=== PATIENT | female | born 1995 | race Caucasian/White ===

== ENCOUNTER 2021-02-21 18:49 | Emergency (ER) | payer OTHER, SELFPAY ==
[2021-02-21 19:03] VITALS: BP 151/97; PULSE 110; RESP 18; TEMP 36.9; O2SAT 98
--- NOTE | 2021-02-21 19:22 | ED.URI ---
HPI - URI/Sore Throat General Chief Complaint: Upper Respiratory Infection Stated Complaint: trouble breathing Source: patient Mode of arrival: ambulatory History of Present Illness HPI Narrative: This is 26-year-old female with a history of asthma for the last week has had nasal congestion with sinus pressure and postnasal drip and currently having some audible wheezing with mild shortness of breath no chest pain no abdominal pain no nausea vomiting. The patient has albuterol but she has run out. Currently is no fever chills had a negative COVID approximately 2 weeks ago MD elicited complaint: cough, nasal congestion and sinus pain Pertinent past history: asthma Onset (ago): week(s) Consistency: constant Severity: moderate Description of mucous: clear Able to tolerate fluids by mouth: Yes Related Data Allergies Allergy/AdvReac Type Severity Reaction Status Date / Time No Known Allergies Allergy Verified 02/04/21 08:44 Review of Systems Review of Systems: All systems reviewed & are unremarkable except as noted in HPI and below PMFSH Past Medical History Medical History Asthma Chronic low back pain History of streptococcal sore throat Menorrhagia Morbid obesity Nicotine addiction Screening for cervical cancer Surgical History Surgical History Hx laparoscopic cholecystectomy Apr 2020 Family History Family History Father Family history of renal failure Grandparent Diabetes mellitus Social History Social History Smoking status: Current every day smoker Alcohol use details: denies alcohol use Substance use: never Substance use type: does not use Exam Const: General: no acute distress and alert Orientation/consciousness: patient oriented x3 HENMT: Head: normal to inspection Eyes: Conjunctivae: conjunctivae normal Pupils: Equal, round and reactive pupils present Neck: Neck: normal visual inspection, no lymphadenopathy and no meningeal signs Chest: Chest palpation & inspection: normal inspection of the chest Resp: Effort & Inspection: normal respiratory effort Auscultation: wheezes Cardio: Rate: regular rate and tachycardic GI: GI Palp: Yes Soft to palpation Percussion: Yes normal to percussion : General: Yes no CVA tenderness Skin: General skin exam: normal color Rashes: no rashes Extrem: General: normal to inspection Course Course Emergency Course: patient received a g of ceftriaxone, nebulizer treatment and IM steroids and symptoms have improved. Vital Signs Vital signs: Vital Signs Temperature 36.9 C 02/21/21 19:03 Pulse Rate 110 H 02/21/21 19:03 Respiratory Rate 18 02/21/21 19:03 Blood Pressure 151/97 H 02/21/21 19:03 Pulse Oximetry 98 02/21/21 19:03 Temperature 36.9 C 02/21/21 19:03 Pulse Rate 110 H 02/21/21 19:03 Respiratory Rate 18 02/21/21 19:03 Blood Pressure 151/97 H 02/21/21 19:03 Pulse Oximetry 98 02/21/21 19:03 Critical Care Time Critical Care Time Critical Care Time: No Discharge Plan Discharge Clinical Impression: Upper respiratory tract infection Qualifiers: URI type: unspecified URI Qualified Code(s): J06.9 - Acute upper respiratory infection, unspecified Patient Disposition: Home, Self-Care Condition: Stable Instructions: Antibiotic Form, Upper Respiratory Infection (ED) Additional Instructions: take medicine as prescribed and follow-up with primary care physician if symptoms persist or worsen. Prescriptions: New albuterol sulfate [ProAir HFA] 90 mcg/actuation HFA aerosol inhaler 2 puff inhalation QID PRN (Reason: shortness of breath or wheezing) Qty: 6.7 RF: 0 prednisone 20 mg tablet 20 mg PO DAILY 5 Days Qty: 5 RF: 0 azithromycin [Zithromax Z-Pa
[2021-02-21 19:25] VITALS: PULSE 110; RESP 20; O2SAT 97
[2021-02-21] MEDS: cefTRIAXone 1 GM VIAL IM (19:27)
[2021-02-21] MEDS: ALBUTEROL SULFATE NEB 1.25 MG/3 ML INH INHALATION (19:30)
[2021-02-21] MEDS: LIDOCAINE HCL 1% LOCAL INJ 20 ML VIAL (19:31)
[2021-02-21] MEDS: methylPREDNISolone ACETATE 40 MG/ML VIAL 80 MG IM (19:31)
[2021-02-21 19:38] VITALS: PULSE 105; RESP 20; O2SAT 98
[2021-02-21 19:42] VITALS: BP 142/96; PULSE 103; RESP 20; TEMP 36.6; O2SAT 96
== END 2021-02-21 19:48 | disposition home or self-care (01) ==
PROVIDERS: Emergency Provider Emergency Medicine
DX: J06.9 Acute upper respiratory infection, unspecified (principal)
CPT/HCPCS: 94640; 96372; 99283; 99284; J0696; J1030

== ENCOUNTER 2021-04-27 17:16 | Emergency (ER) | payer OTHER, SELFPAY ==
--- NOTE | ~2021-04-27 | XR_ITS ---
EXAMINATION: XR chest 1V portable INDICATION: Cough and shortness of breath TECHNIQUE: Portable AP chest at 1814 hours COMPARISON: None available FINDINGS: There are minimal airspace opacities of the lung bases. No pleural effusion or pneumothorax is identified. The cardiomediastinal silhouette is normal. IMPRESSION: 1. Minimal bibasilar airspace opacities, consistent with atelectasis versus pneumonia. Reviewed, dictated and finalized at location F. [facility] ASSISTANT IMPRESSION: 1. Minimal bibasilar airspace opacities, consistent with atelectasis versus pne umonia.
[2021-04-27 17:38] VITALS: BP 135/69; PULSE 100; RESP 20; TEMP 36.3; O2SAT 98
--- NOTE | 2021-04-27 17:51 | ED.URI ---
HPI - URI/Sore Throat General Chief Complaint: Upper Respiratory Infection Stated Complaint: possible bronchitis Source: patient and RN notes reviewed Mode of arrival: ambulatory Limitations: no limitations History of Present Illness HPI Narrative: patient started out with headache body aches runny nose and congestion 9 days ago. Then 3 days ago she started coughing. She took an [id number] COVID test that was negative. MD elicited complaint: cough, sore throat, rhinorrhea and nasal congestion Onset (ago): day(s) (3) Consistency: constant Able to tolerate fluids by mouth: Yes Exacerbating factors: other (coughing) Relieving factors: nothing Treatments prior to arrival: none Related Data Home Medications Medication Instructions Recorded Confirmed No Home Medications 04/27/21 04/27/21 Allergies Allergy/AdvReac Type Severity Reaction Status Date / Time No Known Allergies Allergy Verified 04/27/21 17:50 Review of Systems Review of Systems: All systems reviewed & are unremarkable except as noted in HPI and below PMFSH Past Medical History Medical History Asthma Chronic low back pain History of streptococcal sore throat Menorrhagia Morbid obesity Nicotine addiction Screening for cervical cancer Surgical History Surgical History Hx laparoscopic cholecystectomy Apr 2020 Family History Family History Father Family history of renal failure Grandparent Diabetes mellitus Social History Social History Smoking status: Current every day smoker Alcohol use details: denies alcohol use Substance use: never Substance use type: does not use Exam Const: General: healthy appearing, no acute distress and alert Nutritional Appearance: well nourished and obese morbidly obese Orientation/consciousness: patient oriented x3 Other: Female nurse in room during examination. HENMT: Head: normal to inspection Ears: external ears normal Eyes: Conjunctivae: conjunctivae normal Pupils: Equal, round and reactive pupils present EOM: EOMs intact bilaterally Neck: Neck: normal visual inspection Resp: Effort & Inspection: normal respiratory effort Auscultation: clear to auscultation bilaterally Cardio: Rate: regular rate Rhythm: regular rhythm GI: GI Palp: Yes Soft to palpation and No Tenderness to palpation present (GI) Auscultation: normal bowel sounds Back/Spine/Pelvis: Cervical Spine: cervical ROM normal Thoracic/Lumbar Spine: thoraco-lumbar ROM normal Skin: General skin exam: normal color Rashes: no rashes Neuro: General: patient oriented x3, moves all extremities, no meningeal signs, no focal motor deficits and CN's II-XI intact bilaterally Speech: normal speech Gait exam (Neuro): Normal gait present Extrem: General: normal to inspection and no clubbing, cyanosis or edema Psych: Appearance: grossly normal and well kempt Mental Status: mental status grossly normal Affect: normal affect and Anxious affect present Attitude: cooperative Thought content: Yes Normal thought content present Course Vital Signs Vital signs: Vital Signs Temperature 36.3 C L 04/27/21 17:38 Pulse Rate 100 04/27/21 17:38 Respiratory Rate 20 04/27/21 17:38 Blood Pressure 135/69 04/27/21 17:38 Pulse Oximetry 98 04/27/21 17:38 Temperature 36.3 C L 04/27/21 17:38 Pulse Rate 100 04/27/21 17:38 Respiratory Rate 20 04/27/21 17:38 Blood Pressure 135/69 04/27/21 17:38 Pulse Oximetry 98 04/27/21 17:38 MDM - URI/Sore Throat Lab Data Labs: Lab Results 04/27/21 Range/Units 18:00 SARS-CoV-2 RNA (RT-PCR) Negative (Negative) Discharge Plan Discharge Clinical Impression: Bronchitis Patient Disposition: Home, Self-Care Condition: Stabl
--- NOTE | 2021-04-27 17:59 | PC.NURSE ---
Assisted Dr. Bolton with exam. Covid swab obtained and walked to lab.
[2021-04-27 18:50] LABS: SARS-CoV-2 RNA PCR Negative (Negative)
== END 2021-04-27 19:20 | disposition home or self-care (01) ==
PROVIDERS: Emergency Provider Emergency Medicine
DX: J40 Bronchitis, not specified as acute or chronic (principal); Z20.822 Contact with and (suspected) exposure to COVID-19
CPT/HCPCS: 71045; 99282; 99283; C9803; U0003; U0005

== ENCOUNTER 2021-07-14 19:29 | Emergency (ER) | payer OTHER, SELFPAY ==
--- NOTE | ~2021-07-14 | XR_ITS ---
XR foot RT 2V DATE: 07/14/2021 20:10 INDICATION: Twisted ankle during a fall. Right ankle and foot pain TECHNIQUE: AP and lateral views COMPARISON: None FINDINGS: No fracture or dislocation, periosteal reaction or bone destruction. Joint spaces are prese rved. No erosive change. IMPRESSION: Negative Reviewed, dictated and finalized at location A. IMPRESSION: Negative
--- NOTE | ~2021-07-14 | XR_ITS ---
XR ankle RT min 3V DATE: 07/14/2021 20:10 INDICATION: Twisted ankle during a fall. Lateral pain. TECHNIQUE: 4 views of ankle COMPARISON: None FINDINGS: No fracture or dislocation of the ankle or disruption of the ankle mortise. No periosteal r eaction or bone destruction. IMPRESSION: Negative Reviewed, dictated and finalized at location A. IMPRESSION: Negative
[2021-07-14 19:49] VITALS: BP 129/77; PULSE 120; RESP 16; TEMP 37.1; O2SAT 93
--- NOTE | 2021-07-14 19:49 | ED.LOWEXIN ---
HPI - Extremity Injury (Lower) General Chief Complaint: Extremity Injury, Lower Stated Complaint: RT FOOT Time Seen by Provider: 07/14/21 19:50 History of Present Illness HPI Narrative: 26-year-old female patient is here with complaints of twisting her ankle around 2:00 p.m. this afternoon while stepping out of her porch. She states that she has been unable to bear weight on the entire foot but has been walking on her toes since then. She is complaining of pain around the ankle and in the big toe area. She denies any other injuries. She denies any numbness or tingling to the toes. Patient has used some leftover crutches from before but states that she is not sure how to use them. Patient is not on any blood thinners. Does have history of asthma and uses albuterol inhaler. She has no known allergies. She is generally in good health. Denies COVID exposure Related Data Home Medications Medication Instructions Recorded Confirmed albuterol sulfate 90 mcg INHALATION PRN 07/14/21 07/14/21 Allergies Allergy/AdvReac Type Severity Reaction Status Date / Time No Known Allergies Allergy Verified 07/14/21 19:55 Review of Systems Review of Systems: All systems reviewed & are unremarkable except as noted in HPI and below PMFSH Past Medical History Medical History Asthma Chronic low back pain History of streptococcal sore throat Menorrhagia Morbid obesity Nicotine addiction Screening for cervical cancer Surgical History Surgical History Hx laparoscopic cholecystectomy Apr 2020 Family History Family History Father Family history of renal failure Grandparent Diabetes mellitus Social History Social History Smoking status: Current every day smoker Alcohol use details: denies alcohol use Substance use: never Substance use type: does not use Exam Narrative: Alert female patient in no acute distress. Stable vital signs. HEENT grossly normal. No respiratory distress. Right lower extremity is examined in patient has minimal swelling around the ankle area. There is no obvious deformity. There is tenderness over the lateral malleolar area and the proximal foot. Range of motion is reduced. Distal neurovascular status is intact. The rest of the physical examination is normal Course Course Emergency Course: x-ray of the right foot and right ankle have been reported negative by the radiologist. No fractures or any dislocation is noted. patient will be given ketorolac for pain relief and she is aware of the discharge plans. She is also fitted with a walking boot since she is a little apprehensive about using crutches. Discharge Plan Discharge Clinical Impression: Ankle sprain Patient Disposition: Home, Self-Care Condition: Stable Instructions: Ankle Sprain (ED) Additional Instructions: Use the walking boot to ambulate with for the next 3-5 days. Elevate and ice the right foot and ankle as needed to keep the swelling down. Tylenol 500 mg and ibuprofen 400 mg every 6-8 hours as needed for pain. Follow-up with your primary care provider in 1 week or sooner as needed. Prescriptions: No Action albuterol sulfate 90 mcg/actuation HFA aerosol inhaler 90 mcg INHALATION PRN RF: 0 Follow-up/Referrals: UNKNOWN,DOCTOR [Primary Care Provider] - Time of Disposition: 20:33
[2021-07-14] MEDS: KETOROLAC (*BKC) 60 MG/2 ML VIAL IM (20:37)
[2021-07-14 20:57] VITALS: BP 130/80; PULSE 100; RESP 16; TEMP 36.6; O2SAT 98
== END 2021-07-14 20:59 | disposition home or self-care (01) ==
PROVIDERS: Emergency Provider Emergency Medicine
DX: S93.401A Sprain of unspecified ligament of right ankle, initial encounter (principal)
CPT/HCPCS: 73610; 73620; 96372; 99283; J1885; L2112

== ENCOUNTER 2021-07-28 03:47 | Emergency (ER) | payer OTHER, SELFPAY ==
--- NOTE | ~2021-07-28 | XR_ITS ---
EXAMINATION: XR chest 1V portable INDICATION: Shortness of breath and wheezing TECHNIQUE: Portable AP chest at 0556 hours COMPARISON: 04/27/2021 FINDINGS: The lung volumes are low. The lungs are free of acute opacities. There is no pleural effusi on or pneumothorax. The cardiomediastinal silhouette is normal. IMPRESSION: 1. No acute cardiopulmonary abnormality. Reviewed, dictated and finalized at location A.
[2021-07-28 04:01] VITALS: BP 167/99; PULSE 110; RESP 21; TEMP 36.7; O2SAT 98
--- NOTE | 2021-07-28 04:58 | ECG_ITS ---
Measurements Intervals [place] Rate: 104 P: 55 CA: 152 QRS: -13 QRSD: 93 T: 14 QT: 325 QTc: 428 Interpretive Statements SINUS TACHYCARDIA LOW QRS VOLTAGE IN PRECORDIAL LEADS [QRS DEFLECTION < 1.0 mV IN CHEST LEADS] POSSIBLE ANTERIOR MYOCARDIAL INFARCTION , PROBABLY OLD [30 ms Q WAVE IN V3/V4, OR R < 0.2 mV IN V4] ABNORMAL ECG NO PREVIOUS ECG AVAILABLE FOR COMPARISON Electronically Signed On 07-28-2021 17:51:43 CDT by Thaddeus Jaime M.D.
[2021-07-28] MEDS: IPRATROPIUM 0.5 MG/ALBUTEROL SULFATE 2.5 MG AMPUL.NEB 3 ML INHALATION (05:14)
[2021-07-28 05:15] VITALS: PULSE 113; RESP 20; O2SAT 96
[2021-07-28 05:23] VITALS: PULSE 108; RESP 20
[2021-07-28] MEDS: methylPREDNISolone SOD SUCC 125 MG VIAL IV PUSH (05:25)
[2021-07-28] MEDS: guaiFENesin 12 HR 600 MG TABCR PO (05:25)
[2021-07-28] MEDS: SODIUM CHLORIDE 0.9% IV 500 ML 999 ML IV CONT (05:28)
[2021-07-28 05:34] LABS: Base Excess ABG 0.5 mmol/L (0-2); HCO3 ABG 23.8 mmol/L (23-29); Oxygen Content ABG 19.6 %vol (16.0-22.0); Oxygen Saturation ABG 94.4 % (95-97); Oxyhemoglobin 92.8 % (94-100); PCO2 ABG 34.7 mmHg (35-45); PO2 ABG 67.5 mmHg (80-90); pH ABG 7.46 (7.35-7.45)
[2021-07-28 05:37] LABS: Basophils Absolute Auto 0.05 K/mm3 (0.00-0.10); Basophils Percent Auto 0.5 % (0.0-1.0); Eosinophils Absolute Auto 0.61 K/mm3 (0.02-0.50); Eosinophils Percent Auto 5.6 % (1.0-6.0); Hematocrit 41.7 % (35.0-49.0); Hemoglobin 14.3 g/dL (12.0-15.0); Immature Granulocyte Percent A 0.9 % (0.0-0.0); Lymphocytes Absolute Auto 2.84 K/mm3 (1.10-4.50); Lymphocytes Percent Auto 25.9 % (18.0-42.0); Mean Corpuscular HGB Conc 34.3 g/dL (32.0-36.0); Mean Corpuscular Hemoglobin 30.5 pg (27.0-31.0); Mean Corpuscular Volume 88.9 fL (78.0-102.0); Mean Platelet Volume 9.7 fl (9.2-11.8); Monocytes Absolute Auto 0.77 K/mm3 (0.10-0.90); Neutrophils Absolute Auto 6.6 K/mm3 (1.7-7.2); Neutrophils Percent Auto 60.1 % (50.0-70.0); Platelet Count Result 341 K/mm3 (150-420); Red Blood Count 4.69 M/mm3 (4.20-5.40); Red Cell Distribution Width 12.5 % (11.6-14.4)
[2021-07-28 05:39] LABS: Add Urine Microscopic? NO; Appearance Urine Clear (Clear); Bilirubin Urine Negative (Negative); Blood Urine Negative (Negative); Color Urine Light Yellow (Yellow); Device ROOM AIR; Glucose Urine UA Negative (Negative); Ketones Urine Negative (Negative); Leukocyte Esterase Ur Negative LEU/UL (Negative); Modified Allen's Test Pass; Nitrate Urine Negative (Negative); Protein Urine Negative (Negative); Site Drawn LEFT RADIAL; Specific Grav Ur 1.015 (1.010-1.020); pH Urine 7.5 (5.0-8.0)
[2021-07-28 06:01] LABS: Alanine Aminotransferase 61 U/L (14-59); Albumin Level 3.7 g/dL (3.4-5.0); Alkaline Phosphatase 90 U/L (46-116); Anion Gap 10 mmol/L (8-16); Aspartate Amino Transferase 22 U/L (15-37); Bilirubin,Total 0.4 mg/dL (0.00-1.00); Blood Urea Nitrogen 14 mg/dL (7-18); Calcium 8.7 mg/dL (8.5-10.1); Carbon Dioxide 26 mmol/L (21-32); Chloride 104 mmol/L (98-108); Estimated Glomerular Filt Rate > 60; Glucose 107 mg/dL (70-99); NT Pro B Type Natriuretic Pept 40 pg/mL (0-125); Osmolality Calculated 290 mOsm/kg (285-295); Potassium 3.8 mmol/L (3.5-5.1); Sodium 140 mmol/L (136-145); Total Protein 7.5 g/dL (6.4-8.2); Troponin I 4.8 ng/L (0.00-60.4)
--- NOTE | 2021-07-28 06:06 | ED.SOB ---
HPI - SOB/Dyspnea General Chief Complaint: Shortness of Breath/Dyspnea Stated Complaint: SOB Time Seen by Provider: 07/28/21 03:49 Source: patient and RN notes reviewed Mode of arrival: ambulatory Limitations: no limitations History of Present Illness MD elicited complaint: shortness of breath and cough Pertinent past history: other (recurrent bronchitis) Onset (ago): week(s) (2) Timing: constant Severity: moderate Exacerbating factors: exertion Relieving factors: bronchodilators Associated symptoms: cough and wheezing Treatment prior to arrival: none Related Data Home Medications Medication Instructions Recorded Confirmed albuterol sulfate 90 mcg INHALATION PRN 07/14/21 07/28/21 Allergies Allergy/AdvReac Type Severity Reaction Status Date / Time No Known Allergies Allergy Verified 07/28/21 03:57 Review of Systems Review of Systems: All systems reviewed & are unremarkable except as noted in HPI and below PMFSH Past Medical History Medical History Asthma Bronchitis Chronic low back pain History of streptococcal sore throat Menorrhagia Morbid obesity Nicotine addiction Screening for cervical cancer Surgical History Surgical History Hx laparoscopic cholecystectomy Apr 2020 Family History Family History Father Family history of renal failure Grandparent Diabetes mellitus Social History Social History Smoking status: Current every day smoker Alcohol use details: denies alcohol use Substance use: never Substance use type: does not use Exam Const: General: no acute distress and alert Nutritional Appearance: obese Orientation/consciousness: patient oriented x3 Limitations: no limitations HENMT: Ears: external ears normal, TM's normal bilaterally and EAC's normal General nose exam: Normal external nose present and Normal nares present Face and sinus: normal facial exam and sinuses nontender Mouth: Yes moist mucous membranes Teeth and gingiva: dentition normal Throat: posterior oropharynx normal Eyes: Conjunctivae: conjunctivae normal Pupils: Equal, round and reactive pupils present EOM: EOMs intact bilaterally Neck: Neck: normal visual inspection and no lymphadenopathy Chest: Chest palpation & inspection: normal inspection of the chest Resp: Effort & Inspection: normal respiratory effort Auscultation: rales, rhonchi and wheezes Cardio: Rate: regular rate Rhythm: regular rhythm GI: GI Palp: Yes Soft to palpation and No Tenderness to palpation present (GI) Auscultation: normal bowel sounds : General: Yes bladder normal to palpation and Yes no CVA tenderness Back/Spine/Pelvis: Back: no CVA tenderness Skin: General skin exam: normal color Rashes: no rashes Neuro: General: patient oriented x3, moves all extremities, no meningeal signs, no focal motor deficits and CN's II-XI intact bilaterally Extrem: General: normal to inspection and no pedal edema Psych: Mental Status: mental status grossly normal Affect: normal affect Thought content: Yes Normal thought content present Course Course Emergency Course: Pt was stable in the ED. no acute wheeing or SOB. Reevaluation(s) Date: 07/28/21 Time: 04:45 Vital Signs Vital signs: Vital Signs Temperature 36.7 C 07/28/21 04:01 Pulse Rate 110 H 07/28/21 04:01 Respiratory Rate 21 H 07/28/21 04:01 Blood Pressure 167/99 H 07/28/21 04:01 Pulse Oximetry 98 07/28/21 04:01 Temperature 37.1 C 07/28/21 06:34 Pulse Rate 102 H 07/28/21 06:34 Respiratory Rate 22 H 07/28/21 06:34 Blood Pressure 150/102 H 07/28/21 06:34 Pulse Oximetry 96 07/28/21 06:34 MDM - SOB/Dyspnea Differential Diagnosis Differential diagnosis: Likely acute exacerbation of chronic obstructive
[2021-07-28 06:34] VITALS: BP 150/102; PULSE 102; RESP 22; TEMP 37.1; O2SAT 96
== END 2021-07-28 06:35 | disposition home or self-care (01) ==
PROVIDERS: Emergency Provider Emergency Medicine
DX: J40 Bronchitis, not specified as acute or chronic (principal); J44.1 Chronic obstructive pulmonary disease with (acute) exacerbation
CPT/HCPCS: 36415; 36600; 71045; 80053; 81003; 82805; 83880; 84484; 85025; 93005; 94640; 96361; 96374; 99284; A9270; J2930; J7040

== ENCOUNTER 2022-03-07 00:05 | Emergency (ER) | payer OTHER, SELFPAY ==
--- NOTE | 2022-03-07 00:12 | ED.SOB ---
HPI - SOB/Dyspnea General Chief Complaint: Upper Respiratory Infection Stated Complaint: Bronchitis Time Seen by Provider: 03/07/22 00:09 Source: patient Mode of arrival: ambulatory History of Present Illness HPI Narrative: 27-year-old female, smoker with obesity, childhood asthma, recurrent bronchitis requiring bronchodilators/steroids, COVID in October of 2020, presents to the ER with 1 week history of -- cough with mucoid / mucopurulent sputum -- worsening shortness of breath worse on lying down -- wheezing no fever/chest pain MD elicited complaint: shortness of breath and cough Pertinent past history: COPD and asthma Onset (ago): day(s) ( started 2 days ago) Context: smoke/fume exposure Severity: moderate Exacerbating factors: exertion Relieving factors: rest Known history of: COPD and asthma Associated symptoms: denies other symptoms Treatment prior to arrival: none Related Data Home oxygen amount: none Home Medications Medication Instructions Recorded Confirmed albuterol sulfate 90 mcg/actuation 90 mcg inhalation PRN 07/14/21 03/07/22 aerosol inhaler tizanidine 4 mg tablet 4 mg PO HS 03/07/22 03/07/22 Allergies Allergy/AdvReac Type Severity Reaction Status Date / Time No Known Allergies Allergy Verified 07/28/21 03:57 Review of Systems Review of Systems: All systems reviewed & are unremarkable except as noted in HPI and below Constitutional: Constitutional: Reports as per HPI and Reports no additional constitutional complaints Eyes: Eyes: Reports as per HPI and Reports no additional eye complaints ENT: Reports system reviewed and no additional complaints, except as documented and Reports as per HPI Cardiovascular: Cardiovascular: Reports as per HPI and Reports no additional cardiovascular complaints Respiratory: Respiratory: Reports as per HPI, Reports no additional respiratory complaints, Reports cough, Reports dyspnea and Reports wheezing Gastrointestinal: Gastrointestinal: Reports as per HPI and Reports no additional gastrointestinal complaints Genitourinary: Genitourinary: Reports no additional female genitourinary complaints Musculoskeletal: Musculoskeletal: Reports no additional musculoskeletal complaints and Reports as per HPI Integumentary/Breasts: Skin/Breast: Reports system reviewed and no additional complaints, except as docu and Reports as per HPI Neurologic: Reports system reviewed and no additional complaints, except as documented and Reports as per HPI Psychiatric: Psychiatric: Reports no additional psychiatric complaints and Reports as per HPI Endocrine: Endocrine: Reports no additional endocrine complaints and Reports as per HPI Hematologic/Lymphatic: Hematologic/Lymphatic: Reports no additional hematologic/lymphatic complaints and Reports as per HPI Allergic/Immunologic: Allergic/Immunologic: Reports no additional allergic/immunologic complaints and Reports as per HPI PMFSH Past Medical History Medical History Asthma Bronchitis Chronic low back pain History of streptococcal sore throat Menorrhagia Morbid obesity Nicotine addiction Screening for cervical cancer Surgical History Surgical History Hx laparoscopic cholecystectomy Apr 2020 Family History Family History Father Family history of renal failure Grandparent Diabetes mellitus Social History Social History Smoking status: Current every day smoker Alcohol use details: denies alcohol use Substance use: never Substance use type: does not use Exam Const: General: healthy appearing and no acute distress Nutritional Appearance: well nourished Orientation/consciousness: patient oriented x3 Limitations: no limitations HENMT: Head: normal to inspection Ears: ex
[2022-03-07 00:18] VITALS: BP 152/91; PULSE 109; RESP 20; TEMP 36.6; O2SAT 96
[2022-03-07] MEDS: IPRATROPIUM 0.5 MG/ALBUTEROL SULFATE 2.5 MG AMPUL.NEB 3 ML INHALATION (00:25)
[2022-03-07 00:26] VITALS: PULSE 107; RESP 18; O2SAT 97
[2022-03-07 00:32] VITALS: PULSE 104; RESP 18; O2SAT 97
[2022-03-07 00:59] LABS: Strep Group A RT-PCR Not Detected (Negative)
[2022-03-07 01:02] LABS: Influenza A QL RT-PCR Negative (Negative); Influenza B QL RT-PCR Negative (Negative); SARS-CoV-2 RNA PCR Negative (Negative)
[2022-03-07 01:08] LABS: RSV RNA, RT-PCR Negative (Negative)
[2022-03-07] MEDS: AZITHROMYCIN 250 MG TABLET 500 MG PO (01:31)
[2022-03-07] MEDS: methylPREDNISolone SOD SUCC 125 MG VIAL 40 MG IM (01:31)
[2022-03-07 01:40] VITALS: BP 121/79; PULSE 100; RESP 20; TEMP 36.6; O2SAT 98
[2022-03-07 01:45] VITALS: PULSE 101; RESP 18; O2SAT 97
[2022-03-07] MEDS: ALBUTEROL SULFATE (*SP) INHALER 2 PUFF INHALATION (01:47)
[2022-03-07 01:49] VITALS: PULSE 101; RESP 18; O2SAT 97
== END 2022-03-07 01:50 | disposition home or self-care (01) ==
PROVIDERS: Emergency Provider Internal Medicine Critical Care Medicine
DX: J45.909 Unspecified asthma, uncomplicated (principal); J44.1 Chronic obstructive pulmonary disease with (acute) exacerbation; Z20.822 Contact with and (suspected) exposure to COVID-19; F17.200 Nicotine dependence, unspecified, uncomplicated
CPT/HCPCS: 87502; 87634; 87651; 94640; 96372; 99284; A9270; J2930; U0003; U0005

== ENCOUNTER 2022-07-14 16:00 | Outpatient (CLI) | payer OTHER, SELFPAY ==
--- NOTE | ~2022-07-14 | XR_ITS ---
EXAMINATION: XR wrist LT min 3V DATE: 07/14/2022 17:08 INDICATION: Left wrist pain TECHNIQUE: Posteroanterior, ulnar deviation, oblique, and lateral views of the left wrist were obtain ed. COMPARISON: None available FINDINGS: No fracture, dislocation, or subluxation. The bones, soft tissues, and joint spaces are nor mal. IMPRESSION: 1. No acute osseous abnormality. Reviewed, dictated and finalized at location F.
--- NOTE | ~2022-07-14 | XR_ITS ---
EXAMINATION: XR thoracic spine 3V DATE: 07/14/2022 17:06 INDICATION: Thoracic back pain TECHNIQUE: AP, lateral and lateral swimmer's views of the thoracic spine were obtained. COMPARISON: None. FINDINGS: No fracture, dislocation, or subluxation. The vertebral body heights, alignment, and interv ertebral disc spaces are normal. The paravertebral soft tissues are unremarkable. Surgical clips in t he right upper quadrant are likely from prior cholecystectomy. IMPRESSION: 1. No acute osseous abnormality. Reviewed, dictated and finalized at location F.
--- NOTE | ~2022-07-14 | XR_ITS ---
EXAMINATION: XR lumbar spine 2-3V DATE: 07/14/2022 17:07 INDICATION: Chronic low back pain TECHNIQUE: Anteroposterior and lateral views of the lumbar spine, and cone-down lateral view of the l umbosacral junction were obtained. COMPARISON: None. FINDINGS: Small degenerative osteophytes project from the anterior endplates of multiple vertebral last dies. Bone alignment is normal. There is no fracture. There is mild loss of intervertebral disc space height at L5-S1. Surgical clips in the right upper quadrant are likely from prior cholecystectomy. IMPRESSION: 1. Mild lumbar spondylosis without acute findings. Reviewed, dictated and finalized at location F.
== END 2022-07-14 16:01 | disposition home or self-care (01) ==
LOC: CHSIMG 16:02
PROVIDERS: PCP Family Medicine; Visit Provider Family Medicine
DX: M79.642 Pain in left hand (principal); M43.06 Spondylolysis, lumbar region
CPT/HCPCS: 72072; 72100; 73110

== ENCOUNTER 2022-07-21 14:44 | Outpatient (RCR) | payer OTHER, SELFPAY ==
--- NOTE | 2022-07-21 16:07 | PTOPEVAL1 ---
Assessment and note entered by Crystal Ochoa DPT Evaluation Information Assessment Status Evaluation Diagnosis low back pain Onset 07/15/22 Subjective Information Patient reports chronic lo wback pain that has increase in the last ~3months. Patient reports low back pain that started radiating to the R LE. She reports that now pain is no longer radiating but is moving to mid back region. She reports pain has been going on for >5 years after falling down stairs and being hit in the back multiple times. She reports difficulty with lifting, walking and performing heavy house hold chores. She reports she sleeps on her stomach all night and pain is intense in the mornings. She is not working due to back pain. Reported Pain Level Pain Score 3: Self Report Assessment PT Clinical Summary Patient is a 27 year old female who presents to PT with low back pain. She demonstrates painful R lumbar sidebend, decreased R LE strength and impaired posture impairing her ability to ambulate prolonged distances, lift and perform heavy house hold chores. She would benefit from skilled PT to address impairments and return to PLOF. Plan of Care Interventions Electrical Stimulation,Hot Pack/Cold Pack,Manual Therapy,Mechanical Traction,Neuro Re-education, Patient/Caregiver Educati,Therapeutic Activities, Therapeutic Exercise PT Services Indicated Yes Treatment Frequency and 2x weekly for 12 visits Duration These treatments will address the objective and functional deficits as defined above. The patient will be advanced safely and appropriately in order for the patient to progress towards his/her prior level of function. Additional exercises will be introduced and as well as a comprehensive home exercise program upon discharge, if needed, ?to ensure carryover of functional gains achieved in the clinic. This treatment plan has been reviewed and agreement upon by the patient.
== END 2022-08-18 16:19 | disposition home or self-care (01) ==
LOC: CHSPT 14:44
PROVIDERS: PCP Family Medicine; Visit Provider Family Medicine
DX: M54.9 Dorsalgia, unspecified (principal)
CPT/HCPCS: 97012; 97014; 97110; 97140; 97161; G0283

== ENCOUNTER 2022-07-31 17:09 | Emergency (ER) | payer OTHER, SELFPAY ==
[2022-07-31 17:28] VITALS: BP 131/88; PULSE 100; RESP 20; TEMP 36.7; O2SAT 97
--- NOTE | 2022-07-31 17:29 | ED.GENADULT ---
HPI - General Adult General Chief complaint: Unspecified Stated complaint: emesis Time Seen by Provider: 07/31/22 17:32 History of Present Illness HPI narrative: The patient is a 27-year-old woman with history of depression, obesity, asthma, status post cholecystectomy. She had lunch at a restaurant I then subsequently felt weak nauseated then had 2 episodes of emesis. The last episode was on the way here. Still with some nausea. Had diaphoresis with the emesis. No diarrhea. Her boyfriend ate the same food without issues, although the patient also ate shrimp and crab there. She had some dizziness with the emesis, but now her dizziness has resolved. She feels better. No abdominal pain. No diarrhea. LMP 06/07/2022 (irregular) Related Data Home Medications Medication Instructions Recorded Confirmed bupropion HCl 150 mg 24 hr tablet, 150 mg PO DAILY 07/31/22 07/31/22 extended release Allergies Allergy/AdvReac Type Severity Reaction Status Date / Time No Known Allergies Allergy Verified 07/31/22 17:33 Review of Systems Review of Systems: All systems reviewed & are unremarkable except as noted in HPI and below Constitutional: Constitutional: Reports as per HPI, Reports no additional constitutional complaints, Denies chills, Denies excessive sweating, Denies fatigue, Denies fever(s), Denies headache(s) and Denies weakness Eyes: Eyes: Reports as per HPI, Reports no additional eye complaints, Denies change in vision and Denies photophobia ENT: Reports system reviewed and no additional complaints, except as documented, Reports as per HPI, Denies dysphagia, Denies vertigo, Reports dizziness (transient, now resolved), Denies headache(s), Denies lip swelling, Denies nasal congestion, Denies sore throat, Denies throat swelling and Denies tongue swelling Cardiovascular: Cardiovascular: Reports as per HPI, Reports no additional cardiovascular complaints, Denies chest pain, Denies syncope, Denies rapid heart rate and Denies dyspnea Respiratory: Respiratory: Reports as per HPI, Reports no additional respiratory complaints, Denies chest congestion, Denies cough, Denies dyspnea and Denies wheezing Gastrointestinal: Gastrointestinal: Reports as per HPI, Reports no additional gastrointestinal complaints, Denies abdominal pain (NO ABDOMINAL PAIN), Denies change in stool character, Denies constipation, Denies dysphagia, Denies diarrhea (NO DIARRHEA), Reports nausea and Reports vomiting Genitourinary: Genitourinary: Reports as per HPI, Denies hematuria, Denies urinary frequency, Denies dysuria, Denies urinary incontinence and Denies urinary urgency Musculoskeletal: Musculoskeletal: Reports no additional musculoskeletal complaints, Denies back pain, Denies myalgias, Denies arthralgias, Denies joint swelling and Denies numbness Integumentary/Breasts: Skin/Breast: Reports system reviewed and no additional complaints, except as docu, Denies pruritus, Denies erythema, Denies rash and Denies skin ulcer Neurologic: Reports system reviewed and no additional complaints, except as documented, Reports as per HPI, Denies confusion, Denies vertigo, Denies dizziness, Denies syncope, Denies headache(s), Denies focal weakness, Denies numbness and Denies weakness Psychiatric: Psychiatric: Reports as per HPI, Denies anxiety, Denies confusion, Denies depression, Denies homicidal ideation and Denies suicidal ideation Endocrine: Endocrine: Reports no additional endocrine complaints, Denies excessive sweating, Denies fatigue, Denies polydipsia and Denies polyuria Hematologic/Lymphatic: Hematologic/Lymphatic: Reports no additional hematologic/lymphatic complaints, Denies easy bleeding and Denies easy bruising Allergic/Immunologic: Allergic/Immunologic: Reports no additional allergic/immunologic complaints, Denies lip swelling, Denies throat swelling, Denies tongue swelling and Denies wheezing PMFSH Past Medical History Medical History (Reviewed 07/31/22 @ 17:40 by Lm
[2022-07-31] MEDS: ONDANSETRON HCL ODT 4 MG TABLET 8 MG PO (17:43)
[2022-07-31 18:00] LABS: Bilirubin Urine Negative (Negative); Blood Urine 1+ (Negative); Color Urine Yellow (Yellow); Glucose Urine UA Negative (Negative); Ketones Urine Negative (Negative); Leukocyte Esterase Ur Negative LEU/UL (Negative); Nitrate Urine Negative (Negative); Protein Urine 1+ (Negative); Specific Grav Ur >= 1.030 (1.010-1.020); Urobilinogen Urine 0.2 mg/dL (0.2-1.0)
[2022-07-31 18:07] LABS: Pregnancy On Board Control Positive; Urine Pregnancy Test Negative
[2022-07-31 18:08] LABS: Add Urine Microscopic? YES; Amorphous Sediment Urine Heavy; Appearance Urine Cloudy (Clear); Bacteria Urine 2+ /hpf; Mucus Urine Heavy /lpf; Squamous Epithelial Cell Urine Many /hpf (Few)
[2022-07-31 18:23] VITALS: BP 128/84; PULSE 98; RESP 20; TEMP 36.7; O2SAT 99
== END 2022-07-31 18:24 | disposition home or self-care (01) ==
PROVIDERS: Emergency Provider Emergency Medicine; PCP Family Medicine
DX: R11.2 Nausea with vomiting, unspecified (principal); F32.A Depression, unspecified; J45.909 Unspecified asthma, uncomplicated; F17.200 Nicotine dependence, unspecified, uncomplicated; Z90.49 Acquired absence of other specified parts of digestive tract
CPT/HCPCS: 81001; 81025; 99283; A9270

== ENCOUNTER 2022-08-10 12:17 | Outpatient (CLI) | payer OTHER, SELFPAY | END 2022-08-10 12:18 | disposition home or self-care (01) | LOC: CHSCARD 12:20 | PROVIDERS: PCP Family Medicine; Visit Provider Family Medicine | DX: J45.20 Mild intermittent asthma, uncomplicated (principal) | CPT/HCPCS: 94060; 94726; 94729 ==

== ENCOUNTER 2022-08-12 09:08 | Outpatient (CLI) | payer OTHER, SELFPAY ==
--- NOTE | 2022-08-12 11:00 | NEURO_ITS ---
Impression: Patient reports a history of twitching in left hand/fingers and pain in the left palm. # Normal nerve conduction study. # Needle/EMG exam not requested. # Clinical correlation recommended. Nerve Conduction Studies Anti Sensory Summary Table Stim Site NR Peak (ms) P-T Amp (?V) Site1 Site2 Delta-P (ms) Dist (cm) Kenan (m/s) Left Median Anti Sensory (2-3nd Digit) Wrist 2.6 82.4 Wrist 2-3nd Digit 2.6 14.0 54 Wrist 2.6 73.8 Wrist 2-3nd Digit 2.6 14.0 54 Left Radial Anti Sensory (Base 1st Digit) Wrist 1.5 42.6 Wrist Base 1st Digit 1.5 0.0 Left Ulnar Anti Sensory (5th Digit) Wrist 2.3 40.0 Wrist 5th Digit 2.3 14.0 61 Motor Summary Table Stim Site NR Onset (ms) O-P Amp (mV) Site1 Site2 Delta-0 (ms) Dist (cm) Kenan (m/s) Left Median Motor (Abd Poll Brev) Wrist 2.5 6.1 Elbow Wrist 3.0 20.0 67 Elbow 5.5 5.1 Left Ulnar Motor (Abd Dig Minimi) Wrist 2.2 10.9 A Elbow Wrist 4.2 25.0 60 A Elbow 6.4 9.3 B Elbow Wrist 3.0 18.0 60 B Elbow 5.2 10.0 F Wave Studies NR F-Lat (ms) L-R F-Lat (ms) Left Median (Mrkrs) (Abd Poll Brev) 22.19 Left Ulnar (Mrkrs) (Abd Dig Min) 22.27 MTDD
== END 2022-08-12 09:09 | disposition home or self-care (01) ==
LOC: ANHNEURO 09:09
PROVIDERS: PCP Family Medicine; Visit Provider Family Medicine
DX: M79.642 Pain in left hand (principal)
CPT/HCPCS: 95909

== ENCOUNTER 2022-08-30 23:02 | Emergency (ER) | payer OTHER, SELFPAY ==
--- NOTE | ~2022-08-30 | XR_ITS ---
Clinical Indication: Cough PA and lateral views of the chest: Comparison: 07/28/2021 Findings: The lungs are clear, without evidence of focal consolidation or pleural effusion. Cardiome diastinal silhouette is within normal limits. Bones and soft tissues are unremarkable. Impression: Normal chest. Reviewed, dictated and finalized at location . Impression: Normal chest.
--- NOTE | 2022-08-30 23:05 | ED.SOB ---
HPI - SOB/Dyspnea General Chief Complaint: Shortness of Breath/Dyspnea Stated Complaint: SOB Time Seen by Provider: 08/30/22 23:03 Source: patient and RN notes reviewed Mode of arrival: ambulatory Limitations: no limitations History of Present Illness HPI Narrative: Patient states that she has been ill for about a week. She has a history of frequent ER visits due to her asthma and COPD. She continues to smoke. He says that then yesterday she began having some chest pain after coughing. She denies any fever chills. She is only using a MDI inhaler she does not have nebulizer at home. MD elicited complaint: shortness of breath and cough Pertinent past history: asthma Onset (ago): week(s) (1) Context: recent illness Timing: intermittent and progressively worsening Severity: moderate Exacerbating factors: exertion and coughing Relieving factors: nothing Known history of: COPD and asthma Associated symptoms: chest pain ( started yesterday after coughing) Treatment prior to arrival: none Related Data Home oxygen amount: none Home Medications Medication Instructions Recorded Confirmed bupropion HCl 300 mg 24 hr tablet, 300 mg PO DAILY 08/30/22 08/30/22 extended release (Wellbutrin XL) prazosin 1 mg capsule (Minipress) 1 mg PO DAILY 08/30/22 08/30/22 Allergies Allergy/AdvReac Type Severity Reaction Status Date / Time No Known Allergies Allergy Verified 07/31/22 17:33 Review of Systems Review of Systems: All systems reviewed & are unremarkable except as noted in HPI and below PMFSH Past Medical History Medical History Asthma Bronchitis Chronic low back pain History of streptococcal sore throat Menorrhagia Morbid obesity Nicotine addiction Screening for cervical cancer Surgical History Surgical History Hx laparoscopic cholecystectomy Apr 2020 Family History Family History Father Family history of renal failure Grandparent Diabetes mellitus Social History Social History Smoking status: Current every day smoker Alcohol use details: denies alcohol use Substance use: never Substance use type: does not use Living arrangements: with family Occupation/Education: unemployed Exam Const: General: healthy appearing, no acute distress and alert Nutritional Appearance: well nourished and obese morbidly obese Orientation/consciousness: patient oriented x3 Limitations: no limitations HENMT: Head: normal to inspection Ears: external ears normal Face/Nose/Sinus: Normal external nose present Face and sinus: normal facial exam Mouth: Yes moist mucous membranes Eyes: Conjunctivae: conjunctivae normal Pupils: Equal, round and reactive pupils present EOM: EOMs intact bilaterally Neck: Neck: normal visual inspection Resp: Effort & Inspection: normal respiratory effort Auscultation: clear to auscultation bilaterally Cardio: Rate: tachycardic Rhythm: regular rhythm GI: GI Palp: Yes Soft to palpation and No Tenderness to palpation present (GI) Auscultation: normal bowel sounds Back/Spine/Pelvis: Cervical Spine: cervical ROM normal Thoracic/Lumbar Spine: thoraco-lumbar ROM normal Skin: General skin exam: normal color Rashes: no rashes Neuro: General: patient oriented x3, moves all extremities, no focal motor deficits and CN's II-XI intact bilaterally Speech: normal speech Gait exam (Neuro): Normal gait present Extrem: General: normal to inspection and no clubbing, cyanosis or edema Psych: Mental Status: mental status grossly normal Affect: normal affect Attitude: cooperative Course Vital Signs Vital signs: Vital Signs Temperature 37.0 C 08/30/22 23:06 Pulse Rate 109 H 08/30/22 23:06 Respiratory Rate 21 H 08/30/22 23:06 Blood Pressure 158/94 H 05
[2022-08-30 23:06] VITALS: BP 156/94; BP 158/94; PULSE 109; PULSE 117; RESP 10; RESP 21; TEMP 36.9; TEMP 37; O2SAT 98; O2SAT 99
[2022-08-30] MEDS: IPRATROPIUM 0.5 MG/ALBUTEROL SULFATE 2.5 MG AMPUL.NEB 3 ML INHALATION (23:15)
[2022-08-30 23:16] VITALS: PULSE 81; RESP 20; O2SAT 97
[2022-08-30 23:22] VITALS: PULSE 96; RESP 16
[2022-08-30 23:30] LABS: Basophils Absolute Auto 0.04 K/mm3 (0.00-0.10); Basophils Percent Auto 0.3 % (0.0-1.0); Eosinophils Absolute Auto 0.61 K/mm3 (0.02-0.50); Eosinophils Percent Auto 5.2 % (1.0-6.0); Hemoglobin 14.8 g/dL (12.0-15.0); Immature Granulocyte Absolute 0.08 K/mm3 (0.00-0.00); Immature Granulocyte Percent A 0.7 % (0.0-0.0); Lymphocytes Absolute Auto 2.25 K/mm3 (1.10-4.50); Lymphocytes Percent Auto 19.3 % (18.0-42.0); Mean Corpuscular HGB Conc 34.4 g/dL (32.0-36.0); Mean Corpuscular Hemoglobin 29.5 pg (27.0-31.0); Mean Corpuscular Volume 85.8 fL (78.0-102.0); Mean Platelet Volume 9.2 fl (9.2-11.8); Monocytes Absolute Auto 0.55 K/mm3 (0.10-0.90); Monocytes Percent Auto 4.7 % (2.0-11.0); Neutrophils Absolute Auto 8.1 K/mm3 (1.7-7.2); Neutrophils Percent Auto 69.8 % (50.0-70.0); Platelet Count Result 370 K/mm3 (150-420); Red Blood Count 5.01 M/mm3 (4.20-5.40); Red Cell Distribution Width 12.6 % (11.6-14.4); White Blood Count 11.7 K/mm3 (4.8-10.8)
[2022-08-30 23:54] LABS: Alanine Aminotransferase 74 U/L (14-59); Albumin Level 3.9 g/dL (3.4-5.0); Alkaline Phosphatase 107 U/L (46-116); Anion Gap 11 mmol/L (8-16); Aspartate Amino Transferase 25 U/L (15-37); Bilirubin,Total 0.5 mg/dL (0.00-1.00); Blood Urea Nitrogen 16 mg/dL (7-18); CRP 1.9 mg/dL (0.0-0.9); Calcium 8.7 mg/dL (8.5-10.1); Carbon Dioxide 28 mmol/L (21-32); Chloride 102 mmol/L (98-108); Estimated Glomerular Filt Rate > 60; Glucose 140 mg/dL (70-99); NT Pro B Type Natriuretic Pept 43 pg/mL (0-125); Osmolality Calculated 295 mOsm/kg (285-295); Potassium 3.5 mmol/L (3.5-5.1); Sodium 141 mmol/L (136-145)
[2022-08-31] MEDS: methylPREDNISolone SOD SUCC 125 MG VIAL IM (00:16)
[2022-08-31] MEDS: AMOXICILLIN/CLAVULANATE K 875-125 MG TAB 1 TABLET PO (00:16)
[2022-08-31 00:25] VITALS: BP 155/88; PULSE 99; RESP 20; TEMP 36.7; O2SAT 100
== END 2022-08-31 00:27 | disposition home or self-care (01) ==
PROVIDERS: Emergency Provider Emergency Medicine; PCP Family Medicine
DX: J18.9 Pneumonia, unspecified organism (principal); J45.21 Mild intermittent asthma with (acute) exacerbation; J44.9 Chronic obstructive pulmonary disease, unspecified; F17.200 Nicotine dependence, unspecified, uncomplicated
CPT/HCPCS: 36415; 71046; 80053; 83880; 85025; 86140; 94640; 96372; 99283; A9270; J2930

== ENCOUNTER 2023-02-23 18:04 | Emergency (ER) | payer OTHER, SELFPAY ==
[2023-02-23] VITALS (16 sets, daily range): BP systolic 138–164; BP diastolic 90–103; PULSE 86–118; RESP 18–20; TEMP 36.6; O2SAT 94–100
--- NOTE | ~2023-02-23 | XR_ITS ---
EXAMINATION: XR chest 1V portable DATE: 02/23/2023 19:16 INDICATION: Cough. Shortness of breath. TECHNIQUE: A single frontal view of the chest was obtained on 2 radiographs. COMPARISON: Chest 2 views 08/30/2022 FINDINGS: There are mild airspace opacities in the lower lung zones. No pleural effusion or pneumotho rax. The heart size is normal. IMPRESSION: 1. Mild airspace opacities in the lower lung zones, consistent with atelectasis versus pneumonia. Reviewed, dictated and finalized at location E. CHAIN OPERATOR
--- NOTE | 2023-02-23 18:20 | ECG_ITS ---
Measurements Intervals [place] Rate: 113 P: 24 SC: 149 QRS: -10 QRSD: 102 T: 24 QT: 332 QTc: 456 Interpretive Statements SINUS TACHYCARDIA BORDERLINE R WAVE PROGRESSION, ANTERIOR LEADS BASELINE ARTIFACT- I, II, III, AVR, AVL, AVF ABNORMAL ECG COMPARED TO ECG 07/28/2021 05:12:31 NO SIGNIFICANT CHANGES Electronically Signed On 02-24-2023 7:14:37 TRIM SETTER HELPER by Mauricio Somers D.O.
--- NOTE | 2023-02-23 18:22 | ED.SOB ---
HPI - SOB/Dyspnea General Chief Complaint: Upper Respiratory Infection Stated Complaint: cough; chest congestion Time Seen by Provider: 02/23/23 18:12 Source: patient Mode of arrival: ambulatory Limitations: no limitations History of Present Illness HPI Narrative: 28-year-old female smoker with obesity, asthma/ bronchitis with recurrent flare up, chronic low back pain presents to the ER with a 3 day history of -- shortness of breath. no relief with bronchodilators. -- cough with mucopurulent sputum -- chest tightness /chest pain which is pleuritic. Her chest pain is related to coughing and deep breathing. It is unrelated to activity. No fever or chills. MD elicited complaint: shortness of breath, cough, pain with inspiration, chest pain and asthma attack Pertinent past history: COPD and asthma Onset (ago): day(s) ( Started 3 days ago) Severity: severe Exacerbating factors: exertion Relieving factors: nothing Known history of: COPD and asthma Associated symptoms: chest pain, cough and sputum production Treatment prior to arrival: bronchodilator Related Data Home oxygen amount: none Allergies Allergy/AdvReac Type Severity Reaction Status Date / Time No Known Allergies Allergy Verified 02/23/23 18:11 Review of Systems Review of Systems: All systems reviewed & are unremarkable except as noted in HPI and below Constitutional: Constitutional: Reports as per HPI and Reports no additional constitutional complaints Eyes: Eyes: Reports as per HPI and Reports no additional eye complaints ENT: Reports system reviewed and no additional complaints, except as documented and Reports as per HPI Cardiovascular: Cardiovascular: Reports as per HPI and Reports no additional cardiovascular complaints Respiratory: Respiratory: Reports as per HPI, Reports no additional respiratory complaints, Reports cough, Reports dyspnea and Reports wheezing Gastrointestinal: Gastrointestinal: Reports as per HPI and Reports no additional gastrointestinal complaints Genitourinary: Genitourinary: Reports no additional female genitourinary complaints Musculoskeletal: Musculoskeletal: Reports no additional musculoskeletal complaints and Reports as per HPI Integumentary/Breasts: Skin/Breast: Reports system reviewed and no additional complaints, except as docu and Reports as per HPI Neurologic: Reports system reviewed and no additional complaints, except as documented and Reports as per HPI Psychiatric: Psychiatric: Reports no additional psychiatric complaints and Reports as per HPI Endocrine: Endocrine: Reports no additional endocrine complaints and Reports as per HPI Hematologic/Lymphatic: Hematologic/Lymphatic: Reports no additional hematologic/lymphatic complaints and Reports as per HPI Allergic/Immunologic: Allergic/Immunologic: Reports no additional allergic/immunologic complaints and Reports as per HPI [facility] Past Medical History Medical History Asthma Bronchitis Chronic low back pain History of streptococcal sore throat Menorrhagia Morbid obesity Nicotine addiction Screening for cervical cancer Surgical History Surgical History Hx laparoscopic cholecystectomy Apr 2020 Family History Family History Father Family history of renal failure Grandparent Diabetes mellitus Social History Social History Smoking status: Current every day smoker Alcohol use details: denies alcohol use Substance use: never Substance use type: does not use Living arrangements: with family Occupation/Education: unemployed Exam Const: Orientation/consciousness: patient oriented x3 Limitations: no limitations HENMT: Head: normal to inspection Ears: external ears normal Face/Nose/Sinus: Normal external nose p
[2023-02-23] MEDS: IPRATROPIUM 0.5 MG/ALBUTEROL SULFATE 2.5 MG AMPUL.NEB 3 ML INHALATION (18:28)
[2023-02-23 18:43] LABS: Basophils Absolute Auto 0.06 K/mm3 (0.00-0.10); Basophils Percent Auto 0.5 % (0.0-1.0); Eosinophils Absolute Auto 0.47 K/mm3 (0.02-0.50); Eosinophils Percent Auto 3.9 % (1.0-6.0); Hematocrit 42.4 % (35.0-49.0); Hemoglobin 14.4 g/dL (12.0-15.0); Immature Granulocyte Absolute 0.07 K/mm3 (0.00-0.00); Immature Granulocyte Percent A 0.6 % (0.0-0.0); Lymphocytes Percent Auto 20.7 % (18.0-42.0); Mean Corpuscular Hemoglobin 29.6 pg (27.0-31.0); Mean Corpuscular Volume 87.2 fL (78.0-102.0); Mean Platelet Volume 9.5 fl (9.2-11.8); Monocytes Absolute Auto 0.65 K/mm3 (0.10-0.90); Monocytes Percent Auto 5.4 % (2.0-11.0); Neutrophils Absolute Auto 8.3 K/mm3 (1.7-7.2); Neutrophils Percent Auto 68.9 % (50.0-70.0); Platelet Count Result 334 K/mm3 (150-420); Red Blood Count 4.86 M/mm3 (4.20-5.40); Red Cell Distribution Width 12.7 % (11.6-14.4); White Blood Count 12.1 K/mm3 (4.8-10.8)
[2023-02-23 18:50] LABS: Appearance Urine Clear (Clear); Bilirubin Urine Negative (Negative); Blood Urine Negative (Negative); Color Urine Light Yellow (Yellow); Glucose Urine UA Negative (Negative); Ketones Urine Negative (Negative); Leukocyte Esterase Ur Negative LEU/UL (Negative); Nitrate Urine Negative (Negative); Protein Urine Negative (Negative); Urobilinogen Urine 0.2 mg/dL (0.2-1.0)
[2023-02-23 18:54] LABS: Add Urine Microscopic? NO
[2023-02-23 18:55] LABS: Pregnancy On Board Control Positive; Urine Pregnancy Test Negative
[2023-02-23 18:56] LABS: D Dimer 0.31 mg/L (0.19-0.50)
[2023-02-23 19:03] LABS: Lactic Acid Reflex 1.9 mmol/L (0.4-2.0)
[2023-02-23 19:05] LABS: Alanine Aminotransferase 46 U/L (14-59); Albumin Level 3.6 g/dL (3.4-5.0); Alkaline Phosphatase 98 U/L (46-116); Anion Gap 11 mmol/L (8-16); Aspartate Amino Transferase 16 U/L (15-37); Bilirubin,Total 0.4 mg/dL (0.00-1.00); Blood Urea Nitrogen 14 mg/dL (7-18); Calcium 9.3 mg/dL (8.5-10.1); Carbon Dioxide 26 mmol/L (21-32); Chloride 103 mmol/L (98-108); Estimated Glomerular Filt Rate > 60; Glucose 157 mg/dL (70-99); NT Pro B Type Natriuretic Pept 45 pg/mL (0-125); Osmolality Calculated 293 mOsm/kg (285-295); Potassium 3.6 mmol/L (3.5-5.1); Sodium 140 mmol/L (136-145); Total Protein 7.2 g/dL (6.4-8.2)
[2023-02-23 19:06] LABS: Troponin I 4.5 ng/L (0.00-60.4)
[2023-02-23] MEDS: methylPREDNISolone SOD SUCC 125 MG VIAL IM (19:20)
[2023-02-23 19:23] LABS: Influenza A QL RT-PCR Negative (Negative); Influenza B QL RT-PCR Negative (Negative); SARS-CoV-2 RNA PCR Negative (Negative)
[2023-02-23 19:24] LABS: RSV RNA, RT-PCR Negative (Negative)
[2023-02-23] MEDS: cefTRIAXone 1 GM, LIDOCAINE HCL 1% LOCAL INJ 2.1 ML IM (19:56)
[2023-02-23] MEDS: AZITHROMYCIN 250 MG TABLET 500 MG PO (19:57)
== END 2023-02-23 20:14 | disposition home or self-care (01) ==
PROVIDERS: Emergency Provider Internal Medicine Critical Care Medicine; PCP Family Medicine
DX: J45.41 Moderate persistent asthma with (acute) exacerbation (principal); J20.9 Acute bronchitis, unspecified; J18.9 Pneumonia, unspecified organism; F17.200 Nicotine dependence, unspecified, uncomplicated; Z20.822 Contact with and (suspected) exposure to COVID-19
CPT/HCPCS: 36415; 71045; 80053; 81003; 81025; 83605; 83880; 84484; 85025; 85380; 87637; 93005; 94640; 96372; 99284; A9270; J0696; J2930

== ENCOUNTER 2023-06-01 01:26 | Emergency (ER) | payer OTHER, SELFPAY ==
--- NOTE | ~2023-06-01 | XR_ITS ---
Left wrist Technique: PA, oblique, lateral, and ulnar deviation views were obtained. Clinical History: Pain Findings: No acute fracture or dislocation is seen. Osseous alignment is anatomic. Joint spaces are p reserved. Soft tissues are unremarkable. Impression: Unremarkable left wrist radiographs. Reviewed, dictated and finalized at location . MER CHEMIST Impression: Unremarkable left wrist radiographs.
[2023-06-01 01:30] VITALS: BP 154/92; PULSE 87; RESP 20; TEMP 36.6; O2SAT 100
--- NOTE | 2023-06-01 01:47 | ED.UPPEXIN ---
HPI - Extremity Injury (Upper) General Chief Complaint: Extremity Injury, Upper Stated Complaint: L Wrist Pain Time Seen by Provider: 06/01/23 01:47 History of Present Illness HPI narrative: Patient is a 28 year old female here with left wrist pain. Patient notes that about 2-2.5 weeks ago she was tickling her husbands belly and he accidentally kneed her left wrist into a coffee table. She notes it was initially quite red, bruised and swollen all of which have been improving. She has not seen anyone else for this injury. She notes that she has pain with supination of her wrist as well as abduction of her thumb. She feels a crunching sensation in her radial aspect of her wrist with these movements. She has been using Aleve and an over the counter wrist brace. Tonight she was attempting to make a cheesecake and had worsening symptoms prompting her to come into the ED for evaluation. No new trauma, no prior surgeries on this wrist. She is right hand dominant. Last Aleve dose was around 1999. Related Data Allergies Allergy/AdvReac Type Severity Reaction Status Date / Time No Known Allergies Allergy Verified 02/23/23 18:11 Review of Systems Review of Systems: All systems reviewed & are unremarkable except as noted in HPI and below PMFSH Past Medical History Medical History Asthma Bronchitis Chronic low back pain History of streptococcal sore throat Menorrhagia Morbid obesity Nicotine addiction Screening for cervical cancer Surgical History Surgical History Hx laparoscopic cholecystectomy Apr 2020 Family History Family History Father Family history of renal failure Grandparent Diabetes mellitus Social History Social History Smoking status: Current every day smoker Alcohol use details: denies alcohol use Substance use: never Substance use type: does not use Living arrangements: with family Occupation/Education: unemployed Exam Narrative: GENERAL: Well-appearing, well-nourished, and in no acute distress. HEAD: Normocephalic, atraumatic. EYES: PERRLA and EOMI. ENT: Mucous membranes moist. NECK: Supple. CHEST: No respiratory distress. HEART: Normal peripheral pulses. ABDOMEN: Soft, nontender, nondistended. EXTREMITIES: Normal range of motion. Tenderness in the snuff box. No obvious deformities. Normal ROM of wrist and hand. Strong radial pulse with good capillary refill and normal sensation throughout the hand. Tenderness with forced abduction of the thumb and axial loading. SKIN: Warm, dry, no rash. NEURO: No focal deficits. Alert and oriented x3. Course Course Emergency Course: Chart review performed. Patient here for wrist pain. Triage vitals normal. Patient seen and evaluated, non toxic appearing. Concern for subacute scaphoid fracture. Will do xray to evaluate for fracture and anticipate splint placement and orthopedic. XR reviewed by myself. No obvious displaced fractures noted. Given tylenol here for pain. Placed in thumb spica with normal PMS after splint placement. Will refer to Dr. Schmitz who is personalization specialist for orthopedic surgery tonight. The results of pertinent diagnostic studies and exam findings were discussed. The patient?s provisional diagnosis and plan of care were discussed with the patient and present family. The patient and/or present family expressed understanding of the diagnosis and plan. The nurse was instructed to provide written instructions and appropriate follow-up information. The patient understands their need and responsibility to obtain additional follow-up as instructed. The risks of medications administered and prescribed were discussed with the patient and family present. Vital Signs Vital signs: Vital Signs Temperature 97.8 F
[2023-06-01] MEDS: ACETAMINOPHEN 325 MG TABLET 650 MG PO (02:00)
[2023-06-01 02:15] VITALS: BP 140/88; PULSE 84; RESP 18; O2SAT 98
== END 2023-06-01 02:20 | disposition home or self-care (01) ==
PROVIDERS: Emergency Provider Student in an Organized Health Care Education/Training Program; PCP Family Medicine
DX: M25.532 Pain in left wrist (principal); J45.909 Unspecified asthma, uncomplicated; F17.200 Nicotine dependence, unspecified, uncomplicated
CPT/HCPCS: 29125; 73110; 99283; A9270; L3908

== ENCOUNTER 2023-10-20 23:38 | Emergency (ER) | payer OTHER, SELFPAY ==
--- NOTE | ~2023-10-20 | CT_ITS ---
CT of the Abdomen and Pelvis: Indication: Abdominal pain Technique: 2.5 mm axial scans were obtained through the abdomen and pelvis following intravenous adm inistration of 100 cc of Omnipaque 350. Dose reduction technique was used on this scan by utilizing a utomated exposure control and iterative reconstruction technique. The dose-length product (DLP) was 1 234.16 mGy-cm. Findings: Scans through the lung bases are unremarkable. The liver, spleen, pancreas, adrenals and kidneys are within normal limits. Cholecystectomy clips are present. No evidence of aortic aneurysm. No lymphadenopathy. No bowel obstruction or bowel wall thickening. There is no evidence to suggest acute appendicitis. Images through the pelvis were performed. Urinary bladder unremarkable. No pelvic mass seen. No ascit es. Impression: No significant abnormalities seen. Reviewed, dictated and finalized at [facility]. Impression: No significant abnormalities seen.
[2023-10-20 23:38] VITALS: BP 177/114; PULSE 100; RESP 20; TEMP 36.6; O2SAT 100
--- NOTE | 2023-10-20 23:49 | PC.NURSE ---
urine taken to lab
--- NOTE | 2023-10-21 00:01 | ED.ABDPAIN ---
HPI - Abdominal Pain General Chief Complaint: Abdominal Pain Stated Complaint: Abd Pain Time Seen by Provider: 10/20/23 23:59 Source: patient and family Mode of arrival: ambulatory Limitations: no limitations History of Present Illness HPI narrative: this is 19 presents started earlier this afternoon burning sensation in epigastric area localized to her right lower quadrant with no fever chills, patient does have nausea with episode of vomiting with diarrhea. There is no chest pain patient has a history of asthma is on albuterol has some mild wheezing. MD elicited complaint: abdominal pain Onset (ago): hour(s) Pain Consistency: constant Severity: severe Pain scale (0-10): 8 Quality: aching Radiation: RLQ and epigastric Related Data Allergies Allergy/AdvReac Type Severity Reaction Status Date / Time No Known Allergies Allergy Verified 02/23/23 18:11 Review of Systems Review of Systems: All systems reviewed & are unremarkable except as noted in HPI and below PMFSH Past Medical History Medical History Asthma Bronchitis Chronic low back pain History of streptococcal sore throat Menorrhagia Morbid obesity Nicotine addiction Screening for cervical cancer Surgical History Surgical History Hx laparoscopic cholecystectomy Apr 2020 Family History Family History Father Family history of renal failure Grandparent Diabetes mellitus Social History Social History Smoking status: Current every day smoker Alcohol use details: denies alcohol use Substance use: never Substance use type: does not use Living arrangements: with family Occupation/Education: unemployed Exam Const: General: no acute distress Nutritional Appearance: obese Orientation/consciousness: patient oriented x3 Limitations: no limitations HENMT: Head: normal to inspection Eyes: Conjunctivae: conjunctivae normal Neck: Neck: normal visual inspection, no lymphadenopathy and no meningeal signs Chest: Chest palpation & inspection: normal inspection of the chest Resp: Effort & Inspection: normal respiratory effort Auscultation: clear to auscultation bilaterally Cardio: Rate: regular rate Rhythm: regular rhythm GI: GI Palp: Yes Soft to palpation and Yes Tenderness to palpation present (GI) ( Epigastric and right lower quadrant) Auscultation: normal bowel sounds : General: Yes bladder normal to palpation Skin: General skin exam: normal color Neuro: General: patient oriented x3, moves all extremities, no meningeal signs and no focal motor deficits Course Course Emergency Course: CT scan without [place] [id number] otherwise the rest of blood work was within normal limits patient received IV fluids and IV Protonix and IV Zofran and pain medication Vital Signs Vital signs: Vital Signs Temperature 36.6 C 10/20/23 23:38 Pulse Rate 100 10/20/23 23:38 Respiratory Rate 10/20/23 23:38 Blood Pressure 177/114 H 10/20/23 23:38 Pulse Oximetry 100 10/20/23 23:38 Oxygen Delivery Room Air 10/20/23 23:38 Temperature 36.6 C 10/20/23 23:38 Pulse Rate 100 10/20/23 23:38 Respiratory Rate 10/20/23 23:38 Blood Pressure 177/114 H 10/20/23 23:38 Pulse Oximetry 100 10/20/23 23:38 Oxygen Delivery Room Air 10/20/23 23:38 Critical Care Time Critical Care Time Critical Care Time: No Discharge Plan Discharge Clinical Impression: Gastroenteritis Patient Disposition: Home, Self-Care Condition: Stable Instructions: Antibiotic Form, Gastroenteritis (ED) Additional Instructions: advised take medicine as prescribed can use Tylenol or Motrin for pain and follow up with primary in 1 week further evaluation and yasemin
[2023-10-21 00:11] LABS: Appearance Urine Clear (Clear); Bilirubin Urine Negative (Negative); Blood Urine Negative (Negative); Color Urine Yellow (Yellow); Glucose Urine UA Negative (Negative); Ketones Urine Negative (Negative); Leukocyte Esterase Ur Negative LEU/UL (Negative); Nitrate Urine Negative (Negative); Protein Urine Negative (Negative); Specific Grav Ur 1.025 (1.010-1.020); Urobilinogen Urine 0.2 mg/dL (0.2-1.0)
[2023-10-21 00:13] LABS: Pregnancy On Board Control Positive; Urine Pregnancy Test Negative
[2023-10-21 00:13] LABS: Add Urine Microscopic? NO
[2023-10-21] MEDS: SODIUM CHLORIDE 0.9% IV 1,000 ML 999 ML IV CONT (00:14)
[2023-10-21] MEDS: PANTOPRAZOLE SODIUM IV 40 MG VIAL IV PUSH (00:15)
[2023-10-21] MEDS: ONDANSETRON INJ 4 MG/2 ML VIAL IV PUSH (00:15)
[2023-10-21] MEDS: KETOROLAC 30 MG/ML VIAL (*BKC) IV PUSH (00:15)
[2023-10-21] MEDS: IPRATROPIUM 0.5 MG/ALBUTEROL SULFATE 2.5 MG AMPUL.NEB 3 ML INHALATION (00:15)
--- NOTE | 2023-10-21 00:15 | PC.NURSE ---
lab at the bedside
[2023-10-21 00:36] LABS: Basophils Absolute Auto 0.08 K/mm3 (0.00-0.10); Basophils Percent Auto 0.5 % (0.0-1.0); Eosinophils Absolute Auto 0.18 K/mm3 (0.02-0.50); Eosinophils Percent Auto 1.1 % (1.0-6.0); Hematocrit 43.8 % (35.0-49.0); Hemoglobin 15.3 g/dL (12.0-15.0); Immature Granulocyte Percent A 1.8 % (0.0-0.0); Lymphocytes Absolute Auto 1.92 K/mm3 (1.10-4.50); Lymphocytes Percent Auto 11.7 % (18.0-42.0); Mean Corpuscular HGB Conc 34.9 g/dL (32-36); Mean Corpuscular Hemoglobin 29.9 pg (27.0-31.0); Mean Corpuscular Volume 85.5 fL (78.0-102.0); Mean Platelet Volume 9.2 fl (9.2-11.8); Monocytes Absolute Auto 0.54 K/mm3 (0.10-0.90); Monocytes Percent Auto 3.3 % (2.0-11.0); Neutrophils Absolute Auto 13.34 K/mm3 (1.70-7.20); Neutrophils Percent Auto 81.6 % (50.0-70.0); Platelet Count Result 352 K/mm3 (150-420); Red Blood Count 5.12 M/mm3 (4.20-5.40); Red Cell Distribution Width 12.6 % (11.6-14.4); White Blood Count 16.4 K/mm3 (4.8-10.8)
[2023-10-21 00:41] LABS: Alanine Aminotransferase 49 U/L (14-59); Albumin Level 3.6 g/dL (3.4-5.0); Alkaline Phosphatase 87 U/L (46-116); Anion Gap 11 mmol/L (4-12); Aspartate Amino Transferase 23 U/L (15-37); Bilirubin,Total 0.8 mg/dL (0.00-1.00); Blood Urea Nitrogen 22 mg/dL (7-18); Calcium 8.9 mg/dL (8.5-10.1); Carbon Dioxide 25 mmol/L (21-32); Chloride 101 mmol/L (98-108); Estimated Glomerular Filt Rate > 60; Glucose 172 mg/dL (70-99); Lipase 27 U/L (16-77); Osmolality Calculated 291 mOsm/kg (285-295); Potassium 3.7 mmol/L (3.5-5.1); Sodium 137 mmol/L (136-145); Total Protein 7.3 g/dL (6.4-8.2)
[2023-10-21 00:43] LABS: Partial Thromboplastin Time 28.3 Sec (23.9-30.70); Prothrombin Time 10.8 Seconds (9.50-12.1)
--- NOTE | 2023-10-21 00:50 | PC.NURSE ---
patient transported to ct via wheel chair
[2023-10-21 00:51] LABS: Lactic Acid Reflex 1.2 mmol/L (0.4-2.0)
--- NOTE | 2023-10-21 01:21 | PC.NURSE ---
patient ambulated to the bathroom and back to room
[2023-10-21 02:12] VITALS: BP 153/93; PULSE 92; RESP 20; O2SAT 100
--- NOTE | 2023-10-21 02:12 | PC.NURSE ---
patient ambulated to the bathroom. currently waiting on ct report
--- NOTE | 2023-10-21 03:20 | PC.NURSE ---
ct fax report arrived. notified patient that provider would be in to see her soon. patient verbalized understanding
[2023-10-21 03:33] VITALS: BP 152/90; PULSE 88; RESP 18; O2SAT 100
== END 2023-10-21 03:33 | disposition home or self-care (01) ==
PROVIDERS: Emergency Provider Emergency Medicine; PCP Family Medicine
DX: K52.9 Noninfective gastroenteritis and colitis, unspecified (principal)
CPT/HCPCS: 36415; 74177; 80053; 81003; 81025; 83605; 83690; 85025; 85610; 85730; 96361; 96374; 96375; 99284; J1885; J2405; J2470; J7030; Q9967

== ENCOUNTER 2023-10-22 21:23 | Emergency (ER) | payer OTHER, SELFPAY ==
[2023-10-22] VITALS (20 sets, daily range): BP systolic 134–180; BP diastolic 73–124; PULSE 100–106; RESP 18; TEMP 36.4; O2SAT 92–97
--- NOTE | ~2023-10-22 | XR_ITS ---
EXAM: XR abdomen obstructive series DATE: 10/22/2023 21:54 HISTORY: UPPER ABD PAIN. RUQ PAIN. GALLBLADDER REMOVED IN 2019. . COMPARISON: None available. FINDINGS: Clear lung bases. Cholecystectomy clips. No free air. Paucity of small bowel gas, otherwis e normal bowel gas pattern. Enlarged liver. Enlarged spleen. No abnormal abdominal calcification. Reg ional bones and soft tissues normal for age. IMPRESSION: Paucity of small bowel gas which limits evaluation for small bowel obstruction. No radiog raphic evidence of large bowel obstruction. Hepatosplenomegaly. Reviewed, dictated and finalized at location K. IMPRESSION: Paucity of small bowel gas which limits evaluation for small bowel obstruction. No radiographic evidence of large bowel obstruction. Hepatosplenom egaly.
--- NOTE | ~2023-10-22 | CT_ITS ---
EXAMINATION: CT abdomen pelvis w con DATE: 10/22/2023 22:35 INDICATION: Right upper quadrant abdominal pain. Vomiting. TECHNIQUE: Computed tomography (CT) of the abdomen and pelvis was performed with 100 mL Omnipaque 350 intravenous contrast. Automated exposure control and iterative reconstruction technique were employe d. The dose-length product was 1356.30 mGy-cm. COMPARISON: CT abdomen and pelvis 10/21/2023 FINDINGS: The visualized portions of the lung bases demonstrate tree-in-bud opacities in right lower lobe. No pleural effusion. The heart size is normal. No pericardial effusion. The liver, spleen, panc reas, adrenal glands, and kidneys are normal. There are changes of cholecystectomy. There are no dila pablo loops of bowel. The appendix is normal. There are no pathologically enlarged lymph nodes. There i s no free intraperitoneal fluid. There is mild lumbar spondylosis. IMPRESSION: 1. Tree-in-bud opacities in right lung lower lobe, consistent with inflammation/infection. Reviewed, dictated and finalized at location E. IMPRESSION: 1. Tree-in-bud opacities in right lung lower lobe, consistent with inflammation /infection.
--- NOTE | 2023-10-22 21:29 | PC.NURSE ---
pts blood pressure is high due to pain. rn aware. will continue to monitor
[2023-10-22 21:55] LABS: Appearance Urine Clear (Clear); Bilirubin Urine Negative (Negative); Blood Urine Trace-intact (Negative); Color Urine Yellow (Yellow); Glucose Urine UA Negative (Negative); Ketones Urine Negative (Negative); Leukocyte Esterase Ur Negative LEU/UL (Negative); Nitrate Urine Negative (Negative); Protein Urine Negative (Negative); Specific Grav Ur 1.025 (1.010-1.020); Urobilinogen Urine 0.2 mg/dL (0.2-1.0)
[2023-10-22 22:00] LABS: Add Urine Microscopic? YES; Amorphous Sediment Urine Moderate; Squamous Epithelial Cell Urine Moderate /hpf (Few)
[2023-10-22] MEDS: KETOROLAC 30 MG/ML VIAL (*BKC) IV PUSH (22:14)
[2023-10-22] MEDS: SODIUM CHLORIDE 0.9% IV 1,000 ML 999 ML IV CONT (22:14)
[2023-10-22 22:15] LABS: Basophils Absolute Auto 0.09 K/mm3 (0.00-0.10); Basophils Percent Auto 0.6 % (0.0-1.0); Eosinophils Absolute Auto 0.72 K/mm3 (0.02-0.50); Eosinophils Percent Auto 4.6 % (1.0-6.0); Hematocrit 42.5 % (35.0-49.0); Hemoglobin 14.9 g/dL (12.0-15.0); Immature Granulocyte Absolute 0.18 K/mm3 (0.00-0.00); Immature Granulocyte Percent A 1.2 % (0.0-0.0); Lymphocytes Absolute Auto 3.96 K/mm3 (1.10-4.50); Lymphocytes Percent Auto 25.3 % (18.0-42.0); Mean Corpuscular HGB Conc 35.1 g/dL (32-36); Mean Corpuscular Hemoglobin 29.6 pg (27.0-31.0); Mean Corpuscular Volume 84.3 fL (78.0-102.0); Mean Platelet Volume 9.2 fl (9.2-11.8); Monocytes Absolute Auto 0.87 K/mm3 (0.10-0.90); Monocytes Percent Auto 5.6 % (2.0-11.0); Neutrophils Absolute Auto 9.83 K/mm3 (1.70-7.20); Neutrophils Percent Auto 62.7 % (50.0-70.0); Platelet Count Result 355 K/mm3 (150-420); Red Blood Count 5.04 M/mm3 (4.20-5.40); Red Cell Distribution Width 12.8 % (11.6-14.4); White Blood Count 15.7 K/mm3 (4.8-10.8)
[2023-10-22] MEDS: ONDANSETRON INJ 4 MG/2 ML VIAL IV PUSH (22:15)
[2023-10-22 22:24] LABS: Pregnancy On Board Control Positive; Urine Pregnancy Test Negative
[2023-10-22 22:32] LABS: Partial Thromboplastin Time 27.1 Sec (23.9-30.70); Prothrombin Time 10.5 Seconds (9.50-12.1)
[2023-10-22 22:33] LABS: Alanine Aminotransferase 46 U/L (14-59); Albumin Level 3.8 g/dL (3.4-5.0); Alkaline Phosphatase 90 U/L (46-116); Anion Gap 9 mmol/L (4-12); Aspartate Amino Transferase 34 U/L (15-37); Bilirubin,Total 0.8 mg/dL (0.00-1.00); Blood Urea Nitrogen 20 mg/dL (7-18); Calcium 9.4 mg/dL (8.5-10.1); Carbon Dioxide 27 mmol/L (21-32); Chloride 102 mmol/L (98-108); Estimated Glomerular Filt Rate > 60; Glucose 111 mg/dL (70-99); Lipase 17 U/L (16-77); Osmolality Calculated 289 mOsm/kg (285-295); Potassium 4.1 mmol/L (3.5-5.1); Sodium 138 mmol/L (136-145); Total Protein 7.8 g/dL (6.4-8.2)
[2023-10-22 22:38] LABS: Lactic Acid Reflex 1.2 mmol/L (0.4-2.0)
[2023-10-23] VITALS (9 sets, daily range): BP systolic 134–146; BP diastolic 74–98; O2SAT 93–99
--- NOTE | 2023-10-23 00:16 | ED.ABDPAIN ---
HPI - Abdominal Pain General Chief Complaint: Abdominal Pain Stated Complaint: abdominal pain Time Seen by Provider: 10/22/23 21:32 Source: patient Mode of arrival: ambulatory Limitations: no limitations History of Present Illness HPI narrative: this is a 28-year-old female that presents abdominal pain patient was seen approximately 2 days ago and had similar symptoms of crampy abdominal pain with nausea and episodes of with diarrhea CT scan was unremarkable. Patient returns with some abdominal discomfort or cramping diarrhea has resolved there is currently no nausea or vomiting no fever chills. Onset (ago): day(s) Pain Consistency: intermittent Location: diffuse Severity: mild Quality: cramping Related Data Allergies Allergy/AdvReac Type Severity Reaction Status Date / Time No Known Allergies Allergy Verified 02/23/23 18:11 Review of Systems Review of Systems: All systems reviewed & are unremarkable except as noted in HPI and below PMFSH Past Medical History Medical History Asthma Bronchitis Chronic low back pain History of streptococcal sore throat Menorrhagia Morbid obesity Nicotine addiction Screening for cervical cancer Surgical History Surgical History Hx laparoscopic cholecystectomy Apr 2020 Family History Family History Father Family history of renal failure Grandparent Diabetes mellitus Social History Social History Smoking status: Current every day smoker Alcohol use details: denies alcohol use Substance use: never Substance use type: does not use Living arrangements: with family Occupation/Education: unemployed Exam Const: General: healthy appearing and no acute distress Nutritional Appearance: well nourished Limitations: no limitations HENMT: Head: normal to inspection Eyes: Conjunctivae: conjunctivae normal Pupils: Equal, round and reactive pupils present Neck: Neck: normal visual inspection, no lymphadenopathy and no meningeal signs Chest: Chest palpation & inspection: normal inspection of the chest Resp: Effort & Inspection: normal respiratory effort Auscultation: clear to auscultation bilaterally Cardio: Rate: regular rate Rhythm: regular rhythm GI: GI Palp: Yes Soft to palpation and Yes Tenderness to palpation present (GI) Auscultation: normal bowel sounds : General: Yes bladder normal to palpation Back/Spine/Pelvis: Back: no CVA tenderness Skin: General skin exam: normal color Course Course Emergency Course: Patient received Toradol and after reassessment pain level has slightly improved patient had an elevated blood pressure and received 5mg IV metoprolol and blood pressure currently 145/86. Labs reviewed and within normal limits. Vital Signs Vital signs: Vital Signs Temperature 36.4 C 10/22/23 21:28 Pulse Rate 106 H 10/22/23 21:28 Respiratory Rate 18 10/22/23 21:28 Pulse Oximetry 97 10/22/23 21:28 Oxygen Delivery Room Air 10/22/23 21:28 Temperature 36.4 C 10/22/23 21:28 Pulse Rate 100 10/22/23 22:42 Respiratory Rate 18 10/22/23 22:42 Blood Pressure 145/86 H 10/22/23 22:42 Pulse Oximetry 95 10/22/23 22:42 Oxygen Delivery Room Air 10/22/23 22:42 MDM - Abdominal Pain Lab Data 10/22/23 21:38 10/22/23 21:38 Labs: Lab Results 10/22/23 10/22/23 10/22/23 Range/Units 21:38 22:08 22:11 WBC 15.7 H (4.8-10.8) K/mm3 RBC 5.04 (4.20-5.40) M/mm3 Hgb 14.9 (12.0-15.0) g/dL Hct 42.5 (35.0-49.0) % MCV 84.3 (78.0-102.0) fL MCH 29.6 (27.0-31.0) pg MCHC 35.1 (32-36) g/dL RDW 12.8 (11.6-14.4) % Plt Count 355 (150-420) K/mm3 MPV 9.2 (9.2-11.8) fl Immature Gran % (Auto) 1.2 H (0.0-0.0) %
== END 2023-10-23 01:19 | disposition home or self-care (01) ==
PROVIDERS: Emergency Provider Emergency Medicine; PCP Family Medicine
DX: K52.9 Noninfective gastroenteritis and colitis, unspecified (principal); F17.200 Nicotine dependence, unspecified, uncomplicated
CPT/HCPCS: 36415; 74019; 74177; 80053; 81001; 81025; 83605; 83690; 85025; 85610; 85730; 96361; 96374; 96375; 99284; J1885; J2405; J7030; Q9967

== ENCOUNTER 2024-05-19 16:55 | Emergency (ER) | payer OTHER, SELFPAY ==
--- NOTE | ~2024-05-19 | XR_ITS ---
EXAMINATION: XR chest 1V portable Exam Date/Time: 05/19/2024 17:15 STATION SUPERVISOR HISTORY: Cough/sob x1 month; worsening today Comparison: 02/23/2023. RESULT: Lines, tubes, and devices: None. Lungs and pleura: Clear. Cardiomediastinal silhouette: Stable. Other: No acute osseous or upper abdominal finding. IMPRESSION: No acute cardiopulmonary process. Reviewed, dictated and finalized at location K. ION SUPERVISOR
[2024-05-19 16:56] VITALS: BP 162/99; PULSE 118; RESP 20; TEMP 36.5; O2SAT 96
--- OUTSIDE RECORDS SUMMARY | 2024-05-19 16:57 | XMS_ITS | Clinical Summary ---
Author Organization [facility] Address [address] [place] [address]. [place], [place] [id number] [place] [id number] Care Team Providers Care Plug Stitcher Name Role Phone None, Provider MD Primary Care Provider Unavaila ble Allergies No known active allergies Medications levonorgestrel 20 MCG/24HR IUD Active Active Problems No known active problems Social History Tobacco Use Types Packs/Day Years Used Date Smoking Tobacco: Every Day Cigarettes Smokeless Tobacco: Never Alcohol Use Standard Drinks/Week Comments No 0 (1 standard drink = 0.6 oz pur e alcohol) AUDIT-C Answer Date Recorded Frequency of Alcohol Consumption Never 04/08/2019 Average Number of Drinks Not on file 019 Frequency of Binge Drinking Not on file 03/19 Comments Unknown Sex and Gender Information Value Date Recorded Sex Assigned at Not on file Legal Sex Female 5:48 PM CERTIFICATION ENGINEER Gender Identity Not on file Sexual Orientation Not on file Last Filed Vital Signs Vital Sign Reading Time Taken Comments Blood Pressure 119/88 04/08/2019 2:25 AM CERTIFICATION ENGINEER Pulse 87 04/08/2019 2:25 AM CERTIFICATION ENGINEER Temperature 36.3 ??C (97.4 ??F) 04/08/2019 2:25 AM CS T Respiratory Rate 20 04/08/2019 2:25 AM CERTIFICATION ENGINEER Oxygen Saturation 100% 04/08/2019 2:25 AM CERTIFICATION ENGINEER Inhaled Oxygen Concentration - - Weight - - Height - - Body Mass Index - - Plan of Treatment Health Maintenance Due Date Last Done Comments Cervical Cancer Screening Pa p Smear (Age 30 to 64) Every 3 Years 1994 Annual Physical 1997 Pneumococcal Vaccine: Pediat rics (0 to 5 Years) and At-Risk Patients (6 to 64 Years) (1 of 2 - PCV) 02/11/2000 Hepatitis C 02/11/2012 DTaP, Tdap and Td Vaccines ( 1 - Tdap) 2013 Hepatitis B Vaccines (1 of 3 - 19+ 3-dose series) 2013 COVID-19 Vaccine (1 - 2023-2 5 season) 2023 Influenza Adult (#1) 2024 Cervical Cancer Screening Pa p with HPV Testing (Age 30 to 64) Every 5 Years 02/11/2024 Cervical Cancer Screening with HPV 02/11/2024 HPV Vaccines Aged Out No longer eligi ble based on patient's age to complete this topic Meningococcal B Vaccine Aged Out No l onger eligible based on patient's age to complete this topic Meningococcal Vaccine Aged Out No vi cj eligible based on patient's age to complete this topic RSV Immunizations Under 20 Months Aged Out No longer eligible based on patient's age to complete this topic Insurance Care Teams Plug Stitcher Relationship Specialty Start Date End Date None, Provider, PCP - General 04/08/19
--- OUTSIDE RECORDS SUMMARY | 2024-05-19 16:57 | XMS_ITS | Referral Summary ---
Author Organization [facility] Address [address] [place] [address] Care Team Providers Care Corrective Therapy Aide Name Role Phone Dixie Plaza MD Primary Care Provider [phone] Source Comments [facility],non-owned Affiliates and Associated Physician Practices is [facility] [facility] organization consisting of ambulatory clinics and hospital sitesin [place], [place], [place] and [place]. This disclosure is being madepursuant to the Care Everywhere program and may not contain all information available regarding this patient. Last updated 18.[facility] Social History Tobacco Use Types Packs/Day Years Used Date Smoking Tobacco: Never Assessed Sex and Gender Information Value Date Recorded Sex Assigned at Not on file Gender Identity Not on file Sexual Orientation Not on file Plan of Treatment Not on file Care Teams Corrective Therapy Aide Relationship Specialty Start Date End Date Dixie Plaza MD [address] [place] [id number] PCP - General Internal Medicine 01/31/19
--- OUTSIDE RECORDS SUMMARY | 2024-05-19 16:57 | XMS_ITS | Encounter Summary ---
Author Organization [facility] Address [address] [place] [address]. [place], [place] [id number] [place] [id number] Care Team Providers Care Supervisor Sewing Department Name Role Phone None, Provider Primary Care Provider Unavaila ble Encounter Details Date Type Department Care Team (Late st Contact Info) Description 09/23/2018 Abstract SFL CONVERSION [address] [place] [address] , Generic Conversion, Social History Tobacco Use Types Packs/Day Years Used Date Smoking Tobacco: Never Assessed Comments Unknown Sex and Gender Information Value Date Recorded Sex Assigned at Not on file Legal Sex Female 5:48 PM BUSINESS UNIT DIRECTOR Gender Identity Not on file Sexual Orientation Not on file documented as of this encounter Plan of Treatment Not on file documented as of this encounter Visit Diagnoses Not on filedocumented in this encounter Care Teams Supervisor Sewing Department Relationship Specialty Start Date End Date None, Provider, PCP - General 04/08/19 documented as of this encounter
--- OUTSIDE RECORDS SUMMARY | 2024-05-19 16:57 | XMS_ITS | Clinical Summary ---
Author Organization [facility] Address [address] [place] [address] Phone Care Team Providers Care Medical Operations Supervisor Name Role Phone Iam Riley MD Primary Care Provider Dorian Cortez MD Unavailable [phone] Allergies No known active allergies Medications levonorgestrel (MIRENA) 20 MCG/24HR IUD by Intrauterine route. Active albuterol 108 (90 Base) MCG/ACT Aerosol Solution take 2 Puffs by inhalation every 4 hours as needed. Active FLUOXETINE HCL PO Take by mouth. Activ e cholestyramine (QUESTRAN) 4 GM/DOSE Powder Take 4 g by mouth 2 times daily. Active Active Problems Problem Noted Date Diagnosed Date GLENNA (obstructive sleep apnea) 10/23/2018 Morbid obesity 10/23/2018 Tobacco use disorder 10/23/2018 Centrilobular emphysema 10/23/2018 Family History Medical History Relation Name Comments Alcohol Abuse Father Diabetes Maternal Grandmother Hypertension Maternal Grandmother Stroke Maternal Grandmother Relation Name Status Comments Father Maternal Grandmother Social History Tobacco Use Types Packs/Day Years Used Date Smoking Tobacco: Every Day Cigarettes 1.5 9 Smokeless Tobacco: Never Alcohol Use Standard Drinks/Week Comments Not Currently 0 (1 standard drink = 0.6 oz pur e alcohol) social Sexually Active Control Partners Comments Yes Comments Unknown Sex and Gender Information Value Date Recorded Sex Assigned at Not on file Legal Sex Female 1:02 PM CDT Gender Identity Not on file Sexual Orientation Not on file Last Filed Vital Signs Vital Sign Reading Time Taken Comments Blood Pressure 108/70 12/07/2022 2:08 PM CDT Pulse 109 12/07/2022 2:08 PM CDT Temperature 36 ??C (96.8 ??F) 12/07/2022 2:08 PM CDT Respiratory Rate 18 12/07/2022 2:08 PM CDT Oxygen Saturation 95% 12/07/2022 2:08 PM CDT Inhaled Oxygen Concentration - - Weight 104.8 kg (231 lb) 12/07/2022 2:08 PM CDT Height 149.9 cm (4' 11 ) 12/07/2022 2:08 PM CDT Body Mass Index 46.66 12/07/2022 2:08 PM CDT Plan of Treatment Health Maintenance Due Date Last Done Comments Hepatitis C Virus (HCV) Screening 1994 TdaP Immunization 1994 Hepatitis B Immunization (1 of 3 - 19+ 3-dose series) 2013 Pneumococcal Immunization Combined (1 of 2 - PCV) 2013 Pap Smear 2015 Influenza Immunization (#1) 2023 12/05/2021, 03/12/2019 SARS-COV-2 Immunization (3 - season) 2023 02/03/2021, 01/06/2021 Cervical Cancer Screening (CCS) 02/11/2024 HPV/Cotest 02/11/2024 Respiratory Syncytial Virus (RSV) Immunization (Adult) (1 - 1-dose 75+ series) 2069 Meningococcal Immunization (ACWY) Aged Out No longer eligible b ased on patient's age to complete this topic Rotavirus Immunization Aged Out No lo nger eligible based on patient's age to complete this topic Insurance MEDICAID [employer] Care Teams Medical Operations Supervisor Relationship Specialty Start Date End Date Iam Riley MD [address] [place] [address] PCP - General Pediatrics 12/27/22 Dorian Cortez MD [address] [place] [id number] Consulting Physician Neurology 12/07/22
--- OUTSIDE RECORDS SUMMARY | 2024-05-19 16:57 | XMS_ITS | Referral Summary ---
Author Organization [facility] Address [address] [place] [address] Care Team Providers Care Linen Room Attendant Name Role Phone Dixie Plaza MD Primary Care Provider Allergies No known active allergies Medications FLUoxetine (PROzac) 40 mg capsule Take 1 capsule every day by oral route. 0 Active albuterol HFA (PROVENTIL HFA,VENTOLIN HFA,PROAIR HFA) 90 mcg/actuation inhaler INHALE 2 PUFFS BY MOUTH EVERY 6 TO 8 HOURS NEEDED Active topiramate (TOPAMAX) 25 mg tablet Take 1 tablet every day by oral route. 0 Active naproxen sodium 220 mg capsule Take by mouth A ctive omeprazole (PriLOSEC) 20 mg capsule Take 1 capsule (20 mg total) by mouth 2 (two) times a day for 14 days 28 capsule 1 Active Additional Information Patient not taking.Reported on 02/25/2022 tiZANidine (ZANAFLEX) 4 mg tablet Take 1 tablet every day by oral route at bedtime. 2 Active ibuprofen (ADVIL,MOTRIN) 600 mg tabletIndicatio ns:Pain Take 1 tablet (600 mg total) by mouth every 6 (six) hours as needed for pain 20 tablet 3 Active cyclobenzaprine (FLEXERIL) 5 mg tablet Take 1 tablet (5 mg total) by mouth 3 (three) times a day as needed for muscle spasms 30 tablet 3 Active Active Problems Problem Noted Date Diagnosed Date GERD without esophagitis 05/29/2020 Overview (06/10/2020): Added automatically from request for surgery [id number] Symptomatic cholelithiasis 04/17/2020 Overview (04/17/2020): Added automatically from request for surgery [id number] Assessment & Plan (05/13/2020 8:54 AM PIECE GOODS PACKER): No heavy lifting for 4 weeks. No submerging incisions for 4 weeks. Right upper quadrant pain 01/10/2020 Assessment & Plan (04/15/2020 9:05 AM PIECE GOODS PACKER): Patient with symptomatic cholelithiasis. We are trying to wait to see if he could do the gallbladder and sleeve at the same time but she does not feel like she can make it given the pain that she is having. We will therefore set her up for cholecystectomy. Assessment & Plan (03/11/2020 9:16 AM PIECE GOODS PACKER): Patient is set to have a right upper quadrant ultrasound tomorrow. We will follow up on those results and discuss with her at next follow-up options going forward Assessment & Plan (02/07/2020 9:03 AM CDT): I ordered an ultrasound last visit but does not seem that she has been call by Radiology to set this up. We will call them and figure out when this can be scheduled to evaluate for gallstones Assessment & Plan (01/10/2020 11:52 AM CDT): The patient sounds like she is having symptomatic cholelithiasis. I will 1st start by ordering a right upper quadrant ultrasound to evaluate this further. When we see her back at the 4 weeks follow-up with regards to her bariatric surgery planning will discuss further options with regards to her gallbladder going forward. Until then she should try a low-fat diet avoiding the trigger foods as much as possible Body mass index (BMI) of 40.0 to 44.9 in adult 0 01/10/2020 Assessment & Plan (06/10/2020 9:38 AM PIECE GOODS PACKER): She is set to see psych at the end of the month as well as undergo her EGD. We will then send all other information in for precertification. Her preoperative diet instructions have been given in the dietitian has gone over them. No further questions about surgery at this time. Assessment & Plan (05/13/2020 8:54 AM PIECE GOODS PACKER): The patient will continue to work on small frequent meals with a goal calorie intake of around 1600. She is set to see psych in early June. We will set her up for an EGD in between this time. Once that has been completed we will then pre certify her and get her ready for surgery. Assessment & Plan (04/15/2020 9:06 AM PIECE GOODS PACKER): She has done extremely well contributing this to really watching her portion size. She will continue to do small frequent meals. She has already seen the dietitian. She needs to see psych. We will see her back in 4 weeks. Assessment & Plan (03/11/2020 9:17 AM PIECE GOODS PACKER): The patient has done well having lost little over lb since last visit. She states she has really been trying cutting out all soda from her diet. She was going to the gym but now due to the increase in COVID -19 cases she has had to cut back which is understandable. She will continue to do as much as she can at home from a cardiovascular exercise standpoint. Continue small frequent meals. We will see her back in 4 weeks to reassess. Assessment & Plan (02/07/2020 9:04 AM CDT): Patient will continue with small frequent meals and avoiding soda if possible. She has done well with working outside and doing the hiking trails. She will continue to try and attempt cardiovascular exercise 3 times a week of 30 minutes. We will have her see the dietitian as well as psych in further preparation for surgery. Follow back up in 1 month. Assessment & Plan (01/10/2020 11:54 AM CDT): Given her morbid obesity the patient would be a good candidate for weight loss surgery. She is currently somewhat hesitant as she is fearful about dying on the operating table. We have gone over risks and benefits of the surgery and compared sleeve gastrectomy verses Rosy-en-Y. We have discussed risks of anastomotic leak, development of reflux as well as blood clots. We have also gone over dietary changes shooting for a goal calorie intake of around 1500 a day. We have discussed doing this in small frequent meals spread out throughout the day. She wants to try dietary changes on her own before entertaining weight loss surgery. Once the ultrasound has been completed we will see her back in January and discuss further proceeding with weight loss surgery versus just addressing the gallbladder. Greater than 15 minutes was spent in counseling the patient with regards to her diet and exercise for her morbid obesity. Resolved Problems Problem Noted Date Diagnosed Date Resolved Date GERD without esophagitis 05/29/2020 Overview (05/29/2020): Added automatically from request for surgery [id number] Social History Tobacco Use Types Packs/Day Years Used Date Smoking Tobacco: Every Day Cigarettes 0.5 11 Smokeless Tobacco: Never Tobacco Cessation:Ready to Q uit: Not Asked; Counseling Given: Not Answered Alcohol Use Standard Drinks/Week Comments Yes 0 (1 standard drink = 0.6 oz pur e alcohol) rarely AUDIT-C Answer Date Recorded Q1: How often do you have a drink containing alc ohol? Monthly or less 06/17/2020 Average Number of Drinks Not on file Frequency of Binge Drinking Not on file 05/2020 Personal Safety Answer Date Recorded Have you ever been in or are you currently in a harmful physical or emotional relationship or is someone making you feel afraid or unsafe? Denies 02/01/2023 Comments No Sex and Gender Information Value Date Recorded Sex Assigned at Not on file Legal Sex Female 9:01 AM PIECE GOODS PACKER Gender Identity Not on file Sexual Orientation Not on file Last Filed Vital Signs Vital Sign Reading Time Taken Comments Blood Pressure 147/92 02/01/2023 12:00 PM CDT Pulse 93 02/01/2023 12:00 PM CDT Temperature 36.9 ??C (98.5 ??F) 02/01/2023 10:18 AM C DT Respiratory Rate 16 02/01/2023 10:18 AM CDT Oxygen Saturation 91% 02/01/2023 12:00 PM CDT Inhaled Oxygen Concentration - - Weight 102.1 kg (225 lb) 02/01/2023 10:18 AM CDT Height 149.9 cm (4' 11 ) 02/01/2023 10:18 AM CDT Body Mass Index 45.44 02/01/2023 10:18 AM CDT Plan of Treatment Not on file Insurance [address] [address] [facility] Advance Directives For more information, please contact: [phone] * Full Code (Latest Code Status on File) Date Activated Date Inactivated Comments 06/17/2020 12:07 PM 06/17/2020 5:48 PM * Full Code Date Activated Date Inactivated Comments 06/17/2020 12:07 PM 06/17/2020 12:07 PM Care Teams Linen Room Attendant Relationship Specialty Start Date End Date Dixie Plaza MD PCP - General Internal Medicine 10/26/19
--- OUTSIDE RECORDS SUMMARY | 2024-05-19 16:57 | XMS_ITS | Patient Health Summary ---
Author Organization [facility] Address [address] [place] [address] Care Team Providers Care Puppet Developer Name Role Phone Dixie Plaza MD Primary Care Provider [phone] Note from [facility],non-owned Affiliates and Associated Physician Practices is amultiple site organization consisting of ambulatory clinics and hospital sitesin [place], [place], [place] and [place]. This disclosure is being madepursuant to the Care Everywhere program and may not contain all information available regarding this patient. Last updated 18.[facility] Social History Tobacco Use Types Packs/Day Years Used Date Smoking Tobacco: Never Assessed Sex and Gender Information Value Date Recorded Sex Assigned at Not on file Gender Identity Not on file Sexual Orientation Not on file Care Teams Puppet Developer Relationship Specialty Start Date End Date Dixie Plaza MD [address] [place] [phone] PCP - General Internal Medicine 01/31/19
--- OUTSIDE RECORDS SUMMARY | 2024-05-19 16:57 | XMS_ITS | Continuity of Care Document ---
Demographics Address [address] [place] [address] Work Phone Home Phone Preferred Language und Marital Status Never Jainism Affiliation Sabianism Race White Ethnic Group Not or Lati no Author Organization [facility] Address [address] [place] [address] Phone Care Team Providers Care Dental Laboratory Worker Name Role Phone SHARIF LUONG MD Unavailable Unavailable Allergies, Adverse Reactions, Alerts Substance Reaction Status Criticality No Known Allergies Active No Inform ation Procedures Procedure Date OFFICE/OUTPATIENT VISIT, NEW OFFICE/OUTPATIENT VISIT, NEW Advance Directives Directive Yes / No Effective Date File Name No Information Encounters Encounter Description Practice Location Reason(s) For Visit Diagnoses Date Provider Providers Copied on Encounter [facility], [facility] [place], [address], tel: [phone] [facility] No Information [address]. [facility] [place], [address], . tel: [phone] Referring Provider: SHARIF Staton, [facility] [place], [address]. tel:[phone] OFFICE/OUTPA TIENT VISIT, [facility], [address] [place], [address], tel: [phone] [facility] infertility (chief complaint)ab normal bleeding (chief complaint)co ntinue (chief complaint) Secondary oligomenorrheaFem go infertility associated with anovulation [address]. [address] [place], [address], [place]. tel: [phone] Referring Provider: SHARIF Staton, [address], [place], [address]. tel:[phone] OFFICE/OUTPA TIENT VISIT, [facility], [address], [place], [address], [place] tel:[phone] [facility] Bronchitis, Acute 5 Wendy Young. [address] [place], [id number] , [place]. tel:[phone] Referring Provider: Hannah Nam, [address] [place], [address] . tel:[phone] Family History Family Member Type Diagnosis Age At Onset Paternal grandfather Problem (finding) CVA Maternal grandmother Problem (finding) Diabetes mellit Father Problem (finding) alcoholism Father Problem (finding) Cirrohsis Maternal grandmother Problem (finding) [place], CAD Mother Problem (finding) Bipolar Maternal grandmother Problem (finding) hypertension Mother Problem (finding) Anxiety Paternal grandfather Problem (finding) Diabetes mellit Father Problem (finding) hypertension Payers Payer name Insurance type Covered constitution party ID Authoriza tion(s) No Information Social [...] patient had a cycle sometime in December.. continue Patient reports this has been her [...] cleared). Patient was seeing Dr. Campos in [place] and Dr. Tovar in [place].Discussed with patient and partner obtaining records before [...] for about 16 months without successful . Functional Status Date Functional Assessmen t No [...]
--- OUTSIDE RECORDS SUMMARY | 2024-05-19 16:57 | XMS_ITS | Data Portability ---
Author Organization W - [facility], [facility] Address [address] [place] [address] Care Team Providers Care Medical Biller Name Role Phone CM LU TYSON Assessment No assessment recorded. Plan of Treatment Reminders Order Date Submit Date Provider Last Modified By Organization Details Last Modified Time Details Appointments None recorded. Lab CT + NG DNA, PCR, unspecifie d specimen 2015 016 DBA_PATCH_ [id number] [facility], [place], [address], 6 04:05:17 RPR (rapid plasma reagin), serum 2015 016 DBA_PATCH_ [id number] [facility], [place], [address], 6 04:05:17 hepatitis C Ab, serum 2015 016 DBA_PATCH_ [id number] [facility], [place], [address], 6 04:05:11 hsv (1+2) igm Ab, serum 2015 016 DBA_PATCH_ [id number] [facility], [place], [address], 6 04:05:06 hepatitis B surface Ab, qualitativ e, serum 2015 016 DBA_PATCH_ [id number] [facility], [place], [address], 6 04:04:56 HIV 1+2 AB + HIV 1 p24 Ag, qualitativ e immunoassa y, serum 2015 016 DBA_PATCH_ [id number] [facility], [address] [place] [place], [address], 6 04:05:15 Referral None recorded. Procedures None recorded. Surgeries None recorded. Imaging None recorded. Medication Orders ProAir HFA 90 mcg/actuat ion aerosol inhaler [address] [facility]acy #[id number], [address] [place] [address], [address], 4 08:13:39 Zithromax Z-Inocente 250 mg tablet [address]/Pharmacy #7649, [address] [place] [address], [address], 5 16:29:19 Tessalon Perles 100 mg capsule [address]/Pharmacy #7649, [address] [place] [address], [address], 6 14:28:36 ProAir HFA 90 mcg/actuat ion aerosol inhaler 2014 015 [facility]/Pharmacy #7649, [address] [place] [address], [address], 5 16:52:50 Medrol (Inocente) 4 mg tablets in a dose pack [address]/Pharmacy #7649, [address] [place] [address], [address], 6 14:28:26 Guaiatussi n AC 10 mg-100 mg/5 mL oral liquid [address]/Pharmacy #7649, [address] [place] [address], [address], 6 14:28:21 diclofenac potassium 50 mg tablet 2015 016 DBA_PATCH_ [id number] [facility], [address] [place] [place], [address], 6 04:05:59 Patient TargetsNo targets recorded. Patient Instructions Encounter Date Encounter Id Patient Instructions Last Modified By Organization Details Last Modified Time 12/25/2014 [id number] Discussed viral nature & course of illness with patient Supportive care Cool mist humidifier qhs Rtc if no improvement within 7-10 days, sooner if worsening occurs.? ? ? [email or web address] Not available 12/25/2014 16:52:45 10/06/2015 [id number] program - program one pager DBA_PATCH_ [id number] Not available 04/03/2016 04:04:59 Reason for Referral None Reported. Results Created Date Observation Date Name Description Value Unit Range Abnormal Flag Note LastModifiedBy Organization Detail LastModifiedTime 09/14/19 14 09/13/2013 HCG quali tativ e, urine HCG negati ve Not Available In-Office Order Internal Use Only DO Not Attach Compendium DO Not Attach Compendium, Do Not Delete/merge, [id number] 09/13/2013 10:23:29 09/14/19 14 09/13/2013 urina lysis , dipst ick Leukocytes Negati ve Not Available In-Office Order Internal Use Only DO Not Attach Compendium DO Not Attach Compendium, Do Not Delete/merge, 09/13/2013 10:23:10 09/14/19 14 09/13/2013 urina lysis , dipst ick Nitrite negati ve Not Available In-Office Order Internal Use Only DO Not Attach Compendium DO Not Attach Compendium, Do Not Delete/merge, 09/13/2013 10:23:10 09/14/19 14 09/13/2013 urina lysis , dipst ick Urobilinogen .2 Not Available In-Of fice Order Internal Use Only DO Not Attach Compendium DO Not Attach Compendium, Do Not Delete/merge, 09/13/2013 10:23:10 09/14/19 14 09/13/2013 urina lysis , dipst ick Protein Trace Not Available In-Office Order Internal Use Only DO Not Attach Compendium DO Not Attach Compendium, Do Not Delete/merge, 09/13/2013 10:23:10 09/14/19 14 09/13/2013 urina lysis , dipst ick pH 5.0 Not Available In-Office Order Internal Use Only DO Not Attach Compendium DO Not Attach Compendium, Do Not Delete/merge, 09/13/2013 10:23:10 09/14/19 14 09/13/2013 urina lysis , dipst ick Blood Negati ve Not Available In-Office Order Internal Use Only DO Not Attach Compendium DO Not Attach Compendium, Do Not Delete/merge, 09/13/2013 10:23:10 09/14/19 14 09/13/2013 urina lysis , dipst ick Specific [place] 1.030 Not Available In-Off ice Order Internal Use Only DO Not Attach Compendium DO Not Attach Compendium, Do Not Delete/merge, 09/13/2013 10:23:10 09/14/19 14 09/13/2013 urina lysis , dipst ick Ketone Negati ve Not Available In-Office Order Internal Use Only DO Not Attach Compendium DO Not Attach Compendium, Do Not Delete/merge, 09/13/2013 10:23:10 09/14/19 14 09/13/2013 urina lysis , dipst ick Bilirubin Negati ve Not Available In-Office Order Internal Use Only DO Not Attach Compendium DO Not Attach Compendium, Do Not Delete/merge, 09/13/2013 10:23:10 09/14/19 14 09/13/2013 urina lysis , dipst ick Glucose Negati ve Not Available In-Office Order Internal Use Only DO Not Attach Compendium DO Not Attach Compendium, Do Not Delete/merge, 09/13/2013 10:23:10 09/14/19 14 09/14/2013 CBC w/dif f WBC 12.1 x10e3 /uL 3.4-10 .8 high Not Available [facility] ([facility]) [address] [facility], [place], [address], 09/14/2013 06:58:22 09/14/19 14 09/14/2013 CBC w/dif f RBC 4.65 x10e6 /uL 3.77-5 .28 Not Available [facility] ([facility]) [address] [facility], [place], [address], 09/14/2013 06:58:22 09/14/19 14 09/14/2013 CBC w/dif f hemoglobin 13.9 g/dL 11.1-1 5.9 Not Available [facility] ([facility]) [address] [place], [address], 09/14/2013 06:58:22 09/14/19 14 09/14/2013 CBC w/dif f hematocrit 41.8 % 34.0-4 6.6 Not Available [facility] ([facility]) [address] [place], [address], 09/14/2013 06:58:22 09/14/19 14 09/14/2013 CBC w/dif f MCV 90 fL 79-97 Not Available [facility] ([facility]) [address] [place], [address], 09/14/2013 06:58:22 09/14/19 14 09/14/2013 CBC w/dif f MCH 29.9 pg 26.6-3 3.0 Not Available [facility] ([facility]) [address] [place], [address], 09/14/2013 06:58:22 09/14/19 14 09/14/2013 CBC w/dif f MCHC 33.3 g/dL 31.5-3 5.7 Not Available [facility] ([facility]) [address] [place], [address], 09/14/2013 06:58:22 09/14/19 14 09/14/2013 CBC w/dif f RDW 14.3 % 12.3-1 5.4 Not Available [facility] ([facility]) [address] [facility], [place], [address], 09/14/2013 06:58:22 09/14/19 14 09/14/2013 CBC w/dif f platelets 355 x10e3 /uL 155-37 9 Not Available [facility] ([facility]) [address] [facility], [place], [address], 09/14/2013 06:58:22 09/14/19 14 09/14/2013 CBC w/dif f neutrophils 61 % 40-74 Not Available [facility] ([facility]) [address] [facility], [place], [address], 09/14/2013 06:58:22 09/14/19 14 09/14/2013 CBC w/dif f lymphs 27 % 14-46 Not Available [facility] ([facility]) [address] [facility], [place], [address], 09/14/2013 06:58:22 09/14/19 14 09/14/2013 CBC w/dif f monocytes 8 % 4-12 Not Available [facility] ([facility]) [address] [facility], [place], [address], 09/14/2013 06:58:22 09/14/19 14 09/14/2013 CBC w/dif f eos 4 % 0-5 Not Available [facility] ([facility]) [address] [facility], [place], [address], 09/14/2013 06:58:22 09/14/19 14 09/14/2013 CBC w/dif f basos 0 % 0-3 Not Available [facility] ([facility]) [address] [place], [address], 09/14/2013 06:58:22 09/14/19 14 09/14/2013 CBC w/dif f neutrophils (absolute) 7.4 x10e3 /uL 1.4-7. 0 high Not Available [facility] ([facility]) [address] [facility], [place], [address], 09/14/2013 06:58:22 09/14/19 14 09/14/2013 CBC w/dif f lymphs (absolute) 3.2 x10e3 /uL 0.7-3. 1 high Not Available [facility] ([facility]) [address] [facility], [place], [address], 09/14/2013 06:58:22 09/14/19 14 09/14/2013 CBC w/dif f monocytes(ab solute) 0.9 x10e3 /uL 0.1-0. 9 Not Available [facility] ([facility]) [address] [facility], [place], [address], 09/14/2013 06:58:22 09/14/19 14 09/14/2013 CBC w/dif f eos (absolute) 0.5 x10e3 /uL 0.0-0. 4 high Not Available [facility] ([facility]) [address] [facility], [place], [address], 09/14/2013 06:58:22 09/14/19 14 09/14/2013 CBC w/dif f baso (absolute) 0.0 x10e3 /uL 0.0-0. 2 Not Available [facility] ([facility]) [address] [facility], [place], [address], 09/14/2013 06:58:22 09/14/19 14 09/14/2013 CBC w/dif f immature granulocytes 0 % 0-2 Not Available [facility] ([facility]) [address] [facility], [place], [address], 09/14/2013 06:58:22 09/14/19 14 09/14/2013 CBC w/dif f immature grans (abs) 0.0 x10e3 /uL 0.0-0. 1 Not Available [facility] ([facility]) [address] [facility], [place], [address], 09/14/2013 06:58:22 09/14/19 14 09/14/2013 comp. metab olic panel (12) glucose, serum 97 mg/dL 65-99 Not Available [facility] ([facility]) [address] [place], [address], 09/14/2013 06:58:22 09/14/19 14 09/14/2013 comp. metab olic panel (12) BUN 14 mg/dL 6-20 Not Available [facility] ([facility]) [address] [place], [address], 09/14/2013 06:58:22 09/14/19 14 09/14/2013 comp. metab olic panel (12) creatinine, serum 0.78 mg/dL 0.57-1 .00 Not Available [facility] ([facility]) [address] [place], [address], 09/14/2013 06:58:22 09/14/19 14 09/14/2013 comp. metab olic panel (12) eGFR if nonafricn AM 111 mL/mi n/1.7 3 >59 Not Available [facility] ([facility]) [address] [place], [address], 09/14/2013 06:58:22 09/14/19 14 09/14/2013 comp. metab olic panel (12) eGFR if africn AM 127 mL/mi n/1.7 3 >59 Not Available [facility] ([facility]) [address] [place], [address], 09/14/2013 06:58:22 09/14/19 14 09/14/2013 comp. metab olic panel (12) BUN/creatini ne ratio 18 8-20 Not Available [facility] ([facility]) [address] [place], [address], 09/14/2013 06:58:22 09/14/19 14 09/14/2013 comp. metab olic panel (12) sodium, serum 144 mmol/ L 134-14 4 Not Available [facility] ([facility]) [address] [facility] [place], [address], 09/14/2013 06:58:22 09/14/19 14 09/14/2013 comp. metab olic panel (12) potassium, serum 4.7 mmol/ L 3.5-5. 2 Not Available [facility] ([facility]) [address] [facility] [place], [address], 09/14/2013 06:58:22 09/14/19 14 09/14/2013 comp. metab olic panel (12) chloride, serum 103 mmol/ L 97-108 Not Available [facility] ([facility]) [address] [facility] [place], [address], 09/14/2013 06:58:22 09/14/19 14 09/14/2013 comp. metab olic panel (12) calcium, serum 10.1 mg/dL 8.7-10 .2 Not Available [facility] ([facility]) [address] [facility] [place], [address], 09/14/2013 06:58:22 09/14/19 14 09/14/2013 comp. metab olic panel (12) protein, total, serum 7.4 g/dL 6.0-8. 5 Not Available [facility] ([facility]) [address] [place], [address], 09/14/2013 06:58:22 09/14/19 14 09/14/2013 comp. metab olic panel (12) albumin, serum 4.5 g/dL 3.5-5. 5 Not Available [facility] ([facility]) [address] [facility] [place], [address], 09/14/2013 06:58:22 09/14/19 14 09/14/2013 comp. metab olic panel (12) globulin, total 2.9 g/dL 1.5-4. 5 Not Available [facility] ([facility]) [address] [facility] [place], [address], 09/14/2013 06:58:22 09/14/19 14 09/14/2013 comp. metab olic panel (12) A/G ratio 1.6 1.1-2. 5 Not Available [facility] ([facility]) [address] [facility] [place], [address], 09/14/2013 06:58:22 09/14/19 14 09/14/2013 comp. metab olic panel (12) bilirubin, total 0.2 mg/dL 0.0-1. 2 Not Available [facility] ([facility]) [address] [place], [address], 09/14/2013 06:58:22 09/14/19 14 09/14/2013 comp. metab olic panel (12) alkaline phosphatase, S 92 IU/L 39-117 Not Available [facility] ([facility]) [address] [place], [address], 09/14/2013 06:58:22 09/14/19 14 09/14/2013 comp. metab olic panel (12) AST (SGOT) 12 IU/L 0-40 Not Available [facility] ([facility]) [address] [place], [address], 09/14/2013 06:58:22 10/06/19 16 10/06/2015 CT + NG DNA, PCR, unspe cifie d speci men please note: COMMEN T ACCEP TABLE SPECI MENS FOR THIS TEST ARE MALE URETH RAL SWAB, ENDOC ERVIC AL SWAB AND LIQUI D BASED PAP SPECI MENS, VAGIN AL SWABS IN APTIM A TRANS PORTS AND FIRST VOID URINE . SEE BRUNO KINCAID OF SERVI DENNISE FOR TEST NUMBE R FOR RECTA L AND PHARY NGEAL SPECI MENS. Not Available [facility] ([facility]) [address] [place], [address], 10/21/2015 15:07:03 10/06/19 16 10/07/2015 CT + NG DNA, PCR, unspe cifie d speci men chlamydia trachomatis, JESSE NEGATI VE negati ve Not Available [facility] ([facility]) [address] [place], [address], 10/21/2015 15:07:03 10/06/19 16 10/07/2015 CT + NG DNA, PCR, unspe cifie d speci men neisseria gonorrhoeae, JESSE NEGATI VE negati ve Not Available [facility] ([facility]) [address] [place], [address], 10/21/2015 15:07:03 10/06/19 16 10/06/2015 hepat itis C Ab, serum PCR amplificatio n + detection COMMEN T PERFO RMED Not Available [facility] ([facility]) [address] [place], [address], 10/21/2015 15:07:03 10/06/19 16 10/21/2015 hepat itis C Ab, serum ngi HCV ultraqual TNP REPEA T ROBBIE SIS OF THIS SPECI MEN IS REQUI RED TO ESTAB GODFREY VALID RESUL TS. HOWEV ER, THE QUANT ITY OF SPECI MEN DUTCHAI BRITTA IS INSUF FICIE NT TO REPEA T. PLEAS E RESUB NIESHA SAMPL E OR CONTA CT NGI CLIEN T SERVI DENNISE AT [phone] TO DISCU SS ALTER EMERITA TESTI NG OPTIO NS. PCR ASSAY PERFO RMED USING NATIO NAL RYLIE ICS INSTI TUTE' S VALID ATED, PROPR IETAR Y METHO DOLOG Y. Not Available [facility] ([facility]) [address] [place], [address], 10/21/2015 15:07:03 10/06/19 16 10/08/2015 hsv (1+2) igm Ab, serum hsv 1 IgM antibodies <1:10 titer <1:10 Not Available [facility] ([facility]) [address] [place], [address], 10/21/2015 15:07:04 10/06/19 16 10/08/2015 hsv (1+2) igm Ab, serum hsv 2 IgM antibodies <1:10 titer <1:10 HSV 1 AND HSV 2 SHARE MANY CROSS -REAC TING ANTIG ENS. ELEVA FLORENCIO TITER S TO BOTH HSV 1 AND HSV 2 MAY REPRE SENT CROSS REACT ANNABELLA HSV ANTIB ODIES RATHE R THAN EXPOS URE TO BOTH HSV 1 AND HSV 2. RESUL TS FOR THIS TEST ARE FOR RESEA RCH PURPO SES ONLY BY THE ASSAY 'S MANUF ACTUR ER. THE PERFO RMANC E MCKAYLA CTERI STICS OF THIS PRODU CT HAVE NOT BEEN ESTAB LISHE D. RESUL TS SHOUL D NOT BE USED A DIAGN OSTIC PROCE DURE WITHO UT CONFI RMATI ON OF THE DIAGN OSIS BY [facility] MEDIC ALLY ESTAB LISHE D DIAGN OSTIC PRODU CT OR PROCE DURE. Not Available [facility] ([facility]) [address] [facility], [place], [address], 10/21/2015 15:07:04 10/06/19 16 10/07/2015 hepat itis B surfa ce Ab, quali tativ e, serum hep B surface Ab, qual NON REACTI VE NON REACT ANNABELLA: INCON SISTE NT WITH IMMUN ITY, LESS THAN 10 MIU/M L REACT ANNABELLA: CONSI STENT WITH IMMUN ITY, GREAT ER THAN 9.9 MIU/M L Not Available [facility] ([facility]) [address] [facility], [place], [address], 10/21/2015 15:07:04 10/06/19 16 10/07/2015 RPR (rapi d plasm a reagi n), serum RPR NON REACTI VE non reacti ve Not Available [facility] ([facility]) [address] [facility], [place], [address], 10/21/2015 15:07:05 10/06/19 16 10/07/2015 HIV 1+2 AB + HIV 1 p24 Ag, quali tativ e immun oassa y, serum HIV screen 4TH generation wrfx NON REACTI VE non reacti ve Not Available [facility] ([facility]) [address], [place], [address], 10/21/2015 15:07:05 09/14/19 14 09/13/2013 x-ray , lumba r spine No observ ation record ed. [place] [address], [place], [address] 09/14/2013 10:50:14 Result Notes None recorded. Problems Name Problem SNOMED Code Status Onset Date Resolution Date Notes Provider Name and Address Organization Details Recorded Time Environmental allergy 283112044 Active TEN Alcantara [address] [place], [address], [facility] 3 09:01:09 Asthma 218124720 Active Dilip Palencia PA-C [address] [place] [address], [address], [facility] 5 16:52:45 Obesity 670269330 Active Dilip Palencia PA-C [address] [place] [address], [address], [facility] 5 16:52:45 Depressive disorder 76615075 Active Dilip Palencia PA-C [address] [place] [address], [address], [facility] 5 16:52:45 Tobacco dependence syndrome 33086377 Active Dilip Palencia PA-C [address] [place] [address], [address], [facility] 5 16:52:45 Problem Notes None recorded. Procedures Surgical History None recorded. Imaging Results Imaging Date Name Status LastModified by Organiz [facility] Details LastModified Time 09/13/2013 x-ray, lumbar spine completed [address], [place], [address] 09/14/2013 10:50:14 Procedure Notes None recorded. Medical Equipment None Reported. Allergies No known drug allergies Medications Name Sig Start Date Stop Date Status Note LastModified by Organization Details LastModified Time medroxyprog esterone 10 mg tablet active Not Available Not Available No t Available promethazin e-DM 6.25 mg-15 mg/5 mL oral syrup one tsp po every 4 hrs prn for cough 10/05 completed Not Available Not Available Not Available azithromyci n 250 mg tablet TAKE 2 TABLETS (500 MG) BY ORAL ROUTE ONCE DAILY FOR 1 DAY THEN 1 TABLET (250 MG) BY ORAL ROUTE ONCE DAILY FOR 4 DAYS active Not Available Not Available No t Available Medrol (Inocente) 4 mg tablets in a dose pack as directed per pack instructi ons 10/05 completed Not Available Not Available Not Available prednisone 20 mg tablet one tablet PO BID for 5 days active Not Available Not Available No t Available sulfamethox azole 800 mg-trimetho prim 160 mg tablet active Not Available Not Available Not Available lamotrigine 25 mg tablet active Not Available Not Available Not Available Tessalon Perles 100 mg capsule Take 1 capsule 3 times a day by oral route as needed for cough.. 10/05 completed Not Available Not Available Not Available Guaiatussin AC 10 mg-100 mg/5 mL oral liquid Take 10 mL every 4 hours by oral route. 10/05 completed Not Available Not Available Not Available progesteron e micronized 200 mg capsule active Not Available Not Available Not Available diclofenac potassium 50 mg tablet Take 1 tablet every 8 hours by oral route as needed. 2015 active Not Available Not Available Not Avai lable naproxen 500 mg tablet TAKE ONE PO BID PRN PAIN. active Not Available Not Available No t Available Abilify 10 mg tablet Take 1 tablet every day by oral route. 11/23 completed Not Available Not Available Not Available Abilify 5 mg tablet active Not Available Not Available No t Available ProAir HFA 90 mcg/actuati on aerosol inhaler Inhale 2 puffs every 4-6 hours by inhalatio n route as needed. 2014 active Not Available Not Available Not Avai lable Fanapt 2 mg tablet active Not Available Not Available Not Available Abilify Maintena 300 mg intramuscul ar suspension, extended release Inject 300 mg every month by intramusc ular route. active Not Available Not Available No t Available Vitals Date Recorded Body weight Body height Body mass index (BMI) Respiratory rate Body temperature Provider Name and Address Organization Details Last Updated DateTime 09/25/2013 20818.2 9527 g 149.86 cm 34.5 kg/m2 18 /min 98.4 [degF] Te Fish LPN [facility] 4 19:44:55 Date Recorded Oxygen saturation Oxygen saturation in Arterial blood by Pulse oximetry Heart rate Systolic blood pressure Diastolic blood pressure Provider Name and Address Organization Details Last Updated DateTime 4 98 % 98 % 104 /min 118 mm[Hg] 70 mm[Hg] Te Fish LPN [facility] 4 19:47:52 Date Recorded Respiratory rate Body weight Oxygen saturation Oxygen saturation in Arterial blood by Pulse oximetry Body height Body temperature Heart rate Body mass index (BMI) Systolic blood pressure Diastolic blood pressure Provider Name and Address Organization Details Last Updated DateTime 5 17 /min 09487.3 34049 g 98 % 98 % 149.86 cm 98.8 [degF] 112 /min 36.6 kg/m2 120 mm[Hg] 80 mm[Hg] Dena Fontanez LPN [facility] 5 16:24:53 Date Recorded Body weight Oxygen saturation Oxygen saturation in Arterial blood by Pulse oximetry Body height Body mass index (BMI) Body temperature Heart rate Systolic blood pressure Diastolic blood pressure Provider Name and Address Organization Details Last Updated DateTime 5 62313.8 1134 g 93 % 93 % 152.4 cm 35.5 kg/m2 98.8 [degF] 113 /min 118 mm[Hg] 82 mm[Hg] Gerardo Domínguez LPN [facility] 5 19:43:34 Date Recorded Body height Provider Name an d Address Organization Details Last Updated DateTime 10/06/2015 152.4 cm Dena Fontanez LPN [facility] 10/06/2015 14:24:42 Date Recorded Body weight Body mass index (BMI) Provider Name and Address Organization Details Last Updated DateTime 10/06/2015 32944.33 g 37.7 kg/m2 Dena Fontanez LPN [facility] 10/06/2015 14:24:52 Date Recorded Respiratory rate Provider Name a nd Address Organization Details Last Updated DateTime 10/06/2015 16 /min Dena Fontanez LPN [facility] 10/06/2015 14:26:08 Date Recorded Body temperature Provider Name a nd Address Organization Details Last Updated DateTime 10/06/2015 99 [degF] Dena Fontanez LPN [facility] 10/06/2015 14:26:22 Date Recorded Oxygen saturation Oxygen saturation in Arterial blood by Pulse oximetry Provider Name and Address Organization Details Last Updated DateTime 10/06/2015 98 % 98 % Dena Fontanez LPN [facility] 10/06/2015 14:26:31 Date Recorded Heart rate Provider Name an d Address Organization Details Last Updated DateTime 10/06/2015 90 /min Dena Fontanez LPN [facility] 10/06/2015 14:26:33 Date Recorded Body height Provider Name an d Address Organization Details Last Updated DateTime 11/24/2015 152.4 cm Gerardo Domínguez LPN [facility] 11/24/2015 14:06:45 Date Recorded Body weight Provider Name an d Address Organization Details Last Updated DateTime 11/24/2015 64322.7 g Gerardo Domínguez LPN [facility] 11/24/2015 14:08:03 Date Recorded Body mass index (BMI) Respiratory rate Provider Name and Address Organization Details Last Updated DateTime 11/24/2015 38.5 kg/m2 19 /min Gerardo Domínguez LPN [facility] 11/24/2015 14:08:04 Date Recorded Oxygen saturation Oxygen saturation in Arterial blood by Pulse oximetry Provider Name and Address Organization Details Last Updated DateTime 11/24/2015 97 % 97 % Gerardo Domínguez LPN [facility] 11/24/2015 14:08:23 Date Recorded Body temperature Provider Name a nd Address Organization Details Last Updated DateTime 11/24/2015 98.2 [degF] Gerardo Domínguez LPN [facility] 11/24/2015 14:08:28 Date Recorded Heart rate Provider Name an d Address Organization Details Last Updated DateTime 11/24/2015 104 /min Gerardo Domínguez LPN [facility] 11/24/2015 14:08:32 Date Recorded Systolic blood pressure Diastolic blood pressure Provider Name and Address Organization Details Last Updated DateTime 10/06/2015 128 mm[Hg] 80 mm[Hg] Dena Fontanez LPN [place] - [facility] 10/06/2015 14:27:43 Date Recorded Systolic blood pressure Diastolic blood pressure Provider Name and Address Organization Details Last Updated DateTime 11/24/2015 120 mm[Hg] 78 mm[Hg] Gerardo Domínguez LPN [place] - [facility] 11/24/2015 14:09:21 Social History Question Answer Notes LastModified by Organizat ion Details LastModified Time Tobacco Smoking Status Current Every Day Smoker Cassie camara [place] - [facility] 02/01/2013 08:26:45 Do You Have An Advance Directive? No Information n ot available 11/24/2015 What Is Your Level Of Alcohol Consumption? None [email or web address] Information not available 09/13/2013 What Is Your Level Of Caffeine Consumption? Heavy Information not available 09/25/2013 How Much Tobacco Do You Chew? None Information not available 11/24/2015 What Type Of Diet Are You Following? REGULAR Information n ot available 09/25/2013 Which Illicit Or Recreational Drugs Have You Used? None [email or web address] Information not available 09/13/2013 Hard Of Hearing Or Deaf In One Or Both Ears? No Information not available 10/06/2015 Legally Blind In One Or Both Eyes? No Information no t available 10/06/2015 How Often Do You Need Help Reading Or Understanding Information About Your Medical Problems? (age 18 And Up) Never Information not available 11/24/2015 Have You Seen A Dentist In The Past 12 Months? No Information not available 10/06/2015 Control Method No Method: /Seek ing Information not available 10/06/2015 Are You Taking Any Over The Counter Medication, Herbal Therapies And/or Supplements? No Information not available 10/06/2015 Marital Status Single Informatio n not available 09/25/2013 Do You Use Protection During Sex? No Information not available 10/06/2015 Seat Belts Used Routinely Yes [email or web address] Information not available 09/13/2013 Are You Sexually Active? No Information not available 10/06/2015 Do You Have Smoke And Carbon Monoxide Detectors In Your Home? Yes [email or web address] Information not available 09/13/2013 Are You Passively Exposed To Smoke? Yes [email or web address] Information no t available 09/13/2013 How Much Tobacco Do You Smoke? 0.5 PPD Information not available 10/06/2015 How Many Years Have You Smoked Tobacco? 2 [email or web address] Information not available 02/01/2013 Sex: Female Functional Status Question Answer Note LastModified by Organizat ion Details LastModified Time Are you able to care for yourself? Yes [email or web address] Information not available 09/13/2013 What is your exercise level? Occasional Information not available 11/24/2015 Mental Status None recorded. Family History Relationship Description Onset Age of this Age Resolved Age Notes LastModified by Organization Details LastModified Time Mother History of mood disorder Not available 2014 19:43:34 Medical History Condition Response Coronary Artery Disease N Gout N Kidney Stones N Blood Diseases N Hyperthyroidism N Medication adverse effects N (PM) Board of Pharmacy Discrepancy N Depression Y COPD N Hypothyroidism N Developmental or Behavioral Disorders N Anxiety Disorder N Vision or Eye Problems N Arthritis N Serious Illness or Injuries N Congenital Anomalies N Cancer N Stroke N Bladder or Kidney Problems N Hospital Admission other than N High Cholesterol N Liver Disease N Fibromyalgia N Kidney Disease N Heart Problems N Ear or Hearing Problems N Eczema/Hives/other skin conditions N ADD or ADHD Y Skin Problems N Anemia N Constipation N Diabetes N Bedwetting N Seizures/Epilepsy N Tuberculosis N Muscle/Joint/Bone Problems N Diverticulitis N Asthma N Allergies Y GERD/Reflux N Heart Disease N Pulmonary Embolism N Hypertension N Chicken Pox N Osteoporosis N Gynecological History Statement/Question Response Menses Monthly Y Age at Menarche 8 None LMP Definite Obstetrics History GPAL:G 0 P 0 0 0 0 Past Encounters Encounter ID Performer Location Encounter Start Date Encounter Closed Date Diagnosis/Indication Diagnosis SNOMED-CT Code Diagnosis ICD10 Code Diagnosis Note [id number] Rena Roberts [employer] ARCHITECT [facility] [place] [address] 02/01/2013 08:16:44 02/01/2013 09:03:20 Non-suppurative otitis media 623384084 Acute bronchitis 58509227 Smoker [id number] [facility] ed pt. to quit smoking. [id number] Dena Fontanez LPN [facility] [place] [facility] [place] [id number] 09/13/2013 09:52:46 09/13/2013 10:52:26 Chronic back pain [id number] SEE DISCUSSION DUE TO CHRONICITY I AM GOING TO OBTAIN CBC, CMP, AND LUMBAR FILMS [id number] Dena Fontanez LPN [facility] [place] [facility] [place] [address] 09/25/2013 19:40:26 09/25/2013 20:15:25 Upper respiratory infection [id number] Discussed with patient and mother. Discussed viral vs. bacterial infections . ProAir as prescribed if needed, her old inhaler is broken. Zpak if sx persist for more than a week or worsen, discussed use of ABs. Discussed symptomati c tx. May continue cough DM and add expectoran t. Discussed worsening of sx to look for including breathing difficulti es and f/u needed. If sx persist beyond a week she is to f/u with PCP or return here. Encouraged smoking cessation. [id number] [facility] [place] [id number] 12/25/2014 16:05:49 12/25/2014 18:10:46 Acute upper respiratory infection 15281378 See discussion Will give a new hfa Tessalon for cough. [id number] [facility] [address] 12/31/2014 19:25:15 12/31/2014 19:50:13 Acute bronchitis 02633105 Continue inhaler. Discussed why I was not prescribin g an antibiotic . If fevers develop RTC. [id number] Dilip Palenica PA-C [facility] [place] [address] [place] [place] [address] 10/06/2015 14:15:00 10/06/2015 14:55:28 Finding of body mass index 979915239 Z68.37 Venereal d isease screening 668790069 Z11.3 --Pt is currently asymptomat icDiscusse d need for safe sex practicesW ill obtain std panel & treat if indicatedR tc prn. [id number] Dilip Palencia PA-C [facility] [place] [address] [place] [id number] 11/24/2015 13:30:17 11/24/2015 14:44:03 Shoulder strain 224566201 S46.911A RICENsaid as prescribed for pain--pt warned not to mix with other nsaidsAdvi sed against use of sling to prevent frozen shoulderMa y consider PT if symptoms do not show improvemen t within 1-2 weeksPt to rtc ramon if no improving. Health Concerns Section Related Observation LastModified by Organization Detai ls LastModified Time None Recorded Concern Status LastModified by Organization Details LastModified Time None Recorded Advance Directives Directive N: Payers Encounter Date Sequence Insurance Name Policy Number Policy Dukes Covered Member ID Dukes Member ID Guarantor Name 09/25/2013 1 [place] [employer] Rena D Elmer [id number] Rena D Elmer 12/25/2014 1 [place] [employer] Rena D Elmer [id number] Rena D Elmer 12/31/2014 1 [place] [employer] Rena D Elmer [id number] Rena D Elmer 10/06/2015 1 [place] [employer] Rena D Elmer [id number] Renajasmin Payne Notes Date Note Type Note Provider Name and Address Organization Details Recorded Time 09/25/2013 text/html HPI Pt c/o cough, runny nose, nasal congestion. Has had symptoms for several days. Denies fevers. Has used otc cough dm which may have helped some. Vomited after coughing yesterday morning. Pt is a smoker 1ppd. Some wheezing and shortness of breath. Denies other complaints.? Joe Sim PA-C [address] [place], [address], [facility] - [facility] 09/26/2013 08:14:58 12/25/2014 text/html HPI Pt presents c/o cough, congestion, & sore throat x 3-4 days. She denies fever, chills, dyspnea, wheezing, chest pain, n/v/d. Her mother has similar symptoms. She also requests a new albuterol inhaler, and states that she has been told by a previous doctor that they believed she has asthma. She is a smoker.? Dilip Palencia PA-C [address] [place] [address], [id number], [facility] 12/25/2014 16:52:53 12/31/2014 text/html HPI treated with Tessalon perls and an inhaler for her cough on 12/25/2014. patient states that illness has not improved. still with cough and upper respiratory congestion and sore throat. has noted no fevers. has been using her inhaler. + wheezing--history of asthma and bronchitis.? Christiana Goncalves, TEN [address] [place], [address], [facility] - [facility] 01/01/2015 08:47:48 10/06/2015 text/html Pt presents to t he office requesting std testing. She states that her exboyfriend has been going around telling everyone that she has herpes, and she does not have any symptoms of an std. She wants to have lab work to prove she is clean. Pt admits to a past hx of chlamydia in 2013 which was treated. She feels well, and denies any complaints. Dilip Palencia PA-C [address] [place], [address], [facility] - [facility] 10/06/2015 14:50:19 11/24/2015 text/html Pt presents to t he office c/o right anterior shoulder pain & decreased rom x 5 days. She denies any hx of direct trauma or recent accidents. No hx of previous shoulder problems noted. Pt is a smoker, and is very upset because she always holds her cigarette in the right. She feels well otherwise, and denies any other problems. Her LMP was the last week of October & she is not . Dilip Palencia PA-C [address] [place], [address], [facility] - [facility] 11/24/2015 15:15:08 OBGyn Episode No OBEpisode recorded.
--- OUTSIDE RECORDS SUMMARY | 2024-05-19 16:57 | XMS_ITS | Clinical Summary ---
Author Organization [facility] Address [address] [place] [address] Care Team Providers Care Assistant Professor Of Archaeology Name Role Phone Dixie Plaza MD Primary Care Provider [phone] Source Comments [facility],non-owned Affiliates and Associated Physician Practices is amultiple site organization consisting of ambulatory clinics and hospital sitesin [place], [place], [place] and [place]. This disclosure is being madepursuant to the Care Everywhere program and may not contain all information available regarding this patient. Last updated 18.[facility] ipadio Social History Tobacco Use Types Packs/Day Years Used Date Smoking Tobacco: Never Assessed Sex and Gender Information Value Date Recorded Sex Assigned at Not on file Gender Identity Not on file Sexual Orientation Not on file Plan of Treatment Health Maintenance Due Date Last Done Comments PAP SMEAR 1994 HIV SCREENING 2009 HEPATITIS C SCREENING 02/06/2012 DTAP/TDAP/TD VACCINES (1 - Tdap) 2013 HEPATITIS B VACCINE (1 of 3 - 19+ 3-dose series) 2013 COVID-19 VACCINE (1 - 2023-2 5 season) 2023 INFLUENZA VACCINE (#1) 2023 DEPRESSION SCREENING 04/18/2024 ZOSTER VACCINE (1 of 2) 02/11/2044 HIB VACCINE Aged Out No longer eligi ble based on patient's age to complete this topic HPV VACCINE Aged Out No longer eligi ble based on patient's age to complete this topic MENINGOCOCCAL (Group B) VACCINE Aged Out No longer eligible based on patient's age to complete this topic MENINGOCOCCAL VACCINE Aged Out No vi cj eligible based on patient's age to complete this topic PNEUMOCOCCAL VACCINE Aged Out No long er eligible based on patient's age to complete this topic Care Teams Assistant Professor Of Archaeology Relationship Specialty Start Date End Date Dixie Plaza MD [address] [place] [id number] PCP - General Internal Medicine 01/31/19
--- OUTSIDE RECORDS SUMMARY | 2024-05-19 16:57 | XMS_ITS | Clinical Summary ---
Author Organization [facility] Address [address] [place] [address] Care Team Providers Care Binding Cementer French Cord Name Role Phone Dixie Plaza MD Primary [...] (06/10/2020): Added automatically from request for surgery [id number] Symptomatic cholelithiasis 04/17/2020 Overview (04/17/2020): Added automatically from request for surgery [id number] Assessment & Plan (05/13/2020 8:54 AM WINDERMAN): No heavy lifting for 4 weeks. No submerging incisions for 4 weeks. Right upper quadrant pain 01/10/2020 Assessment & Plan (04/15/2020 9:05 AM WINDERMAN): Patient with symptomatic cholelithiasis. We are trying to wait to see if he could do the gallbladder and sleeve at the same time but she does not feel like she can make it given the pain that she is having. We will therefore set her up for cholecystectomy. Assessment & Plan (03/11/2020 9:16 AM WINDERMAN): Patient is set to have a right [...] 01/10/2020 Assessment & Plan (06/10/2020 9:38 AM WINDERMAN): She is set to see psych at the end of the month as well as undergo her EGD. We will then send all other information in for precertification. Her preoperative diet instructions have been given in the dietitian has gone over them. No further questions about surgery at this time. Assessment & Plan (05/13/2020 8:54 AM WINDERMAN): The patient will continue to work on small frequent meals with a goal calorie intake of around 1600. She is set to see psych in early June. We will set her up for an EGD in between this time. Once that has been completed we will then pre certify her and get her ready for surgery. Assessment & Plan (04/15/2020 9:06 AM WINDERMAN): She has done extremely well contributing this to really watching her portion size. She will continue to do small frequent meals. She has already seen the dietitian. She needs to see psych. We will see her back in 4 weeks. Assessment & Plan (03/11/2020 9:17 AM WINDERMAN): The patient has done well having lost [...] (05/29/2020): Added automatically from request for surgery [id number] Surgical History Surgery Date Site/Laterality Comments CHOLECYSTECTOMY j04/25/2020 Medical History Medical History Date Comments Motion sickness Asthma Family History Medical History Relation Name Comments Diabetes Maternal Grandmother Hyperlipidemia Mother's Brother Relation Name Status Comments Maternal Grandmother Mother's Brother Social History Tobacco Use Types Packs/Day Years [...] Average Number of Drinks Not on file 021 Frequency of Binge Drinking Not on file 05/2020 Personal Safety Answer Date Recorded Have you ever been in or are you currently in a harmful physical or emotional relationship or is someone making you feel afraid or unsafe? Denies 02/01/2023 Comments No Sex and Gender Information Value Date Recorded Sex Assigned at Not on file Legal Sex Female 9:01 AM WINDERMAN Gender Identity Not on file Sexual Orientation Not on file Obstetrics History Last Filed Vital Signs Vital Sign Reading [...] 02/01/2023 10:18 AM CDT Plan of Treatment Health Maintenance Due Date Last Done Comments Cervical Cancer Screening 1994 Depression Screening 1994 Hepatitis C Screening 1994 Pneumococcal vaccine <65 (1 of 2 - PCV) 02/11/2000 DTaP/Tdap/Td Vaccine (1 - Tdap) 2005 Varicella Vaccines (1 of 2 - 13+ 2-dose series) 2007 Hepatitis B Screening 02/11/2012 Regular Well Visit/Exam 18-64 02/11/2012 Influenza Vaccine (#1) 2023 03/12/2019 HPV Vaccines Aged Out No longer eligi ble based on patient's age to complete this topic Insurance [facility] Advance Directives For more information, please contact: [phone] * Full Code (Latest Code Status on File) Date Activated Date Inactivated Comments 06/17/2020 12:07 PM 06/17/2020 5:48 PM * Full Code Date Activated Date Inactivated Comments 06/17/2020 12:07 PM 06/17/2020 12:07 PM Care Teams Binding Cementer French Cord Relationship Specialty Start Date End Date Dixie Plaza MD PCP - General Internal Medicine 10/26/19
--- NOTE | 2024-05-19 17:02 | PC.NURSE ---
covid culture sent to lab
--- NOTE | 2024-05-19 17:03 | ED.ASTHMA ---
HPI - Asthma General Chief Complaint: Asthma Stated Complaint: congestion, cough Time Seen by Provider: 05/19/24 17:03 Source: patient Mode of arrival: ambulatory Limitations: no limitations History of Present Illness HPI Narrative: 29-year-old female with a history of smoking, asthma / bronchitis presents to the ED with a one-week history of -- cough which is productive of mucoid /mucopurulent sputum. she has recurrent cough which is made worse by taking a deep breath. -- shortness of breath no fever or chills. No chest pain MD complaint: shortness of breath Onset (ago): week(s) ( 1 week) Severity: moderate Associated symptoms: productive cough Asthma History: childhood onset Related Data Current Asthma Therapy: inhaled bronchodilator Allergies Allergy/AdvReac Type Severity Reaction Status Date / Time No Known Allergies Allergy Verified 05/19/24 17:01 Review of Systems Review of Systems: All systems reviewed & are unremarkable except as noted in HPI and below Constitutional: Constitutional: Reports as per HPI, Reports no additional constitutional complaints and Reports weakness Eyes: Eyes: Reports as per HPI and Reports no additional eye complaints ENT: Reports system reviewed and no additional complaints, except as documented and Reports as per HPI Cardiovascular: Cardiovascular: Reports as per HPI and Reports no additional cardiovascular complaints Respiratory: Respiratory: Reports as per HPI, Reports no additional respiratory complaints, Reports cough and Reports dyspnea Gastrointestinal: Gastrointestinal: Reports as per HPI and Reports no additional gastrointestinal complaints Genitourinary: Genitourinary: Reports no additional female genitourinary complaints and Reports as per HPI Musculoskeletal: Musculoskeletal: Reports no additional musculoskeletal complaints and Reports as per HPI Integumentary/Breasts: Skin/Breast: Reports system reviewed and no additional complaints, except as docu and Reports as per HPI Neurologic: Reports system reviewed and no additional complaints, except as documented and Reports as per HPI Psychiatric: Psychiatric: Reports no additional psychiatric complaints and Reports as per HPI Endocrine: Endocrine: Reports no additional endocrine complaints and Reports as per HPI Hematologic/Lymphatic: Hematologic/Lymphatic: Reports no additional hematologic/lymphatic complaints and Reports as per HPI Allergic/Immunologic: Allergic/Immunologic: Reports no additional allergic/immunologic complaints and Reports as per HPI PMFSH Past Medical History Medical History Bronchitis Menorrhagia Nicotine addiction Screening for cervical cancer Morbid obesity Chronic low back pain Asthma History of streptococcal sore throat Surgical History Surgical History Hx laparoscopic cholecystectomy Apr 2020 Family History Family History Father Family history of renal failure Grandparent Diabetes mellitus Social History Social History Smoking status: Current every day smoker Alcohol use details: denies alcohol use Substance use: never Substance use type: does not use Living arrangements: with family Occupation/Education: unemployed Exam Narrative: afebrile. Oxygen saturation of 96% on room air with a respiratory rate of 20. Const: Orientation/consciousness: patient oriented x3 Limitations: no limitations HENMT: Head: normal to inspection Ears: external ears normal Face/Nose/Sinus: Normal external nose present Face and sinus: normal facial exam Mouth: Yes Normal oral and palatal mucosa present Throat: posterior oropharynx normal Eyes: Conjunctivae: conjunctivae normal Pupils: Equal, round and reactive pupils present EOM: EOMs intact bilaterally Direct Ophthalmoscopy: no photophobia Neck: Neck: normal visual inspection, no lymphadenopathy and no meningeal signs Chest: Chest palpation & inspection: normal inspection of the chest Resp: Effort & Inspection: normal respiratory effort Auscultation: clear to auscultation bilaterally Other: Recurrent cough made worse by deep breathing. Cardio: Rate: regular rate Rhythm: regular rhythm GI: Auscultation: normal bowel sounds Other: No tenderness/ rigidity /rebound. : General: Yes no CVA tenderness Back/Spine/Pelvis: Back: no CVA tenderness Skin: General skin exam: normal color Lesions: no lesions Wounds: no wounds Neuro: General: patient oriented x3, moves all extremities, no meningeal signs, no focal motor deficits and CN's II-XI intact bilaterally Cranial nerves: Yes Nystagmus not present Speech: normal speech Gait exam (Neuro): Normal gait present Extrem: General: normal to inspection and no clubbing, cyanosis or edema Psych: Mental Status: mental status grossly normal Affect: normal affect Attitude: cooperative Course Course Emergency Course: Asthma/ bronchitis flare up- the patient is coughing a lot- will give 125 Solu-Medrol with oral steroids. The patient is having yellow exudate. Will give Z-Inocente hypertension upper respiratory tract infection-- tested positive for influenza A Vital Signs Vital signs: Vital Signs Temperature 36.5 C 05/19/24 16:56 Pulse Rate 118 H 05/19/24 16:56 Respiratory Rate 20 05/19/24 16:56 Blood Pressure 162/99 H 05/19/24 16:56 Pulse Oximetry 96 05/19/24 16:56 Oxygen Delivery Room Air 05/19/24 16:56 Temperature 38.8 C H 05/19/24 18:52 Pulse Rate 100 05/19/24 18:52 Respiratory Rate 18 05/19/24 18:52 Blood Pressure 141/97 H 05/19/24 18:52 Pulse Oximetry 96 05/19/24 18:52 Oxygen Delivery Room Air 05/19/24 18:52 Oxygen Flow Rate 6 05/19/24 17:31 MDM - Asthma MDM Narrative Medical decision making narrative: influenza a asthma/ bronchitis exacerbation Differential Diagnosis Differential diagnosis: Likely Pneumonia, COPD exacerbation, ARDS and Pneumothorax Medical Records Attestation: I reviewed the patient's medical records. Lab Data Attestation: I reviewed the patient's lab results. Labs: Lab Results 05/19/24 Range/Units 17:11 Influenza A (RT-PCR) Positive A (Negative) Influenza B (RT-PCR) Negative (Negative) RSV (RT-PCR) Negative (Negative) SARS-CoV-2 RNA (RT-PCR) Negative (Negative) Discharge Plan Discharge Clinical Impression: Bronchitis, Influenza A Asthma with acute exacerbation Qualifiers: Asthma severity: moderate Asthma persistence: persistent Qualified Code(s): J45.41 - Moderate persistent asthma with (acute) exacerbation Patient Disposition: Home, Self-Care Condition: Stable Instructions: Antibiotic Form, Asthma (ED), Influenza (ED) Patient Language: Tajik Prescriptions: New prednisone 20 mg tablet 20 mg PO BID Qty: 10 0RF azithromycin [Zithromax Z-Inocente] 250 mg tablet See Rx Instructions .ROUTE .COMPLEX Qty: 6 0RF Rx Instructions: For 250 mg dose pack: take 500 mg today (day 1), then 250 mg for 4 days (days 2-5) No Action albuterol sulfate 90 mcg/actuation HFA aerosol inhaler 2 puff inhalation QID PRN (Reason: shortness of breath or wheezing) Qty: 8.5 0RF tramadol 50 mg tablet 50 mg PO Q6H PRN (Reason: pain) Qty: 20 0RF ondansetron 4 mg tablet,disintegrating 4 mg PO Q6H PRN (Reason: nausea and vomiting) Qty: 10 0RF pantoprazole [Protonix] 40 mg tablet,delayed release (DR/EC) 40 mg PO QAM 28 Days Qty: 28 0RF Follow-up/Referrals: Iam Riley MD [Primary Care Provider] - Time of Disposition: 18:46
[2024-05-19 17:14] VITALS: PULSE 118; RESP 22; O2SAT 94
[2024-05-19] MEDS: IPRATROPIUM 0.5 MG/ALBUTEROL SULFATE 2.5 MG AMPUL.NEB 3 ML INHALATION (17:14)
--- OUTSIDE RECORDS SUMMARY | 2024-05-19 17:16 | XMS_ITS | Continuity of Care Document ---
Demographics Address [address] [place] [address] Work Phone Home Phone Preferred Language und Marital Status Never Sabianist Affiliation Mandaeism Race White Ethnic Group Not or Lati no Author Organization [facility] Address [address] [place] [address] Phone Care Team Providers Care Quality Supervisor Name Role Phone SHARIF LUONG MD Unavailable Unavailable Allergies, Adverse Reactions, Alerts Substance Reaction Status Criticality No Known Allergies Active No Inform ation Procedures Procedure Date OFFICE/OUTPATIENT VISIT, NEW OFFICE/OUTPATIENT VISIT, NEW Advance Directives Directive Yes / No Effective Date File Name No Information Encounters Encounter Description Practice Location Reason(s) For Visit Diagnoses Date Provider Providers Copied on Encounter [facility], [facility] [place], [address], tel: [phone] [facility] No Information 6 CHERISE OLGUIN. [facility] [place], [address], . tel: [phone] Referring Provider: SHARIF Staton, [facility] [place], [address]. tel:[phone] OFFICE/OUTPA TIENT VISIT, [facility], [address] [place], [address], tel: [phone] [facility] infertility (chief complaint)ab normal bleeding (chief complaint)co ntinue (chief complaint) Secondary oligomenorrheaFem go infertility associated with anovulation 6 CHERISE OLGUIN. [address] [place], [address], [place]. tel: [phone] Referring Provider: SHARIF Staton, [address], [place], [address]. tel:[phone] OFFICE/OUTPA TIENT VISIT, [facility], [address], [place], [address], [place] tel: [phone] [facility] Bronchitis, Acute 5 Wendy Young. [address] [place], [id number] , [place]. tel:[phone] Referring Provider: Hannah Nam, [address] [place], [address] . tel:[phone] Family History Family Member Type Diagnosis Age At Onset Paternal grandfather Problem (finding) CVA Maternal grandmother Problem (finding) Diabetes mellit Father Problem (finding) alcoholism Father Problem (finding) Cirrohsis Maternal grandmother Problem (finding) PA, CAD Mother Problem (finding) Bipolar Maternal grandmother [...] cleared). Patient was seeing Dr. Campos in [place] and Dr. Tovar in [place].Discussed with patient and partner obtaining records before [...]
[2024-05-19 17:20] VITALS: O2SAT 99
[2024-05-19 17:31] VITALS: PULSE 114; RESP 20; O2SAT 98
[2024-05-19 17:57] LABS: SARS-CoV-2 RNA PCR Negative (Negative)
[2024-05-19 18:22] LABS: Influenza A QL RT-PCR Positive (Negative); Influenza B QL RT-PCR Negative (Negative); RSV RNA, RT-PCR Negative (Negative)
[2024-05-19 18:52] VITALS: BP 141/97; PULSE 100; RESP 18; TEMP 38.8; O2SAT 96
[2024-05-19] MEDS: methylPREDNISolone SOD SUCC 125 MG VIAL IM (18:59)
== END 2024-05-19 19:16 | disposition home or self-care (01) ==
PROVIDERS: Emergency Provider Internal Medicine Critical Care Medicine; PCP Family Medicine
DX: J10.1 Influenza due to other identified influenza virus with other respiratory manifestations (principal); J40 Bronchitis, not specified as acute or chronic; J45.41 Moderate persistent asthma with (acute) exacerbation; F17.200 Nicotine dependence, unspecified, uncomplicated; Z20.822 Contact with and (suspected) exposure to COVID-19
CPT/HCPCS: 71045; 87637; 96372; 99283; J2919

== ENCOUNTER 2024-08-01 14:14 | Outpatient (RCR) | payer OTHER, SELFPAY ==
--- NOTE | 2024-08-01 15:18 | OPREHPOC ---
Outpatient Therapy Plan of Care This is a Multidisciplinary Plan of Care that may contain components documented by all disciplines (PT, OT, and ST.) PT Problem 1 PT Problem #1 Knowledge Deficit PT Goal 1 Goal / Goal Update Independent and compliant with HEP. Target Visit 4 PT Problem 2 PT Problem #2 Pain PT Goal 1 Goal / Goal Update Pt to report no more than 4/10 pain at rest. Pt to report no more than 6/10 pain with activity. Target Visit 12 PT Problem 3 PT Problem #3 Impaired Functional Mobility PT Goal 1 Goal / Goal Update Pt to report 20% reduction in disability on quick DASH. Pt to tolerate sitting or walking for more than 30 mins before onset of back pain. Target Visit 12 PT Problem 4 PT Problem #4 Impaired Strength PT Goal 1 Goal / Goal Update Pt to improve lower abdominal strength to 4+/5. Pt to improve gross LE strength to 5/5. Target Visit 12
--- NOTE | 2024-08-01 15:18 | PTOPEVAL1 ---
Assessment and note entered by Jeanette Ballard, PT Evaluation Information Assessment Status Evaluation ICD-10 Condition Codes (PT) Pain in low back M54.50 Onset 07/02/24 Subjective Information Pt reports pack pain for nearly a decade. She reports she has come to therapy once for her back before but stopped coming. She notes numbness and tingling in the back and down the L leg. She notes occasional numbness in the R hip as well. Since this exacerbation of pain she also notes she's been having R shoulder problems that have radiated to her neck and cause migraines. She thinks these may be connected. Pain increases to 10/10 when doing dishes, laundry, prolonged sitting, walking, and lifting. She feels like her back pain is worse than before. Most recent lumbar x-ray from 2022 shows mild spondylosis with small degenerative osteophytes. Reported Pain Level Pain Score 5: Self Report Assessment PT Clinical Summary Mrs. Payne is a 29 yo female who enters the clinic with reports on long standing low back pain . She also has pain, numbness, and tingling into the L lower leg and R hip. Her pain intensifies with prolonged sitting, walking, bending forward, and lifting. She demonstrates impaired core and lower extremity strength worse on L than on R as well as pain with active lumbar flexion and extension. She will benefit from skilled PT intervention to improve on these deficits to be able to perform daily functional tasks with less pain. Plan of Care Interventions Electrical Stimulation,Gait Training,Hot Pack/Cold Pack,Manual Therapy,Neuro Re-education,Patient/ Caregiver Education,Therapeutic Activities, Therapeutic Exercise,Self-Care/Home Management PT Services Indicated Yes Treatment Frequency and 3x/week for 12 visits Duration These treatments will address the objective and functional deficits as defined above. The patient will be advanced safely and appropriately in order for the patient to progress towards his/her prior level of function. Additional exercises will be introduced and as well as a comprehensive home exercise program upon discharge, if needed, ?to ensure carryover of functional gains achieved in the clinic. This treatment plan has been reviewed and agreement upon by the patient.
--- NOTE | 2024-08-06 17:57 | PCPTNOTE ---
Patient called & cancelled scheduled appointment this date.
--- NOTE | 2024-08-24 15:16 | PCPTNOTE ---
Pt cancelled session. Reports she is not going to make it in.
--- NOTE | 2024-09-06 16:55 | PCPTNOTE ---
Patient did not show up for scheduled appointment this date.
== END 2024-10-30 23:59 | disposition home or self-care (01) ==
LOC: CHSPT 14:14
PROVIDERS: PCP Family Medicine; Visit Provider Family Medicine
DX: M54.9 Dorsalgia, unspecified (principal)
CPT/HCPCS: 97014; 97110; 97161; G0283

== ENCOUNTER 2024-12-26 15:06 | Outpatient (CLI) | payer OTHER, SELFPAY ==
--- OUTSIDE RECORDS SUMMARY | 2015-08-25 08:41 | XMS_ITS | Continuity of Care Document ---
Demographics Address [address] [place] [address] Work Phone Home Phone Preferred Language und Marital Status Never Catholic Affiliation Congregation Race White Ethnic Group Not or Lati no Author Organization [facility] Address [address] [place] [address] Phone Care Team Providers Care Army Ranger Name Role Phone Unavailable Unavailable Unavailable Allergies, Adverse Reactions, Alerts Substance Reaction Status Criticality No Known Allergies Active No Inform ation Procedures Procedure Date OFFICE/OUTPATIENT VISIT, NEW OFFICE/OUTPATIENT VISIT, [facility] Advance Directives Directive Yes / No Effective Date File Name No Information Encounters Encounter Description Practice Location Reason(s) For Visit Diagnoses Date Provider Providers Copied on Encounter [facility], [address] [place], [address], tel: [phone] [facility] No Information 6 No Information OFFICE/OUTPA TIENT VISIT, [facility], [address] [place], [address], tel: [phone] [facility] infertility (chief complaint)ab normal bleeding (chief complaint)co ntinue (chief complaint) Secondary oligomenorrhea Female infertility associated with anovulation 6 No Information OFFICE/OUTPA TIENT VISIT, [facility], [address] [place] [place], [address], [place] tel: [phone] [facility] Bronchitis, Acute 3 5 [facility] [address], [id number], [place]. tel:[phone] Referring Provider: Hannah Nam, [address], [place], [address] . tel:[phone] Family History Family Member Type Diagnosis Age At Onset Paternal grandfather Problem (finding) CVA Maternal grandmother Problem (finding) Diabetes mellit us Father Problem (finding) alcoholism Father Problem (finding) Cirrohsis Maternal grandmother Problem (finding) [place], CAD Mother Problem (finding) Bipolar Maternal grandmother Problem (finding) hypertension Mother Problem (finding) Anxiety Paternal grandfather Problem (finding) Diabetes mellit us Father Problem (finding) hypertension Payers Payer name Insurance type Covered alliance party ID Authoriza tion(s) No Information Social History Type Description Quantity Date Captured Comments Alcohol Use Details Unknown Caffeine Use Details Unknown Tobacco Use Status Smoking Status No Information Sex Female Sexual Orientation Straight or heterosexual Chief Complaint And Reason For Visit No Information Reason For Referral Reason For Referral No Information History Of Present Illness Encounter Date Complaint History Of Prese nt Illness continue Patient reports this has been her normal since she came off her pills at 16 years old. She reports that when she started her menses they were regular and this was her pattern until she was started on DepoProvera around 14 years old and she got 2-3 injections. Nevery on any other type of control. No abnormal pap smears, history of chlamydia in September (treated and cleared). Patient was seeing Dr. Campos in [place] and Dr. Tovar in [place].Discussed with patient and partner obtaining records before ordering additional work-up at this time. Patient and partner advised they must quit smoking if we are going to assist them in getting . Reviewed increased risk of miscarriage with smoking. Patient and partner expressed understanding. infertility The age of menar milad onset was 8. Patient not . Additional information: Patient stopped control when 16 years old and since then has had 2 sexual partners. Patient's previous partner had no other pregnancies, patient does report having a positive test 1 time with that partner but then menses began the next day and was like a heavy menses, after that test was negative. Patient has been sexually active with current partner for about 16 months without successful . abnormal bleeding Additional inf ormation: First day of last menses 04/18 or 04/19 and last about 4 days then had a single day of spotting after that. Prior to April patient had a cycle sometime in December.. Functional Status Date Functional Assessmen t No Information Instructions Date Instruction Additional Infor manisha Will begin by obtain ing past records to determine what work-up has been performed and when labs were obtained. Will plan further testing and follow-up after that information is obtained. Related to Secondary oligomenorrhea Patient and partner advised to stop smoking before we will do anything to assist with infertility. Related to Female infertility associated with anovulation See detailed plan. Related to Se condary oligomenorrhea Assessments Type Assessment Date No Information Patient Care Teams Name Effective Dates (start - stop) Status Members No Information
--- OUTSIDE RECORDS SUMMARY | 2024-12-26 15:32 | XMS_ITS | Clinical Summary ---
Author Organization [facility] Address [address] [place] [address] Care Team Providers Care Supercalender Operator Helper Name Role Phone None, Provider MD Primary [...] on file Legal Sex Female 5:48 PM MANAGER ARCHITECTURE Gender Identity Not on file Sexual Orientation Not on file Last Filed Vital Signs Vital Sign Reading Time Taken Comments Blood Pressure 119/88 04/08/2019 2:25 AM MANAGER ARCHITECTURE Pulse 87 04/08/2019 2:25 AM MANAGER ARCHITECTURE Temperature 36.3 C (97.4 F) 04/08/2019 2:25 AM MANAGER ARCHITECTURE Respiratory Rate 20 04/08/2019 2:25 AM MANAGER ARCHITECTURE Oxygen Saturation 100% 04/08/2019 2:25 AM MANAGER ARCHITECTURE Inhaled Oxygen Concentration - - Weight - - Height - - Body Mass Index - - Plan of Treatment Health Maintenance Due Date Last Done Comments Cervical Cancer Screening Pa p Smear (Age 30 to 64) Every 3 Years 1994 Annual Physical 1997 Hepatitis C 02/11/2012 DTaP, Tdap and Td Vaccines ( 1 - Tdap) 2013 Hepatitis B Vaccines (1 of 3 - 19+ 3-dose series) 2013 Pneumococcal Vaccine: Pediat rics (0 to 5 Years) and At-Risk Patients (6 to 49 Years) (1 of 2 - PCV) 2013 HPV Vaccines (1 - 3-dose SCD M series) 2021 Cervical Cancer Screening Pa p with HPV Testing (Age 30 to 64) Every 5 Years 02/11/2024 Cervical Cancer Screening with HPV 02/11/2024 COVID-19 Vaccine ( - 2023-2 5 season) 2024 Meningococcal B Vaccine Aged Out No l onger eligible based on patient's age to complete this topic Meningococcal Vaccine Aged Out No vi cj eligible based on patient's age to complete this topic RSV Immunizations Under 20 Months Aged Out No longer eligible based on patient's age to complete this topic Insurance Care Teams Supercalender Operator Helper Relationship Specialty Start Date End Date None, Provider, PCP - General 04/08/19
--- OUTSIDE RECORDS SUMMARY | 2024-12-26 15:32 | XMS_ITS | Clinical Summary ---
Author Organization [facility] Medical Office Building [address] Address [address] [place] [address] Care Team Providers Care Cod Clerk Name Role Phone Dixie Plaza MD Primary [...] (06/10/2020): Added automatically from request for surgery [id number] Symptomatic cholelithiasis 04/17/2020 Overview (04/17/2020): Added automatically from request for surgery [id number] Assessment & Plan (05/13/2020 8:54 AM MANAGER OFFICE SERVICES): No heavy lifting for 4 weeks. No submerging incisions for 4 weeks. Right upper quadrant pain 01/10/2020 Assessment & Plan (04/15/2020 9:05 AM MANAGER OFFICE SERVICES): Patient with symptomatic cholelithiasis. We are trying to wait to see if he could do the gallbladder and sleeve at the same time but she does not feel like she can make it given the pain that she is having. We will therefore set her up for cholecystectomy. Assessment & Plan (03/11/2020 9:16 AM MANAGER OFFICE SERVICES): Patient is set to have a right [...] 01/10/2020 Assessment & Plan (06/10/2020 9:38 AM MANAGER OFFICE SERVICES): She is set to see psych at the end of the month as well as undergo her EGD. We will then send all other information in for precertification. Her preoperative diet instructions have been given in the dietitian has gone over them. No further questions about surgery at this time. Assessment & Plan (05/13/2020 8:54 AM MANAGER OFFICE SERVICES): The patient will continue to work on small frequent meals with a goal calorie intake of around 1600. She is set to see psych in early June. We will set her up for an EGD in between this time. Once that has been completed we will then pre certify her and get her ready for surgery. Assessment & Plan (04/15/2020 9:06 AM MANAGER OFFICE SERVICES): She has done extremely well contributing this to really watching her portion size. She will continue to do small frequent meals. She has already seen the dietitian. She needs to see psych. We will see her back in 4 weeks. Assessment & Plan (03/11/2020 9:17 AM MANAGER OFFICE SERVICES): The patient has done well having lost [...] (05/29/2020): Added automatically from request for surgery [id number] Surgical History Surgery Date Site/Laterality Comments CHOLECYSTECTOMY [...] on file Legal Sex Female 9:01 AM MANAGER OFFICE SERVICES Gender Identity Not on file Sexual Orientation Not on file Obstetrics History Last Filed Vital Signs Vital Sign Reading Time Taken Comments Blood Pressure 147/92 02/01/2023 12:00 PM CDT Pulse 93 02/01/2023 12:00 PM CDT Temperature 36.9 C (98.5 F) 02/01/2023 10:18 AM CDT Respiratory Rate 16 02/01/2023 10:18 AM CDT Oxygen Saturation 91% 02/01/2023 12:00 PM CDT Inhaled Oxygen Concentration - - Weight 102.1 kg (225 lb) 02/01/2023 10:18 AM CDT Height 149.9 cm (4' 11) 02/01/2023 10:18 AM CDT Body Mass Index 45.44 02/01/2023 10:18 AM CDT Plan of Treatment Health Maintenance Due Date Last Done Comments Cervical Cancer Screening 1994 Depression Screening 1994 Hepatitis C Screening 1994 DTaP/Tdap/Td Vaccine (1 - Tdap) 2005 Varicella Vaccines (1 of 2 - 13+ 2-dose series) 2006 Hepatitis B Screening 02/11/2012 Regular Well Visit/Exam 18-64 02/11/2012 Pneumococcal vaccine <65 (1 of 2 - PCV) 2013 HPV Vaccines (1 - 3-dose SCDM series) 2021 Influenza Vaccine (#1) 2024 03/12/2019 Insurance [facility] Advance Directives For more information, please contact: [phone] * Full Code (Latest Code Status on File) Date Activated Date Inactivated Comments 06/17/2020 12:07 PM 06/17/2020 5:48 PM * Full Code Date Activated Date Inactivated Comments 06/17/2020 12:07 PM 06/17/2020 12:07 PM Care Teams Cod Clerk Relationship Specialty Start Date End Date Dixie Plaza MD PCP - General Internal Medicine 10/26/19
--- OUTSIDE RECORDS SUMMARY | 2024-12-26 15:32 | XMS_ITS | Encounter Summary ---
Author Organization [facility] Address [facility] [place] [address] Care Team Providers Care Afternoon Nanny Name Role Phone None, Provider Primary Care Provider Unavaila ble Encounter Details Date Type Department Care Team (Late st Contact Info) Description 09/23/2018 Abstract SFL CONVERSION [address] [place] [address] , Generic Conversion, Social History Tobacco Use Types Packs/Day Years Used Date Smoking Tobacco: Never Assessed Comments Unknown Sex and Gender Information Value Date Recorded Sex Assigned at Not on file Legal Sex Female 5:48 PM SLICING MACHINE OPERATOR Gender Identity Not on file Sexual Orientation Not on file documented as of this encounter Plan of Treatment Not on file documented as of this encounter Visit Diagnoses Not on filedocumented in this encounter Care Teams Afternoon Nanny Relationship Specialty Start Date End Date None, Provider, PCP - General 04/08/19 documented as of this encounter
--- OUTSIDE RECORDS SUMMARY | 2024-12-26 15:32 | XMS_ITS | Clinical Summary ---
Author Organization [facility] Address [address] [place] [address] Care Team Providers Care Advanced Nursing Professor Name Role Phone Dixie Plaza MD Primary Care Provider [phone] Source Comments [facility],non-owned Affiliates and Associated Physician Practices is amultiple site organization consisting of ambulatory clinics and hospital sitesin [place], [place], [place] and [place]. This disclosure is being madepursuant to the Care Everywhere program and may not contain all information available regarding this patient. Last updated 18.[facility] [employer] Social History Tobacco Use Types Packs/Day Years Used Date Smoking Tobacco: Never Assessed Comments Unknown Sex and Gender Information Value Date Recorded Sex Assigned at Not on file Legal Sex Female 9:20 AM CDT Gender Identity Not on file Sexual Orientation Not on file Plan of Treatment Health Maintenance Due Date Last Done Comments HIV SCREENING 2009 HEPATITIS C SCREENING 02/06/2012 DTAP/TDAP/TD VACCINES (1 - Tdap) 2013 HEPATITIS B VACCINE (1 of 3 - 19+ 3-dose series) 2013 HPV VACCINE (1 - 3-dose SCDM series) 2021 COVID-19 VACCINE (1 - 2023-2 5 season) 2023 DEPRESSION SCREENING 04/18/2024 INFLUENZA VACCINE (#1) 2024 ZOSTER VACCINE (1 of 2) 02/11/2044 HIB VACCINE Aged Out No longer eligi ble based on patient's age to complete this topic MENINGOCOCCAL (Group B) VACC INE SHARED DECISION-MAKING Aged Out No longer eligibl e based on patient's age to complete this topic MENINGOCOCCAL GROUPS A/C/Y/W VACCINE Aged Out No longer eligible b ased on patient's age to complete this topic PNEUMOCOCCAL VACCINE Aged Out No long er eligible based on patient's age to complete this topic Insurance [facility] Care Teams Advanced Nursing Professor Relationship Specialty Start Date End Date Dixie Plaza MD [address] [place] [address] PCP - General Internal Medicine 01/31/19
--- OUTSIDE RECORDS SUMMARY | 2024-12-26 15:32 | XMS_ITS | Clinical Summary ---
Author Organization [facility] Address [address] [place] [address] Phone Care Team Providers Care Bender Machine Operator Name Role Phone Iam Riley MD Primary Care Provider Dorian Cortez MD Unavailable [phone] Allergies No known active allergies Medications levonorgestrel [...] 109 12/07/2022 2:08 PM CDT Temperature 36 C (96.8 F) 12/07/2022 2:08 PM CDT Respiratory Rate 18 12/07/2022 2:08 PM CDT Oxygen Saturation 95% 12/07/2022 2:08 PM CDT Inhaled Oxygen Concentration - - Weight 104.8 kg (231 lb) 12/07/2022 2:08 PM CDT Height 149.9 cm (4' 11) 12/07/2022 2:08 PM CDT Body Mass Index 46.66 12/07/2022 2:08 PM CDT Plan of Treatment Health Maintenance Due Date Last Done Comments Hepatitis C Virus (HCV) Screening 1994 TdaP Immunization 1994 Hepatitis B Immunization (1 of 3 - 19+ 3-dose series) 2013 Pneumococcal Immunization Combined (1 of 2 - PCV) 2013 Pap Smear 2015 Human Papillomavirus (HPV) Immunization (1 - 3-dose SCDM series) 2021 Cervical Cancer Screening (CCS) 02/11/2024 HPV/Cotest 02/11/2024 Influenza Immunization (#1) 2024 12/0 05/2021, 03/12/2019 SARS-COV-2 Immunization (3 - season) 2024 02/03/2021, 01/06/2021 Respiratory Syncytial Virus (RSV) Immunization (Adult) (1 - 1-dose 75+ series) 2069 Meningococcal Immunization (ACWY) Aged Out No longer eligible b ased on patient's age to complete this topic Rotavirus Immunization Aged Out No lo nger eligible based on patient's age to complete this topic Insurance [employer]ICA[employer] [facility] [employer] Care Teams Bender Machine Operator Relationship Specialty Start Date End Date Iam Riley MD [address] [place] [address] PCP - General Pediatrics 12/27/22 Dorian Cortez MD [address] [place] [id number] Consulting Physician Neurology 12/07/22
[2024-12-26 15:58] LABS: Glucose Urine UA Negative (Negative); Hematocrit 41.6 % (35.0-49.0); Hemoglobin 14.0 g/dL (12.0-15.0); Immature Granulocyte Percent A 0.4 % (0.0-0.0); Leukocyte Esterase Ur Negative (Negative); Lymphocytes Absolute Auto 2.72 K/mm3 (1.10-4.50); Mean Corpuscular HGB Conc 33.7 g/dL (32-36); Mean Corpuscular Hemoglobin 28.5 pg (27.0-31.0); Mean Corpuscular Volume 84.7 fL (78.0-102.0); Nitrate Urine Negative (Negative); Nucleated Red Blood Cells Absolute Auto 0.00 K/mm3 (0.00-0.00); Nucleated Red Blood Cells Perc 0.0 % (0-0.0); Platelet Count Result 406 K/mm3 (150-420); Red Blood Count 4.91 M/mm3 (4.20-5.40); Specific Grav Ur >= 1.030 (1.010-1.020); White Blood Count 10.2 K/mm3 (4.8-10.8)
[2024-12-26 16:00] LABS: Add Urine Microscopic? NO; Appearance Urine Clear (Clear)
[2024-12-26 16:08] LABS: Alanine Aminotransferase 39 U/L (6-35); Albumin Level 4.2 g/dL (3.5-5.1); Alkaline Phosphatase 85 U/L (38-126); Amylase 49 U/L (30-110); Anion Gap 11 mmol/L (4-12); Aspartate Amino Transferase 27 U/L (14-36); Bilirubin,Total 0.9 mg/dL (0.2-1.3); Blood Urea Nitrogen 14 mg/dL (7-17); Calcium 9.9 mg/dL (8.4-10.2); Carbon Dioxide 23 mmol/L (22-30); Chloride 106 mmol/L (98-107); Estimated Glomerular Filt Rate > 60; Glucose 140 mg/dL (65-110); Lipase 36 U/L (23-300); Osmolality Calculated 292 mOsm/kg (285-295); Potassium 4.7 mmol/L (3.4-5.0); Sodium 140 mmol/L (137-145); Total Protein 6.9 g/dL (6.3-8.2)
[2024-12-27 09:35] LABS: Hemoglobin A1C 5.7 % (<5.7)
== END 2024-12-26 15:07 | disposition home or self-care (01) ==
PROVIDERS: PCP Family Medicine; Visit Provider Family Medicine
DX: R10.9 Unspecified abdominal pain (principal)
CPT/HCPCS: 36415; 80053; 81003; 82150; 83036; 83690; 85025

== ENCOUNTER 2025-01-02 08:34 | Outpatient (CLI) | payer OTHER, SELFPAY ==
--- OUTSIDE RECORDS SUMMARY | 2015-08-25 08:41 | XMS_ITS | Continuity of Care Document ---
Demographics Address [address] [place] [address] Work Phone Home Phone Preferred Language und Marital Status Never Orthodoxy Affiliation Spiritism Race White Ethnic Group Not or Lati no Author Organization [facility] Address [address] [place] [address] Phone Care Team Providers Care Library Helper Name Role Phone Unavailable Unavailable Unavailable Allergies, Adverse Reactions, Alerts Substance Reaction Status Criticality No Known Allergies Active No Inform ation Procedures Procedure Date OFFICE/OUTPATIENT VISIT, NEW OFFICE/OUTPATIENT VISIT, [facility] Advance Directives Directive Yes / No Effective Date File Name No Information Encounters Encounter Description Practice Location Reason(s) For Visit Diagnoses Date Provider Providers Copied on Encounter [facility], [address] [place], [address], tel: [phone] [facility] No Information 6 No Information OFFICE/OUTPA TIENT VISIT, [facility], [address] [place], [address], tel: [phone] [facility] infertility (chief complaint)ab normal bleeding (chief complaint)co ntinue (chief complaint) Secondary oligomenorrhea Female infertility associated with anovulation 6 No Information OFFICE/OUTPA TIENT VISIT, [facility], [address] [place], [address], [place] tel: [phone] [facility] Bronchitis, Acute 3 5 [facility] [address], [id number], [place]. tel:[phone] Referring Provider: Hannah Nam, [address], [place], [address] . tel:[phone] Family History Family Member Type Diagnosis Age At Onset Paternal grandfather Problem (finding) CVA Maternal grandmother Problem (finding) Diabetes mellit us Father Problem (finding) alcoholism Father Problem (finding) Cirrohsis Maternal grandmother Problem (finding) [place], CAD Mother Problem (finding) Bipolar Maternal grandmother [...] Date Complaint History Of Prese nt Illness abnormal bleeding Additional inf ormation: First day of last menses 04/18 or 2 and last about 4 days then had a single day of spotting after that. Prior to April patient had a cycle sometime in December.. infertility The age of menar milad onset [...] for about 16 months without successful . continue Patient reports this has been her [...] cleared). Patient was seeing Dr. Campos in [place] and Dr. Tovar in [place].Discussed with patient and partner obtaining records before ordering additional work-up at this time. Patient and partner advised they must quit smoking if we are going to assist them in getting . Reviewed increased risk of miscarriage with smoking. Patient and partner expressed understanding. Functional Status Date Functional Assessmen t No Information Instructions Date Instruction Additional Infor manisha Patient and partner advised to stop smoking before we will do anything to assist with infertility. Related to Female infertility associated with anovulation Will begin by obtain ing past records to determine what work-up has been performed and when labs were obtained. Will plan further testing and follow-up after that information is obtained. Related to Secondary oligomenorrhea See detailed plan. Related to Se condary oligomenorrhea Assessments Type Assessment Date No Information Patient Care Teams Name Effective Dates (start - stop) Status Members No Information
--- NOTE | ~2025-01-02 | US_ITS ---
US abdomen complete EXAMINATION: US Abdomen Complete INDICATION: Abdominal pain PROCEDURE: Realtime High Resolution abdomen ultrasound. COMPARISON: No prior studies for comparison FINDINGS: Gallbladder is surgically absent. Common bile duct measures 4 mm. Liver echotexture is increased, consistent with fatty infiltration.. Pancreas within normal limits. Pancreatic tail is obscured by bowel gas. Spleen is unremarkeable. Renal echotexture is within normal limits bilaterally without hydronephrosis, contour deforming mass or renal stone. Right kidney measures 9.8 cm. Left kidney measures 10.6 cm. Visualized aspects of the aorta and IVC are within normal limits. Portal vein is patent. No sonographic Sheridan's sign indicated by the technologist. IMPRESSION: 1: Fatty infiltration of the liver. Reviewed, dictated and finalized at location O.
--- OUTSIDE RECORDS SUMMARY | 2025-01-02 09:12 | XMS_ITS | Clinical Summary ---
Author Organization [facility] Address [address] [place] [address] Care Team Providers Care Customer Quality Engineer Name Role Phone Dixie Plaza MD Primary Care Provider [phone] Source Comments [facility],non-owned Affiliates and Associated Physician Practices is amultiple site organization consisting of ambulatory clinics and hospital sitesin [place], [place], [place] and [place]. This disclosure is being madepursuant to the Care Everywhere program and may not contain all information available regarding this patient. Last updated 18.[facility] [employer] Social History Tobacco Use Types Packs/Day Years [...] VACCINE (1 - 3-dose SCDM series) 2021 DEPRESSION SCREENING 04/18/2024 COVID-19 VACCINE (1 - 2023-2 5 season) 2024 INFLUENZA VACCINE (#1) 2024 ZOSTER VACCINE (1 [...] patient's age to complete this topic Insurance [facility] Care Teams Customer Quality Engineer Relationship Specialty Start Date End Date Dixie Plaza MD [address] [place] [address] PCP - General Internal Medicine 01/31/19
--- OUTSIDE RECORDS SUMMARY | 2025-01-02 09:12 | XMS_ITS | Clinical Summary ---
Author Organization [facility] Medical Office Building [address] Address [address] [place] [address] Care Team Providers Care Associate Consulting Engineer Name Role Phone Dixie Plaza MD [...] (06/10/2020): Added automatically from request for surgery [id number] Symptomatic cholelithiasis 04/17/2020 Overview (04/17/2020): Added automatically from request for surgery [id number] Assessment & Plan (05/13/2020 8:54 AM LOG CHIPPER OPERATOR): No heavy lifting for 4 weeks. No submerging incisions for 4 weeks. Right upper quadrant pain 01/10/2020 Assessment & Plan (04/15/2020 9:05 AM LOG CHIPPER OPERATOR): Patient with symptomatic cholelithiasis. We are trying to wait to see if he could do the gallbladder and sleeve at the same time but she does not feel like she can make it given the pain that she is having. We will therefore set her up for cholecystectomy. Assessment & Plan (03/11/2020 9:16 AM LOG CHIPPER OPERATOR): Patient is set to have a right [...] 01/10/2020 Assessment & Plan (06/10/2020 9:38 AM LOG CHIPPER OPERATOR): She is set to see psych at the end of the month as well as undergo her EGD. We will then send all other information in for precertification. Her preoperative diet instructions have been given in the dietitian has gone over them. No further questions about surgery at this time. Assessment & Plan (05/13/2020 8:54 AM LOG CHIPPER OPERATOR): The patient will continue to work on small frequent meals with a goal calorie intake of around 1600. She is set to see psych in early June. We will set her up for an EGD in between this time. Once that has been completed we will then pre certify her and get her ready for surgery. Assessment & Plan (04/15/2020 9:06 AM LOG CHIPPER OPERATOR): She has done extremely well contributing this to really watching her portion size. She will continue to do small frequent meals. She has already seen the dietitian. She needs to see psych. We will see her back in 4 weeks. Assessment & Plan (03/11/2020 9:17 AM LOG CHIPPER OPERATOR): The patient has done well having lost [...] (05/29/2020): Added automatically from request for surgery [id number] Surgical History Surgery Date Site/Laterality Comments CHOLECYSTECTOMY [...] on file Legal Sex Female 9:01 AM LOG CHIPPER OPERATOR Gender Identity Not on file Sexual [...] 2021 Influenza Vaccine (#1) 2024 03/12/2019 Insurance [facility] Advance Directives For more information, please contact: [phone] * Full Code (Latest Code Status on File) Date Activated Date Inactivated Comments 06/17/2020 12:07 PM 06/17/2020 5:48 PM * Full Code Date Activated Date Inactivated Comments 06/17/2020 12:07 PM 06/17/2020 12:07 PM Care Teams Associate Consulting Engineer Relationship Specialty Start Date End Date Dixie Plaza MD PCP - General Internal Medicine 10/26/19
--- OUTSIDE RECORDS SUMMARY | 2025-01-02 09:12 | XMS_ITS | Clinical Summary ---
Author Organization [facility] Address [address] [place] [address] Phone Care Team Providers Care Skip Locator Name Role Phone Iam Riley MD Primary Care Provider [phone] Dorian Cortez MD Unavailable [phone] Allergies No known active allergies Medications levonorgestrel [...] Insurance [employer]ICAID [facility] Care Teams Skip Locator Relationship Specialty Start Date End Date Ima Riley MD [address] [place] [facility] [place] [address] PCP - General Pediatrics 12/27/22 Dorian Cortez MD [address] [place] [phone] Consulting Physician Neurology 12/07/22
== END 2025-01-02 08:35 | disposition home or self-care (01) ==
PROVIDERS: PCP Family Medicine; Visit Provider Family Medicine
DX: R10.9 Unspecified abdominal pain (principal); K76.0 Fatty (change of) liver, not elsewhere classified
CPT/HCPCS: 76700

== ENCOUNTER 2025-02-06 20:57 | Emergency (ER) | payer OTHER, SELFPAY ==
--- NOTE | ~2025-02-06 | XR_ITS ---
XR hand RT min 3V INDICATION: FALL. PAIN POSTERIOR RIGHT HAND. PAIN 4TH AND 5TH DIGITS . COMPARISON: None. FINDINGS: Frontal, lateral, and oblique views of the right hand demonstrate no acute fracture or dislocation. IMPRESSION: Radiographic examination of the right hand demonstrates no acute fracture or dislocation. Reviewed, dictated and finalized at location S. IMPRESSION: Radiographic examination of the right hand demonstrates no acute fracture or di slocation.
--- NOTE | ~2025-02-06 | XR_ITS ---
XR wrist RT min 3V INDICATION: PAIN RIGHT WRIST AFTER FALL. . COMPARISON: None. FINDINGS: Frontal, lateral and oblique views of the right wrist were obtained. No acute fracture is seen. IMPRESSION: No acute fracture or dislocation. Reviewed, dictated and finalized at location S.
--- NOTE | ~2025-02-06 | XR_ITS ---
XR knee RT 3V INDICATION: FALL. ABRASION AND PAIN TO ANTERIOR RIGHT KNEE. . COMPARISON: None. FINDINGS: Frontal, lateral and oblique views of the right knee demonstrate no acute fracture or dislocation. There is no joint effusion. IMPRESSION: Radiographic examination of the right knee demonstrates no acute fracture or dislocation. Reviewed, dictated and finalized at location S. IMPRESSION: Radiographic examination of the right knee demonstrates no acute fracture or di slocation.
[2025-02-06 20:57] VITALS: BP 169/110; PULSE 101; RESP 20; TEMP 36.4; O2SAT 99
--- OUTSIDE RECORDS SUMMARY | 2025-02-06 21:12 | XMS_ITS | Clinical Summary ---
Author Organization [facility] Address [address] [place] [address] Care Team Providers Care Telecom Manager Name Role Phone Dixie Plaza MD Primary [...] (06/10/2020): Added automatically from request for surgery [id number] Symptomatic cholelithiasis 04/17/2020 Overview (04/17/2020): Added automatically from request for surgery [id number] Assessment & Plan (05/13/2020 8:54 AM OLIVE KNOCKER): No heavy lifting for 4 weeks. No submerging incisions for 4 weeks. Right upper quadrant pain 01/10/2020 Assessment & Plan (04/15/2020 9:05 AM OLIVE KNOCKER): Patient with symptomatic cholelithiasis. We are trying to wait to see if he could do the gallbladder and sleeve at the same time but she does not feel like she can make it given the pain that she is having. We will therefore set her up for cholecystectomy. Assessment & Plan (03/11/2020 9:16 AM OLIVE KNOCKER): Patient is set to have a right [...] 01/10/2020 Assessment & Plan (06/10/2020 9:38 AM OLIVE KNOCKER): She is set to see psych at the end of the month as well as undergo her EGD. We will then send all other information in for precertification. Her preoperative diet instructions have been given in the dietitian has gone over them. No further questions about surgery at this time. Assessment & Plan (05/13/2020 8:54 AM OLIVE KNOCKER): The patient will continue to work on small frequent meals with a goal calorie intake of around 1600. She is set to see psych in early June. We will set her up for an EGD in between this time. Once that has been completed we will then pre certify her and get her ready for surgery. Assessment & Plan (04/15/2020 9:06 AM OLIVE KNOCKER): She has done extremely well contributing this to really watching her portion size. She will continue to do small frequent meals. She has already seen the dietitian. She needs to see psych. We will see her back in 4 weeks. Assessment & Plan (03/11/2020 9:17 AM OLIVE KNOCKER): The patient has done well having lost [...] (05/29/2020): Added automatically from request for surgery [id number] Surgical History Surgery Date Site/Laterality Comments CHOLECYSTECTOMY [...] on file Legal Sex Female 9:01 AM OLIVE KNOCKER Gender Identity Not on file Sexual Orientation [...] 2021 Influenza Vaccine (#1) 2024 03/12/2019 Insurance [facility] Advance Directives For more information, please contact: [phone] * Full Code (Latest Code Status on File) Date Activated Date Inactivated Comments 06/17/2020 12:07 PM 06/17/2020 5:48 PM * Full Code Date Activated Date Inactivated Comments 06/17/2020 12:07 PM 06/17/2020 12:07 PM Care Teams Telecom Manager Relationship Specialty Start Date End Date Dixie Plaza MD PCP - General Internal Medicine 10/26/19
--- OUTSIDE RECORDS SUMMARY | 2025-02-06 21:12 | XMS_ITS | Encounter Summary ---
Author Organization [facility] Address [address] [place] [id number] Care Team Providers Care Information Systems Auditor Name Role Phone None, Provider Primary Care Provider Unavaila ble Encounter Details Date Type Department Care Team (Late st Contact Info) Description 09/23/2018 Abstract SFL CONVERSION [address] [place] [address] , Generic Conversion, Social History Tobacco Use Types Packs/Day Years Used Date Smoking Tobacco: Never Assessed Comments Unknown Sex and Gender Information Value Date Recorded Sex Assigned at Not on file Legal Sex Female 5:48 PM RAMP MANAGER Gender Identity Not on file Sexual Orientation Not on file documented as of this encounter Plan of Treatment Not on file documented as of this encounter Visit Diagnoses Not on filedocumented in this encounter Care Teams Information Systems Auditor Relationship Specialty Start Date End Date None, Provider, PCP - General 04/08/19 documented as of this encounter
--- OUTSIDE RECORDS SUMMARY | 2025-02-06 21:12 | XMS_ITS | Clinical Summary ---
Author Organization [facility] Address [address] [place] [address] Care Team Providers Care Leaflet Distributor Name Role Phone Dixie Plaza MD Primary Care Provider [phone] Source Comments [facility],non-owned Affiliates and Associated Physician Practices is amultiple site organization consisting of ambulatory clinics and hospital sitesin [place], [place], [place] and [place]. This disclosure is being madepursuant to the Care Everywhere program and may not contain all information available regarding this patient. Last updated 18.[facility] Social History Tobacco Use Types Packs/Day Years [...] patient's age to complete this topic Insurance [facility] Care Teams Leaflet Distributor Relationship Specialty Start Date End Date Dixie Plaza MD [address] [place] [address] PCP - General Internal Medicine 01/31/19
--- OUTSIDE RECORDS SUMMARY | 2025-02-06 21:12 | XMS_ITS | Clinical Summary ---
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 Gender Identity Not on file Sexual Orientation Not on file Last Filed Vital Signs Vital Sign Reading Time Taken Comments Blood Pressure 119/88 04/08/2019 2:25 AM NAIL TECHNICIAN Pulse 87 04/08/2019 2:25 AM NAIL TECHNICIAN Temperature 36.3 C (97.4 F) 04/08/2019 2:25 AM NAIL TECHNICIAN Respiratory Rate 20 04/08/2019 2:25 AM NAIL TECHNICIAN Oxygen Saturation 100% 04/08/2019 2:25 AM NAIL TECHNICIAN Inhaled Oxygen Concentration - - Weight - [...] with HPV 02/11/2024 COVID-19 Vaccine ( - 2024-2 6 season) 2024 Influenza Adult (#1) 2025 Hepatitis A Vaccines Aged Out No long er eligible based [...] patient's age to complete this topic [place] [address] [place] [address] Care Teams Sales Exhibitor Relationship Specialty Start Date End Date None, Provider, PCP - General 04/08/19
--- NOTE | 2025-02-06 21:13 | ED.FALL ---
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) Fall from: standing Place fall occurred: home Loss of consciousness: none Prolonged down time: no Symptoms prior to fall: none Context: tripped/slipped Location of injury: other (right wrist /hand, knee) Related Data Allergies Allergy/AdvReac Type Severity Reaction Status Date / Time No Known Allergies Allergy Verified 02/06/25 21:06 Review of Systems Review of Systems: All systems reviewed & are unremarkable except as noted in HPI and below Constitutional: Constitutional: Reports as per HPI and Reports no additional constitutional complaints Eyes: Eyes: Reports as per HPI and Reports no additional eye complaints ENT: Reports system reviewed and no additional complaints, except as documented and Reports as per HPI Cardiovascular: Cardiovascular: Reports as per HPI and Reports no additional cardiovascular complaints Respiratory: Respiratory: Reports as per HPI and Reports no additional respiratory complaints Gastrointestinal: Gastrointestinal: Reports as per HPI and Reports no additional gastrointestinal complaints Genitourinary: Genitourinary: Reports no additional female genitourinary complaints and Reports as per HPI Musculoskeletal: Musculoskeletal: Reports no additional musculoskeletal complaints and Reports as per HPI Comments: right hand, wrist and knee pain Integumentary/Breasts: Skin/Breast: Reports system reviewed and no additional complaints, except as docu and Reports as per HPI Neurologic: Reports system reviewed and no additional complaints, except as documented and Reports as per HPI Psychiatric: Psychiatric: Reports no additional psychiatric complaints and Reports as per HPI Endocrine: Endocrine: Reports no additional endocrine complaints and Reports as per HPI Hematologic/Lymphatic: Hematologic/Lymphatic: Reports no additional hematologic/lymphatic complaints and Reports as per HPI Allergic/Immunologic: Allergic/Immunologic: Reports no additional allergic/immunologic complaints and Reports as per HPI PMFSH Past Medical History Medical History Postprandial diarrhea Globus sensation RUQ pain Nausea Fatty liver Bronchitis Menorrhagia Nicotine addiction Screening for cervical cancer Morbid obesity Chronic low back pain Asthma History of streptococcal sore throat Surgical History Surgical History Hx laparoscopic cholecystectomy Apr 2020 Family History Family History Father Family history of renal failure Grandparent Diabetes mellitus Social History Social History Smoking status: Current every day smoker Alcohol use details: denies alcohol use Substance use: never Substance use type: does not use Living arrangements: with family Occupation/Education: unemployed Exam Const: General: healthy appearing Nutritional Appearance: obese Orientation/consciousness: patient oriented x3 Limitations: no limitations HENMT: Head: normal to inspection, no contusions, no hematomas and no lacerations Ears: external ears normal Face/Nose/Sinus: Normal external nose present Face and sinus: normal facial exam Eyes: Pupils: Equal, round and reactive pupils present EOM: EOMs intact bilaterally Direct Ophthalmoscopy: no photophobia Neck: Neck: normal visual inspection Other: non-tender Chest: Chest palpation & inspection: normal inspection of the chest and no tenderness Resp: Effort & Inspection: normal respiratory effort Cardio: Rate: regular rate GI: Inspection: non-distended GI Palp: Yes Soft to palpation and No Tenderness to palpation present (GI) Back/Spine/Pelvis: Back: no CVA tenderness Skin: General skin exam: normal color Rashes: no rashes Other: small abrasion to anterior right knee, no bleeding Neuro: General: patient oriented x3, moves all extremities, no meningeal signs, no focal motor deficits and CN's II-XI intact bilaterally Cranial nerves: Yes Nystagmus not present Speech: normal speech Gait exam (Neuro): Normal gait present Extrem: Other: tender to palpation ulnar aspect R wrist and lateral hand 4-5th MC's. 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 c/o right hand/wrist, knee injury. Denies striking head or LOC PE: tender ulnar aspect R wrist, R 4-5th MC, abrasion anterior R knee XR R Hand: negative XR R Wrist: negative XR R Knee: negative Tx: neosporin ointment R knee, rich wrap R wrist, Tramadol 50 mg po *reviewed and discussed results with patient. Discussed further management. Patient voices understanding and agreement. Rx and Instructions Vital Signs Vital signs: Vital Signs Temperature 36.4 C L 02/06/25 20:57 Pulse Rate 101 H 02/06/25 20:57 Respiratory Rate 20 02/06/25 20:57 Blood Pressure 169/110 H 02/06/25 20:57 Pulse Oximetry 99 02/06/25 20:57 Oxygen Delivery Room Air 02/06/25 20:57 Temperature 36.4 C L 02/06/25 20:57 Pulse Rate 101 H 02/06/25 20:57 Respiratory Rate 20 02/06/25 20:57 Blood Pressure 169/110 H 02/06/25 20:57 Pulse Oximetry 99 02/06/25 20:57 Oxygen Delivery Room Air 02/06/25 20:57 Discharge Plan Discharge Clinical Impression: Fall, Right wrist sprain, Contusion of right hand, Contusion of right knee, Abrasion of right knee Patient Disposition: Home Condition: Stable Instructions: Contusion in Adults (ED), Abrasion (ED), Wrist Sprain (ED) Additional Instructions: Rest right hand and wrist Rich wrap, ice and elevate for swelling Take medication as prescribed Neosporin ointment topically to abrasion 2-3x/day Follow up Primary Care Provider Patient Language: Yoruba Prescriptions: New tramadol 50 mg tablet 50 mg PO Q6H PRN (Reason: pain) Qty: 20 0RF No Action albuterol sulfate 90 mcg/actuation HFA aerosol inhaler 2 puff inhalation QID PRN (Reason: shortness of breath or wheezing) Qty: 8.5 0RF omeprazole 40 mg capsule,delayed release(DR/EC) 40 mg PO DAILY 30 Days Qty: 30 1RF cholestyramine (with sugar) [Questran] 4 gram powder in packet 4 g PO BID Qty: 60 5RF Rx Instructions: administer w/meal; avoid other meds within 1hr before or 4-6hr after dose Follow-up/Referrals: Iam Riley MD [Primary Care Provider, Internal Medicine] Time of Disposition: 21:36
--- NOTE | 2025-02-06 21:29 | PC.NURSE ---
HERO CESPEDES AT BEDSIDE FOR PT UPDATE INCLUDING RESULTS AND PLAN OF CARE.
[2025-02-06] MEDS: traMADol HCL (*CRX) 50 MG TABLET PO (21:45)
[2025-02-06] MEDS: NEOMYCIN/POLYMYXIN/BACITRACIN OINTMENT PACKET 1 PACKET (21:46)
== END 2025-02-06 22:06 | disposition home or self-care (01) ==
PROVIDERS: Emergency Provider Emergency Medicine; PCP Family Medicine
DX: S80.01XA Contusion of right knee, initial encounter (principal); S60.221A Contusion of right hand, initial encounter; S63.501A Unspecified sprain of right wrist, initial encounter; S80.211A Abrasion, right knee, initial encounter; W01.0XXA Fall on same level from slipping, tripping and stumbling without subsequent striking against object, initial encounter; F17.200 Nicotine dependence, unspecified, uncomplicated
CPT/HCPCS: 73110; 73130; 73562; 99283; A9270